=== PATIENT | male | born 1955 | race Caucasian/White ===

== ENCOUNTER → 2017-06-04 | Outpatient (CLI) | payer BC ==
[~2017-06-04] MED LIST: AMLO2.5T PO; ASPI1TAB83 PO; CLOP1TAB5 PO; CPR500 PO; GLC/500 PO; KLN5 PO; LOSA50TA54 PO; LPT/40 PO; NTRGSL/4 SL; PROP80CA7 PO; SERT1TAB92 PO
--- NOTE | 2017-06-04 14:44 | DIAGNOSTIC IMAGING REPORT ---
VIDEO SWALLOW HISTORY: DYSPHASIA TECHNIQUE: Video fluoroscopic evaluation of swallowing was performed in the AP and lateral projections by the speech pathology staff. The patient is fed nectar-thick and thin liquid barium, a barium coated wafer, and barium pudding. FLUOROSCOPY TIME: 1.4 minutes. NUMBER OF FLUOROSCOPY IMAGES: 0 COMPARISON STUDY: None. FINDINGS: There is normal hyoid excursion and epiglottic deflection. No significant penetration or aspiration identified. Swallowing function is within normal limits. IMPRESSION: 1. No aspiration identified. 2. Please see the speech pathologist report for detailed findings and recommendations. Electronically signed by: Kenneth Soto M.D. 06/04/2017 2:43 PM Dictated Date/Time: 06/04/2017 2:41 PM
--- NOTE | 2017-06-04 18:44 | SWALLOWING EVALUATION ---
REFERRING SPEECH PATHOLOGIST: n/a HISTORY: This 61 year-old male was referred for a VFSS at [facility] in order to address c/o difficulty swallowing while wearing CPAP and difficulty swallowing liquids in sequential swallows. Specifically, the patient states he has trouble drinking soda quickly. The patient has a PMH significant for mood disorder, UTI, DM II, and hypertension. He denies GERD, solid food dysphagia and odynophagia. Currently the patient's diet level is regular. PROCEDURE: The patient was seen in the Radiology Department of [facility] for the VFSS. Cursory examination of the oral cavity revealed adequate dentition. Movement of the articulators was WNL. The patient was seated on a stool and was viewed in both the Anterior-Posterior (A-P) and Lateral planes. Volitional phonation exercises completed in the A-P plane revealed bilateral vocal fold movement and vocal intensity within functional limits. In the lateral plane, the patient was given the following boluses: 1 tsp. thin liquid barium x 2, single swallow thin liquid barium self-presented from a cup, sequential swallows of thin liquid barium self-presented from a cup, 1 tsp. nectar-thick liquid barium, single swallow nectar-thick liquid barium self-presented from a cup, 1 tsp. barium pudding, and 1 club cracker with barium pudding. The patient was then repositioned into the A-P plane and given 1 tsp. barium pudding. RESULTS: Oral Stage: Labial seal, bolus control, mastication and bolus transport were all WNL. No oral bolus retention after the swallow. Initiation of the pharyngeal swallow occurred when the bolus head was in the valleculae. Oral stage of swallow considered WNL. Pharyngeal Stage: Soft palate elevation was complete. Laryngeal elevation was partial as noted by flash penetration during sequential swallows of thin liquids. Anterior hyoid excursion, epiglottic inversion and laryngeal vestibular closure appeared to be complete. Pharyngeal stripping wave was complete. There was (L) side unilateral pharyngeal bulging seen in the AP plane during the study. This cleared with a dry swallow. Distention and duration of PES opening was complete. There was a narrow column on contrast between the tongue base and pharyngeal wall with resultant mild vallecular and pyriform sinus bolus retention after the swallow. This correlates to the previously mentioned unilateral bulging and also cleared with a dry swallow. There was a single episode of flash penetration and no aspiration during this study. The pharyngeal stage of the swallow is considered mildly impaired with no real functional implications. Esophageal Stage: A pudding bolus transited the esophagus without retention. SUMMARY/RECOMMENDATIONS: This patient presents with mild pharyngeal dysphagia that does not impair swallow safety. The following is recommended: 1. Regular diet as tolerated 2. Consideration of f/u with otolaryngology and/or gastroenterology if c/o cough persist. May need to more formally r/o GERD or LPR. A summary of the results and recommendations was discussed with the patient immediately following the study. He verbalized understanding and is anticipating f/u with the referring physician. Thank you for referral of this patient. Please contact me at if any additional information is needed.
== END | disposition home or self-care (01) ==
LOC: C.RAD 13:20
PROVIDERS: ATTEND Psychiatry & Neurology Neurology
DX: R13.10 Dysphagia, unspecified (principal)

== ENCOUNTER 2024-04-12 17:52 | Inpatient (IN) ==
--- OUTSIDE RECORDS SUMMARY | 2024-04-12 17:59 | External Medical Summary | Summary of Care ---
Author Name Unknown Organization [facility] Address [address] [place] [address] Phone [phone] Care Team Providers Care Frontend Engineer Name Role Phone Lenard King MD Primary Care Provider [phone] Reason for Visit * Reason Onset Date Comments Advice 04/02/2024 Encounter Details Date Type Department Care Team (Late st Contact Info) Description 04/02/2024 Telephone [facility] [address] [place] [address] Lenard King MD [address] [place] [address] Advice Allergies Active Allergy Reactions Criticality Noted Date Comments Bee Venom Anaphylaxis High 04/26/2017 Lisinopril 08/06/2017 Cough documented as of this encounter (statuses as of 04/02/2024) Medications Medication Sig Dispensed Refills Start Date End Date Status FISH OIL 1000 MG PO CAPS one daily Active GARLIC 500 MG PO CAPS one daily Active CO Q 10 60 MG PO CAPS one daily Active ASPIRIN 81 MG PO TABS one daily Active Cod Liver Oil 1000 MG CAPS Take by mouth. Active Zoster Vac Recomb Adjuvanted 50 MCG/0.5ML Intramuscular Suspension Reconstituted (Shingrix)Indication s:Need for shingles vaccine Inject 0.5 mL into a large muscle now and repeat dose in 60 to 180 days 1 Each 1 12/10/2020 Active Additional Information Patient not taking.Reported on 03/18/2024 ARIPiprazole 2 MG Oral Tablet (Abilify) 1 Tablet in the morning. 08/02/2021 Active Lancets Use as directed. 100 Each 11 08/29/2021 Active OneTouch Ultra Blue In Vitro Strip (Glucose Blood) Use as directed 4 times a day as needed (glucose check). Use up to four times a day as directed 100 Strip 11 08/29/2021 Active hydrOXYzine HCl 50 MG Oral Tablet 03/06/2023 Active cloNIDine HCl 0.1 MG Oral Tablet (Catapres) Take 1 Tablet by mouth in the morning and 1 Tablet before bedtime. 180 Tablet 3 03/09/2024 Active Losartan Potassium-HCTZ 100-25 MG Oral Tablet (Hyzaar) Take 1 Tablet by mouth in the morning. 90 Tablet 3 03/09/2024 Active Venlafaxine HCl 37.5 MG Oral Tablet (Effexor) Take 1 Tablet by mouth in the morning and 1 Tablet before bedtime. 180 Tablet 3 03/09/2024 Active metFORMIN HCl 1000 MG Oral Tablet (Glucophage)Indicati ons:Type 2 diabetes mellitus with hemoglobin A1c goal of less than 7.0% (HCC) Take 1 Tablet by mouth 2 times a day with morning and evening meals. 180 Tablet 3 03/09/2024 Active Empagliflozin 10 MG Oral Tablet (Jardiance) Take 1 Tablet by mouth in the morning. 30 Tablet 11 04/02/2024 Active Hospital, Clinic, or Other Facility Administered Medication Ordered Dose Route Frequency Start Date End Date Status atropine sulfate inj 0.4 mgIndications:SOB (shortness of breath) 0.4 mg IV PUSH PRN 04/25/2018 Act ry documented as of this encounter (statuses as of 04/02/2024) Active Problems Problem Noted Date Diagnosed Date Class 2 obesity due to exces s calories without serious comorbidity with body mass index (BMI) of 37.0 to 37.9 in adult 02/13/2024 S/P angioplasty with stent 03/19/2022 Coronary artery disease invo lving [place] heart without angina pectoris 03/19/2022 Prostate cancer 08/17/2020 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 0 to 44.9 in adult 06/10/2017 10/19/2021 Overview: Per Obesity protocol #1 Obesity, morbid (more than 1 00 lbs over ideal weight or BMI > 40) 04/12/2017 02/13/2024 Overview: Per Obesity protocol #1 BMI 40.0-44.9, adult 04/10/2017 017 Overview: Per Obesity protocol #1 Depression 10/05/2014 08/11/2021 Obesity, Class I, BMI 30.0-3 4.9 (see actual BMI) 04/06/2013 04/10/2017 BMI 40.0-44.9, adult 08/29/2011 013 documented as of this encounter (statuses as of 04/02/2024) Immunizations Name Administration Dates Next Due Hepatitis B, 20+ yrs 04/06/2013,10/17/2012,09/15 PPD 10/16/2021,09/10/2012 TD - Tetanus/Diptheria (ADULT) 03/09/2007 TDAP (age 10 and older)(Boostrix) 09/15/2012 documented as of this encounter Social History Tobacco Use Types Packs/Day Years Used Date Smoking Tobacco: Never Passive Smoke Exposure: Never Smokeless Tobacco: Never Alcohol Use Standard Drinks/Week Comments No 0 (1 standard drink = 0.6 oz pur e alcohol) PHQ-2 Answer Date Recorded PHQ Adult Total Score 0 03/09/2024 Hunger Vital Sign Answer Date Recorded Within the past 12 months, y ou worried that your food would run out before you got the money to buy more. Patient declined Within the past 12 months, t he food you bought just didn't last and you didn't have money to get more. Patient declined 02/2024 Childcare Answer Date Recorded Do you feel overwhelmed with taking care of a child, family member or friend? No 02/13/2024 Does your family need help f inding childcare? (Household - for ages 0-17 years) Not on file 02/13/2024 Clothing Answer Date Recorded Have you been unable to get clothing when it was really needed? No 02/13/2024 Is your family able to get c lothes or diapers when needed? (Household - for ages 0-17 years) Not on file 02/13/2024 Personal Safety Answer Date Recorded Do you feel unsafe or have concerns for your saf ety? No 02/13/2024 Do you have concerns for you r family's safety? (Household - for ages 0-17 years) Not on file 02/13/2024 Utilities Answer Date Recorded Do you have trouble paying y our heating, water, or electric bill? No 02/13/2024 Is your family able to pay t he heat, water, or electric bill? (Household - for ages 0-17 years) Not on file 02/13/2024 Does your family have access to good internet? (Household - for ages 0-17 years) Not on file 02/13/2024 Employment Status Answer Date Recorded Are you unemployed or without regular income? No 02/13/2024 Does the household have a re gular source of income? (Household - for ages 0-17 years) Not on file 02/13/2024 Social Connections Answer Date Recorded How often do you feel lonely or isolated from th ose around you? Never 02/13/2024 Financial Resource Strain Answer Date R ecorded Do you have any trouble payi ng for your medications, or do you think you might in the future? No 02/13/2024 Does your family have troubl e paying for medicine? (Household - for ages 0-17 years) Not on file 02/13/2024 Transportation Needs Answer Date Record ed READ ONLY Do you have troubl e getting a ride to medical visits or work? Never True 02/13/2024 Does your family have a hard time getting a ride to doctors visits? (Household - for ages 0-17 years) Not on file 02/13/2024 Has lack of transportation k ept you from medical appointments, meetings, work, or from getting things needed for daily living? Check all that apply. (Adult - for ages 18 years and over) Not on file 02/13/2024 Do you (or your family) have trouble finding or paying for a ride (transportation)? (Household - for ages 0-17 years) Not on file 02/13/2024 Housing Stability Answer Date Recorded Do you currently live in a s helter or have no steady place to sleep at night? No 02/13/2024 READ ONLY Do you think you a re at risk of becoming homeless? No 02/13/2024 Does your family worry about paying for your home or becoming homeless? (Household - for ages 0-17 years) Not on file 0 02/13/2024 Are you homeless or worried that you might be in the future? (Adult - for ages 18 years and over) Not on file Are you (or your family) abisai eless or worried that you might be in the future? (Household - for ages 0-17 years) Not on file Food Insecurity Answer Date Recorded Do you need food for this week? No 02/13/2024 Are you able to get enough f ood for your family? (Household - for ages 0-17 years) Not on file 02/13/2024 Does your family need food t his week? (Household - for ages 0-17 years) Not on file 02/13/2024 Do you always have enough fo od for your family? (Household - for ages 0-17 years) Not on file 02/13/2024 Sex and Gender Information Value Date Recorded Sex Assigned at Male 02/13/2024 9:07 AM EDT Gender Identity Male 02/13/2024 9:07 AM EDT Sexual Orientation Straight 02/13/2024 9: 07 AM EDT Job Start Date Occupation Industry Not on file Not on file Not on file documented as of this encounter Miscellaneous Notes * Addendum Note - Lenard King MD - 04/02/2024 5:07 PM EDTAddended by: LENARD KING on: 04/02/2024 05:07 PM Modules accepted: Orders * Telephone Encounter - Lenard King MD - 04/02/2024 5:07 PM EDT Sent * Telephone Encounter - Opal Ashraf LPN - 04/02/2024 3:19 PM EDT Called and spoke with patients who states patient wanted her to speak with us and patient was agreeable to starting Jardiance as well. Please send prescription to [facility] in [place] * Telephone Encounter - Lenard King MD - 04/02/2024 3:10 PM EDT His glucose was much better though Hba1c was 7.6 from 10 this month But also agree that his DM should be better controlled too Would suggest jardiance 10 mg daily if pt agrees * Telephone Encounter - Opal Ashraf LPN - 04/02/2024 2:26 PM EDT Please advise, would you like patient to be seen for an appointment? Patient was last seen 03/09/2024 * Telephone Encounter - Prema Mena OSA - 04/02/2024 2:20 PM EDT Patient's calling in today as the pt went to neurology yesterday and the neurologist called the pt today and advised that they think the pt's confusion spells are due to his glucose levels are high and the neurologist suggested pt's diabetes medication be changed to correct the confusion Please call Margo to discuss and advise documented in this encounter Plan of Treatment Upcoming Encounters Date Type Department Care Team (Late st Contact Info) Description 05/13/2024 8:15 AM EDT Office Visit Urology [facility]azan [address] [address] Luis Senra Jr., MD [address] [address] 06/09/2024 7:40 AM EDT Office Visit [facility] [address] [place] [address] Lenard King MD [address] [place] [address] Scheduled Procedures Name Priority Associated Diagnoses Date/Ti me COLONOSCOPY FLEXIBLE PROXIMA L DIAGNOSTIC Recall Special screening for malignant neoplasms, colon Health Maintenance Due Date Last Done Comments Pneumococcal Vaccine: 65+ Years (1 of 2 - PCV) 1960 Cologuard 1999 Fecal Occult Blood Test 1999 Sigmoidoscopy 1999 Colonoscopy 11/03/2022 11/03/2012, 10/11, 09/05/2011 COVID-19 Vaccine ( season) 2023 Influenza Vaccine (FLU shot) (#1) 2024 HbA1c 08/14/2024 02/13/2024, 01/08, 10/19/2021, Additional history exists Albumin/Creatinine Ratio 02/12/2025 02/13/2024, 02/08 B-12 02/12/2025 02/13/2024, 02/08, 06/04/2017 GFR 02/12/2025 02/13/2024, 01/08, 10/19/2021, Additional history exists Depression Monitoring 03/09/2025 03/09/2024 DTaP,Tdap,and Td Vaccines Discontinued 09/15/2012, 09/2006 Hepatitis B Vaccine Completed 04/06/2013, 10/17/2012, 09/15/2012 *BASELINE EKG FOR HTN Completed 04/21/2018, 011 Diabetic Foot Exam Discontinued 08/11/2021, 0 03/04/2020, 01/13/2019, Additional history exists Diabetic Eye Exam Discontinued 02/13/2024, , 04/18/2017, Additional history exists Colorectal Cancer Screening Discontinued HPV (Gardasil) Vaccine Aged Out No lo nger eligible based on patient's age to complete this topic Hepatitis C Screening Discontinued MENINGOCOCCAL (MENACTRA/MENVEO) Aged Out No longer eligible based on patient's age to complete this topic Zoster Vaccines Discontinued documented as of this encounter Medical Devices Implanted Type Area Boiler House Operator Device Identifier Shelf Expiration Date Model / Serial / Lot Lens Intraoc 19.0 - [id number] - [id number] Implanted:Qty: 1 on 01/20/2019 by Sushil Waller MD at [facility] Left: Eye [employer] 08/08/2023 [id number] / [id number] / [id number] Lens Intraoc 19.5 - [id number] - [id number] Implanted:Qty: 1 on 02/05/2019 by Sushil Waller MD at OR [facility] Right: Eye [employer] 2023 [id number] / [id number] / [id number] documented as of this encounter Care Teams Frontend Engineer Relationship Specialty Start Date End Date Lenard King MD [address] [place] [address] PCP - General Internal Medicine 01/31/23 documented as of this encounter
--- OUTSIDE RECORDS SUMMARY | 2024-04-12 17:59 | External Medical Summary | Summary of Care ---
Author Name Unknown Organization [facility] Address [address] [place] [address] Phone [phone] Care Team Providers Care Central Aisle Cashier Name Role Phone Lenard King MD Primary Care Provider [phone] Encounter Details Date Type Department Care Team (Late st Contact Info) Description 04/09/2024 Telephone [facility] [address] [place] [address] Lenard King MD [address] [place] [address] Allergies Active Allergy Reactions Criticality Noted Date Comments Bee Venom Anaphylaxis High 04/26/2017 Lisinopril 08/06/2017 Cough documented as of this encounter (statuses as of 04/09/2024) Medications Medication Sig Dispensed Refills Start Date [...] Recomb Adjuvanted 50 MCG/0.5ML Intramuscular Suspension Reconstituted (Shingrix)Indicati ons:Need for shingles vaccine Inject 0.5 mL into a large muscle now and repeat dose in 60 to 180 days 1 Each 1 1 Active Additional Information Patient not taking.Reported on 03/18/2024 ARIPiprazole 2 MG Oral Tablet (Abilify) 1 Tablet in the morning. 11/24/202 1 Active Lancets Use as directed. 100 Each 11 1 Active OneTouch Ultra Blue In Vitro Strip (Glucose Blood) Use as directed 4 times a day as needed (glucose check). Use up to four times a day as directed 100 Strip 11 1 Active hydrOXYzine HCl 50 MG Oral Tablet 3 Active cloNIDine HCl 0.1 MG Oral Tablet (Catapres) Take 1 Tablet by mouth in the morning and 1 Tablet before bedtime. 180 Tablet 3 4 Active Losartan Potassium-HCTZ 100-25 MG Oral Tablet (Hyzaar) Take 1 Tablet by mouth in the morning. 90 Tablet 3 4 Active Venlafaxine HCl 37.5 MG Oral Tablet (Effexor) Take 1 Tablet by mouth in the morning and 1 Tablet before bedtime. 180 Tablet 3 4 Active metFORMIN HCl 1000 MG Oral Tablet (Glucophage)Indica tions:Type 2 diabetes mellitus with hemoglobin A1c goal of less than 7.0% ([facility]) Take 1 Tablet by mouth 2 times a day with morning and evening meals. 180 Tablet 3 4 Active glipiZIDE ER 5 MG Oral Tablet Extended Release 24 Hour (glipiZIDE XL) Take 1 Tablet by mouth in the morning. 30 minutes before a meal.. 30 Tablet 5 4 Active Empagliflozin 10 MG Oral Tablet (Jardiance) Take 1 Tablet by mouth in the morning. 30 Tablet 11 4 04/09/20 24 Discontinued Hospital, Clinic, or Other Facility Administered Medication Ordered Dose Route Frequency Start Date End Date Status atropine sulfate inj 0.4 mgIndications:SOB (shortness of breath) 0.4 mg IV PUSH PRN 04/25/2018 Act ry documented as of this encounter (statuses as of 04/09/2024) Active Problems Problem Noted Date Diagnosed Date Class 2 obesity due to exces s calories without serious comorbidity with body mass index (BMI) of 37.0 to 37.9 in adult 02/13/2024 S/P angioplasty with stent 03/19/2022 Coronary artery disease invo lving [place] heart without angina pectoris 03/19/2022 Prostate cancer [...] as of this encounter (statuses as of 04/09/2024) Resolved Problems Problem Noted Date Diagnosed Date [...] as of this encounter (statuses as of 04/09/2024) Immunizations Name Administration Dates Next Due Hepatitis [...] as of this encounter Miscellaneous Notes * Telephone Encounter - Lenard King MD - 04/09/2024 12:37 PM EDT Will send glipizide 5 mg daily which is cheap * Telephone Encounter - Jaime Mccann MED ASSIST - 04/09/2024 12:31 PM EDT Please advise * Telephone Encounter - Mariella Simental conference center coordinator - 04/09/2024 11:39 AM EDT RE Empagliflozin 10 MG Oral Tablet (Jardiance Pt can not afford above medication Please send an alternative I did sent a request to rx assist for help also Thank you for your assistance Mariella Simental Social Work Lecturer II [facility] 04/09/2024,11:40 AM documented in this encounter Plan of Treatment Upcoming Encounters Date Type Department Care Team (Late st Contact Info) Description 05/13/2024 8:15 AM EDT Office Visit Urology Dalila Bazan [address] [facility] [address] [address] Luis Serna Jr., MD [address] [address] 06/09/2024 7:40 AM EDT Office Visit [facility] [address] [place] [facility] [place] [address] Lenard King MD [address] [place] [address] Scheduled Procedures Name Priority Associated [...] Hepatitis B Vaccine Completed 04/06/2013, 10/17/2012, 09/15/2012 Diabetic Foot Exam Discontinued 08/11/2021, 0 03/04/2020, [...] this encounter Medical Devices Implanted Type Area House Manager Device Identifier Shelf Expiration Date Model / Serial / Lot Lens Intraoc 19.0 - [id number] - [id number] Implanted:Qty: 1 on 01/20/2019 by Sushil Waller MD at [facility] Left: Eye [employer] 08/08/2023 [id number] / [id number] / [id number] Lens Intraoc 19.5 - [id number] - [id number] Implanted:Qty: 1 on 02/05/2019 by Sushil Waller MD at OR [facility] Right: Eye [employer] 2023 [id number] / [id number] / [id number] documented as of this encounter Care Teams Central Aisle Cashier Relationship Specialty Start Date End Date Lenard King MD [address] [place] [id number] PCP - General Internal Medicine 01/31/23 documented as of this encounter
--- OUTSIDE RECORDS SUMMARY | 2024-04-12 17:59 | External Medical Summary | Summary of Care ---
Author Name Unknown Organization [facility] Address [address] [place] [address] Phone [phone] Care Team Providers Care Industrial Pipefitter Journeyman Name Role Phone Lenard King MD Primary Care Provider [phone] Reason for Visit * Reason Onset Date Comments Patient Assistance Program 04/09/2024 Empag liflozin 10 MG Oral Tablet (Jardiance Encounter Details Date Type Department Care Team (Late st Contact Info) Description 04/09/2024 Telephone [facility] [address] [place] [address] Lenard King MD [address] [place] [address] Patient Assistance Program (Empagliflozin ... Allergies Active Allergy Reactions Criticality Noted Date Comments Bee Venom Anaphylaxis High 04/26/2017 Lisinopril 08/06/2017 Cough documented as of this encounter (statuses as of 04/11/2024) Medications Medication Sig Dispensed Refills Start Date [...] evening meals. 180 Tablet 3 03/09/2024 Active Hospital, Clinic, or Other Facility Administered Medication Ordered Dose Route Frequency Start Date End Date Status atropine sulfate inj 0.4 mgIndications:SOB (shortness of breath) 0.4 mg IV PUSH PRN 04/25/2018 Act ry documented as of this encounter (statuses as of 04/11/2024) Active Problems Problem Noted Date Diagnosed Date Class 2 obesity due to exces s calories without serious comorbidity with body mass index (BMI) of 37.0 to 37.9 in adult 02/13/2024 S/P angioplasty with stent 03/19/2022 Coronary artery disease invo lving [place] heart without angina pectoris 03/19/2022 Prostate cancer [...] as of this encounter (statuses as of 04/11/2024) Resolved Problems Problem Noted Date Diagnosed Date [...] as of this encounter (statuses as of 04/11/2024) Immunizations Name Administration Dates Next Due Hepatitis [...] encounter Miscellaneous Notes * Telephone Encounter - Mariella Simental, metal organ pipe maker - 04/09/2024 11:37 AM EDT Patient is unable to afford their prescription and would like assistance in getting this medication. Please see the following for further information regarding this request: Medication: Empagliflozin 10 MG Oral Tablet (Jardiance Clinic location: [place] Reason pt cannot pick-up: cost Initial therapy?: yes Has pt been without med?: never had it before Patient's contact #: [phone] Pt would like to explore their options for obtaining this medication. Please advise pt at the phonenumber listed above. Thank you. Thank you for your assistance Mariella Simental Cattle Alley Worker II [facility] 04/09/2024,11:38 AM documented in this encounter Plan of Treatment Upcoming Encounters Date Type Department Care Team (Late st Contact Info) Description 05/13/2024 8:15 AM EDT Office Visit Urology Dalila Bazan [address] [facility] [address] [address] Luis Serna Jr., MD [address] [address] 06/09/2024 7:40 AM EDT Office Visit [facility] [address] [place] [phone] Lenard King MD [address] [place] [address] Scheduled Procedures Name Priority Associated [...] this encounter Medical Devices Implanted Type Area Division Engineer Device Identifier Shelf Expiration Date Model / Serial / Lot Lens Intraoc 19.0 - [id number] - [id number] Implanted:Qty: 1 on 01/20/2019 by Sushil Waller MD at OR [facility] Left: Eye [employer] 08/08/2023 [id number] / [id number] / [id number] Lens Intraoc 19.5 - [id number] - [id number] Implanted:Qty: 1 on 02/05/2019 by Sushil Waller MD at OR [facility] Right: Eye [employer]OM[employer] 2023 [id number] / [id number] / [id number] documented as of this encounter Care Teams Industrial Pipefitter Journeyman Relationship Specialty Start Date End Date Lenard King MD [address] [place] [address] PCP - General Internal Medicine 01/31/23 documented as of this encounter
--- OUTSIDE RECORDS SUMMARY | 2024-04-12 17:59 | External Medical Summary | Summary of Care ---
Author Name Unknown Organization [facility] Address [address] [place] [address] Phone [phone] Care Team Providers Care Biscuit Packer Name Role Phone Lenard King MD Primary Care Provider [phone] Reason for Visit * Reason Onset Date Comments Advice 04/02/2024 Encounter Details Date Type Department Care Team (Late st Contact Info) Description 04/02/2024 Telephone [facility] [address] [place] [address] Lenard King MD [address] [place] [address] Advice Allergies Active Allergy Reactions [...] stent 03/19/2022 Coronary artery disease invo lving [place] heart without angina pectoris 03/19/2022 Prostate cancer [...] encounter Miscellaneous Notes * Telephone Encounter - Opal Ashraf LPN - 04/02/2024 3:19 PM EDT Called and spoke with patients who states patient wanted her to speak with us and patient was agreeable to starting Jardiance as well. [facility] send prescription to [facility] [place] * Telephone Encounter - Lenard King MD [...] AM EDT Office Visit Urology Dalila Bazan [address] [facility] [address] [address] Kareem Thomas, Luis Razo MD [address] [address] 06/09/2024 7:40 AM EDT [address] [phone] Lenard King MD [address] [phone] Scheduled Procedures Name Priority Associated Diagnoses Date/Ti [...] this encounter Medical Devices Implanted Type Area Diesel Technician Mechanic Device Identifier Shelf Expiration Date Model / Serial / Lot Lens Intraoc 19.0 - [id number] - [id number] Implanted:Qty: 1 on 01/20/2019 by Sushil Waller MD at OR [facility] Left: Eye [employer] 08/08/2023 [id number] / [id number] / [id number] Lens Intraoc 19.5 - [id number] - [id number] Implanted:Qty: 1 on 02/05/2019 by Sushil Wlaler MD at OR [facility] Right: Eye [employer] 2023 [id number] / [id number] / [id number] documented as of this encounter Care Teams Biscuit Packer Relationship Specialty Start Date End Date Lenard King MD [address] [place] [address] PCP - General Internal Medicine 01/31/23 documented as of this encounter
--- OUTSIDE RECORDS SUMMARY | 2024-04-12 17:59 | External Medical Summary | Summary of Care ---
Author Name Unknown Organization [facility] Address [address] [place] [address] Phone [phone] Care Team Providers Care Consultant Teacher Name Role Phone Lenard King MD Primary Care Provider [phone] Reason for Visit * Reason Onset Date Comments Advice 04/02/2024 Encounter Details Date Type Department Care Team (Late st Contact Info) Description 04/02/2024 Telephone [facility] [address] [place] [address] Lenard King MD [address] [place] [address] Advice Allergies Active Allergy Reactions [...] stent 03/19/2022 Coronary artery disease invo lving [place] heart without angina pectoris 03/19/2022 Prostate cancer [...] was agreeable to starting Jardiance as well. * Telephone Encounter - Lenard King MD [...] Office Visit Urology Dalila Bazan [address] [facility] [address] [address] Luis Serna Jr., MD [address] [address] 06/09/2024 7:40 AM EDT Office Visit [address] [place] [address] Lenard King MD [address] [facility] [place] [address] Scheduled Procedures Name Priority Associated [...] this encounter Medical Devices Implanted Type Area Public Service Administrator Device Identifier Shelf Expiration Date Model / Serial / Lot Lens Intraoc 19.0 - [id number] - [id number] Implanted:Qty: 1 on 01/20/2019 by Sushil Waller MD at OR [facility] Left: Eye [employer] 08/08/2023 [id number] / [id number] / [id number] Lens Intraoc 19.5 - [id number] - [id number] Implanted:Qty: 1 on 02/05/2019 by Sushil Waller MD at OR [facility] Right: Eye [employer]OM[employer] 2023 [id number] / [id number] / [id number] documented as of this encounter Care Teams Consultant Teacher Relationship Specialty Start Date End Date Lenard King MD [address] [place] [address] PCP - General Internal Medicine 01/31/23 documented as of this encounter
--- OUTSIDE RECORDS SUMMARY | 2024-04-12 17:59 | External Medical Summary | Summary of Care ---
Author Name Unknown Organization [facility] Address [address] [place] [address] Phone [phone] Care Team Providers Care Front Of House Manager Name Role Phone Lenard King MD Primary Care Provider [phone] Reason for Visit * Reason Onset Date Comments Advice 04/02/2024 Encounter Details Date Type Department Care Team (Late st Contact Info) Description 04/02/2024 Telephone [facility] [address] [place] [address] Lenard King MD [address] [place] [address] Advice Allergies Active Allergy Reactions [...] stent 03/19/2022 Coronary artery disease invo lving [place] heart without angina pectoris 03/19/2022 Prostate cancer [...] well. [facility] [place] * Telephone Encounter - Lenard King MD [...] Office Visit Urology Dalila Bazan [address] [facility] [address] [address] Kareem Thomas, Luis Razo MD [address] [address] 06/09/2024 7:40 AM EDT [address] [phone] Lenard King MD [address] [phone] Scheduled Procedures Name Priority Associated Diagnoses Date/Ti [...] this encounter Medical Devices Implanted Type Area Wing Coverer Device Identifier Shelf Expiration Date Model / Serial / Lot Lens Intraoc 19.0 - [id number] - [id number] Implanted:Qty: 1 on 01/20/2019 by Sushil Waller MD at OR [facility] Left: Eye [employer]OM[employer] 08/08/2023 [id number] / [id number] / [id number] Lens Intraoc 19.5 - [id number] - [id number] Implanted:Qty: 1 on 02/05/2019 by Sushil Waller MD at OR [facility] Right: Eye [employer]OM[employer] 2023 [id number] / [id number] / [id number] documented as of this encounter Care Teams Front Of House Manager Relationship Specialty Start Date End Date Lenard King MD [address] [place] [address] PCP - General Internal Medicine 01/31/23 documented as of this encounter
--- OUTSIDE RECORDS SUMMARY | 2024-04-12 17:59 | External Medical Summary | Summary of Care ---
Author Name Unknown Organization [facility] Address [address] [place] [address] Phone [phone] Care Team Providers Care Clinical Services Specialist Name Role Phone Lenard King MD Primary Care Provider Encounter Details Date Type Department Care Team (Late st Contact Info) Description 04/09/2024 Telephone [facility] [address] [place] [address] Lenard King MD [address] [place] [address] Allergies Active Allergy Reactions Criticality [...] hemoglobin A1c goal of less than 7.0% ([facility]) Take 1 Tablet by mouth 2 times [...] stent 03/19/2022 Coronary artery disease invo lving [place] heart without angina pectoris 03/19/2022 Prostate cancer [...] encounter Miscellaneous Notes * Telephone Encounter - Facer, Jaime, MED ASSIST - 04/09/2024 1:21 PM EDT Attempted to contact patient, left voicemail stating sent in a cheaper rx glipizide * Telephone Encounter - Lenard King MD - 04/09/2024 12:37 PM EDT Will send glipizide 5 mg daily which is cheap * Telephone Encounter - Jaime Mccann MED ASSIST - 04/09/2024 12:31 PM EDT Please advise * Telephone Encounter - Mariella Simental coal sampler - 04/09/2024 11:39 AM EDT RE Empagliflozin 10 MG Oral Tablet (Jardiance Pt can not afford above medication Please send an alternative I did sent a request to rx assist for help also Thank you for your assistance Mariella Simental Equipment Validation Engineer II [facility] 04/09/2024,11:40 AM documented in this encounter Plan of Treatment Upcoming Encounters Date Type Department Care Team (Late st Contact Info) Description 05/13/2024 8:15 AM EDT Office Visit Urology Dalila Bazan [address] [facility] [address] [address] Luis Serna Jr., MD [address] [address] 06/09/2024 7:40 AM EDT [address] [address] Lenard King MD [address], [place] [phone] Scheduled Procedures Name Priority Associated Diagnoses Date/Ti [...] this encounter Medical Devices Implanted Type Area Representative Personal Service Device Identifier Shelf Expiration Date Model / Serial / Lot Lens Intraoc 19.0 - [id number] - [id number] Implanted:Qty: 1 on 01/20/2019 by Sushil Waller MD at OR [facility] Left: Eye [employer]OMB 08/08/2023 [id number] / [id number] / [id number] Lens Intraoc 19.5 - [id number] - [id number] Implanted:Qty: 1 on 02/05/2019 by Sushil Waller MD at OR [facility] Right: Eye [employer]OMB 2023 [id number] / [id number] / [id number] documented as of this encounter Care Teams Clinical Services Specialist Relationship Specialty Start Date End Date Lenard King MD [address] [place] [address] PCP - General Internal Medicine 01/31/23 documented as of this encounter
--- NOTE | 2024-04-12 18:36 | Emergency Department Note ---
History of Present Illness General Chief complaint: Neuro Symptoms/Deficit Stated complaint: CONFUSION, NOT ABLE TO FEED/DRESS HIMSELF Time Seen by Provider: 04/12/24 18:15 Source: patient, family ( was at the bedside), RN notes reviewed and old records reviewed (Neurology office visit from 04-01-24 for confusion) Mode of arrival: ambulatory Limitations: no limitations History of Present Illness This patient is 68-year-old male whose had about a month worth of episodic confusion he has gets confused intermittently. They were out of town and it got worse yesterday where he did know what issue was he put his shirt on his leg and he could not feed himself. They came back in town and he was fine comparatively today he has been much better. He has been seen by his primary doctor has had labs done which thus far unremarkable he was seen by Dr. Stevens in neurology and scheduled for an MRI. The is concerned that they need the MRI sooner. He has had no fall or trauma he has no physical complaints at present. Denies headache neck pain or stiffness no rash no tick bites no chest pain no shortness of breath. No nausea or vomiting is been eating and drinking is normally no back pain. He is a diabetic. No urinary symptoms. Home Medications Medication Instructions Recorded Confirmed Type aripiprazole 2 mg tablet (Abilify) 2 mg PO DAILY 04/12/24 04/12/24 History aspirin 81 mg tablet,delayed 81 mg PO DAILY 04/12/24 04/12/24 History release clonidine HCl 0.1 mg tablet 0.1 mg PO AMHS 04/12/24 04/12/24 History coQ10 (ubiquinol) 100 mg capsule 0 mg PO DAILY 04/12/24 04/12/24 History garlic 500 mg capsule 500 mg PO DAILY 04/12/24 04/12/24 History glipizide 5 mg tablet, extended 5 mg PO QAM 04/12/24 04/12/24 History release 24 hr hydroxyzine HCl 50 mg tablet 50 mg PO HS 04/12/24 04/12/24 History losartan 100 1 tab PO QAM 04/12/24 04/12/24 History mg-hydrochlorothiazide 25 mg tablet metformin 1,000 mg tablet 1,000 mg PO BIDWMEAL 04/12/24 04/12/24 History omega-3 240 is-qsn-hbn-cod liver 1 cap PO DAILY 04/12/24 04/12/24 History oil 1,000 mg-vit A-vit D3 capsule (cod liver oil) omega-3 fatty acids 1,000 mg 1,000 mg PO DAILY 04/12/24 04/12/24 History capsule venlafaxine 37.5 mg tablet 37.5 mg PO AMHS 04/12/24 04/12/24 History Allergies Allergy/AdvReac Type Severity Reaction Status Date / Time lisinopril AdvReac Intermediate dry cough Verified 04/12/24 21:29 Past Med/Surg History Problem List (Updated 04/13/24 @ 01:12 by Jamari Mackey MD) COVID (Acute) Elevated troponin (Acute) New onset a-fib (Acute) Confusion (Acute) Mild cognitive impairment Abnormal colonoscopy LISBETH on CPAP Diabetes (Chronic) Hypertension (Chronic) Anxiety (Acute) MDD (major depressive disorder) (Acute 10/10/14) Mood disorder (Acute) UTI (urinary tract infection) (Acute) Medical History Fusion of spine CERV, below c2 Acute pancreatitis Family History Other Cancer Glaucoma Hypertension Vascular disease Social History Smoking Status: Never smoker Hx Alcohol Use: No Hx Substance Use: No Preferred Language: Macedonian Communication Ability: Effective Surfacer Required: No Beliefs That Will Affect Care: None Current Living Situation: Spouse Other Information That Helps Us Care for You: No Feels Safe at Home: Yes Safety Concerns: Feels Safe At This Time Assistive Devices: CPAP Review of Systems A total of 10 systems reviewed and were otherwise negative Physical Exam Vital Signs Vital Signs - 24 hr 04/12/24 17:57 04/12/24 18:18 04/12/24 18:19 Temperature 36.3 C L Temperature Source Temporal Artery Scan Pulse Rate 84 107 H 126 H Pulse Rate [Apical] Pulse Rate from SpO2 Sensor 73 Pulse Rhythm [Apical] Pulse Strength [Apical] Respiratory Rate 14 23 Respiratory Effort / Characteristics Respiratory Depth Respiratory Pattern Blood Pressure 133/91 Blood Pressure [Left Arm] Blood Pressure Mean 105 Blood Pressure Mean [Left Arm] Blood Pressure Position [Left Arm] Pulse Oximetry 95 93 Oxygen Delivery Method Room Air Sepsis New/Unexplained Change in Mental Status No Sepsis Action Taken by Nursing No Action Required 04/12/24 18:23 04/12/24 18:28 04/12/24 18:30 Temperature Temperature Source Pulse Rate 110 H 114 H Pulse Rate [Apical] Pulse Rate from SpO2 Sensor 81 Pulse Rhythm [Apical] Pulse Strength [Apical] Respiratory Rate 24 Respiratory Effort / Characteristics Respiratory Depth Respiratory Pattern Blood Pressure Blood Pressure [Left Arm] Blood Pressure Mean Blood Pressure Mean [Left Arm] Blood Pressure Position [Left Arm] Pulse Oximetry 93 94 93 Oxygen Delivery Method Room Air Room Air Sepsis New/Unexplained Change in Mental Status Sepsis Action Taken by Nursing 04/12/24 18:31 04/12/24 20:00 Temperature Temperature Source Pulse Rate Pulse Rate [Apical] 93 H Pulse Rate from SpO2 Sensor Pulse Rhythm [Apical] Regular Pulse Strength [Apical] Normal Respiratory Rate 18 Respiratory Effort / Characteristics Non-Labored Spontaneous Respiratory Depth Normal Respiratory Pattern Regular Blood Pressure 133/90 Blood Pressure [Left Arm] 145/88 H Blood Pressure Mean 108 Blood Pressure Mean [Left Arm] 107 Blood Pressure Position [Left Arm] Lying Pulse Oximetry 94 Oxygen Delivery Method Room Air Sepsis New/Unexplained Change in Mental Status Sepsis Action Taken by Nursing General: Well developed well nourished older male who appears in no acute distress, breathing comfortably on room air. Normal speech, nonslurred. Answering questions appropriately his mentation seems normal at present HEENT: Normal cephalic atraumatic. Pupils are equal round and reactive to light. Extraocular movements are intact. Oropharynx is pink with moist mucous membranes. No swelling of the mouth lips or tongue. Neck: Supple with a midline trachea. No meningeal signs or stiffness, no JVD or bruits. No Stridor. Chest: Clear to auscultation bilaterally. No wheezes or rhonchi. No increased work of breathing. Heart: Regular rate and rhythm without murmurs or gallops. Abdomen: Soft nontender, nondistended without rebound guarding or rigidity. Extremities: No cyanosis clubbing or edema. No calf tenderness or assymetry Spine/Back. Non tender to palpation. No CVA tenderness Skin: Good turgor without rashes. Neurologic exam: Cranial nerves two through 12 are intact. Motor and sensation are intact and symmetrical throughout. No tremor. Course Administered Medications Gadobutrol (Gadobutrol 10ml Vial) 10 ml IV ONCE ONE Stop: 04/13/24 01:03 Last Admin: 04/13/24 01:03 Dose: 10 ml Documented By: ARIAN Sodium Chloride (Nss) 1,000 mls @ 80 mls/hr IV .[id number] [facility] Stop: 04/13/24 11:16 Last Admin: 04/12/24 23:07 Dose: 80 mls/hr Documented By: SHYANNE Insulin Aspart (Insulin Aspart Per Unit Charge) 0 units SC Q6 [facility] Stop: 05/13/24 00:00 Last Admin: 04/12/24 23:27 Dose: Not Given Documented By: SHYANNE Discontinued Medications Sodium Chloride (Nss) 500 mls @ 999 mls/hr IV .Q31M ONE Stop: 04/12/24 20:07 Last Infusion: 04/12/24 20:26 Dose: Infused Documented By: Admin: 04/12/24 19:47 Dose: 999 mls/hr Documented By: SHARON Medical Decision Making Differential Diagnosis Electrolyte or metabolic abnormality, neurologic disease, memory issues, dementia, medication side effects, diabetes complication, Medical Records Attestation: I reviewed the patient's medical records. Home Medications Current Medication List: was personally reviewed by me Laboratory Data Attestation: I reviewed the patient's lab results. 04/12/24 18:16 04/12/24 18:16 Lab Results 04/12/24 04/12/24 04/12/24 Range/Units 18:16 18:40 18:49 WBC 8.65 (4.8-10.8) K/ul RBC 4.88 (4.70-6.10) M/uL Hgb 15.6 (14.0-18.0) g/dl Hct 45.9 (42.0-52.0) % MCV 94.1 (80.0-100.0) fL MCH 32.0 (25.0-34.0) pg MCHC 34.0 (32.0-36.0) g/dL RDW Std Deviation 44.3 (36.4-46.3) fL RDW Coeff of Laura 12.9 (11.5-14.5) % Plt Count 233 (130-400) K/uL MPV 10.6 (9.4-12.4) fL Immature Gran % (Auto) 0.3 % Neut % (Auto) 44.4 % Lymph % (Auto) 38.4 % Loup % (Auto) 15.4 % Eos % (Auto) 0.8 % Baso % (Auto) 0.7 % Neut # (Auto) 3.84 (1.40-6.50) K/uL Lymph # (Auto) 3.32 (1.20-3.40) K/uL Loup # (Auto) 1.33 H (0.11-0.59) K/uL Eos # (Auto) 0.07 (0.00-0.50) K/uL Baso # (Auto) 0.06 (0.00-0.20) K/uL Immature Gran # (Auto) 0.03 (0.01-0.20) K/uL PT 10.9 (9.0-12.0) Seconds INR 1.0 (0.9-1.1) APTT 27 (21-31) Seconds PTT Ratio 1.0 Sodium 137 (136-145) mmol/L Potassium 3.4 L (3.5-5.1) mmol/L Chloride 97 L (98-107) mmol/L Carbon Dioxide 30 (21-32) mmol/L Anion Gap 10 (3-11) BUN 24 H (6-23) mg/dl Creatinine 1.10 (0.6-1.4) mg/dl Est Cr Clr Drug Dosing 84.2 ml/min Est GFR ( Amer) 79.0 ml/min Est GFR (Non-Af Amer) 68.1 ml/min BUN/Creatinine Ratio 21.8 H (10-20) Glucose 104 H (70-99(Fasting)) mg/dl Calcium 9.1 (8.6-10.3) mg/dl Magnesium 1.9 (1.7-2.4) mg/dl Total Bilirubin 0.7 (0.2-1.0) mg/dl AST 39 (13-39) U/L ALT 39 (7-52) U/L Alkaline Phosphatase 47 (34-104) U/L Troponin I High Sens 83.4 H* (0-20) pg/ml B-Natriuretic Peptide 133 H (0-100) pg/ml Total Protein 7.7 (6.0-8.3) gm/dl Albumin 4.3 (3.4-5.0) gm/dl Globulin 3.4 (2.5-4.0) gm/dl Albumin/Globulin Ratio 1.3 (0.9-2) SARS-CoV-2 (PCR) POSITIVE A (Negative) Imaging Data Attestation: I personally reviewed and interpreted this imaging study as follows: My Impression: Chest x-rayno acute infiltrate, failure, pneumothorax seen Head CTno hemorrhage or mass effect seen Radiologist's Impression: Chest X-Ray 04/12/24 18:28 XR chest 1V portable HISTORY: Chest pain, nonspecific COMPARISON: None. FINDINGS: The lungs are clear. Cardiac silhouette is normal in size. No pleural effusions. No pneumothorax. IMPRESSION: No acute process. ACT 112: Negative or not required by law. Electronically signed by: Yaniv Pate M.D. 04/12/2024 7:[address] 04/12/24 18:39 Exam(s): CT HEAD Without Contrast EXAM: CT Head Without Intravenous Contrast CLINICAL HISTORY: Reason for exam: confusion, a fib. TECHNIQUE: Axial computed tomography images of the head/brain without intravenous contrast. CTDI is 34.93 mGy and DLP is 624.41 mGy-cm. Automated exposure control was utilized for the study. A dose lowering technique was utilized adhering to the principles of ALARA. COMPARISON: No relevant prior studies available. FINDINGS: Brain: Remote ischemic injury of the left thalamus and capsule. No hemorrhage. Mild nonspecific white matter changes. No edema. Ventricles: Unremarkable. No ventriculomegaly. Bones/joints: Unremarkable. No acute fracture. Soft tissues: Unremarkable. Sinuses: Chronic ethmoid and left frontal sinusitis. No acute sinusitis. Mastoid air cells: Unremarkable as visualized. No mastoid effusion. IMPRESSION: No evidence of acute intracranial pathology. Electronically signed by: Nitza Garcia MD 04/12/24 23:23 PM ECG Data Attestation: I personally reviewed and interpreted this ECG as follows: Indication: + chest pain Rate (beats per minute): 112 Rhythm: + atrial fibrillation ECG Intervals/blocks: + Normal QRS, + Normal QT and + Normal FL ECG [place]: + Normal ECG ST segments: + Normal ST segments ECG Findings: no PACs or no PVCs Comparison ECG Date: from (10/04/2017) [facility] Narrative This patient comes in as described above. He was placed in room B2. He has been have intermittent confusion over the last month. IV access was established. blood work was obtained. He is asymptomatic at present however his EKG does look like A-fib. He does not have a history of this. Multiple blood testing was obtained. I did order a CT which was normal. Urinalysis was ordered as well. I reviewed the old records. The patient looks well and has a normal neurologic exam at present. The patient was noted to be in A-fib his troponin was also elevated has no chest pain or shortness of breath. His COVID test was positive as well which I do not think explains is all of his symptoms but is certainly not helping . he has no significant electrolyte or metabolic abnormalities. chest x-ray was unremarkable. he was hydrated normal saline. I do think he needs to be admitted for treatment and evaluation of his new onset A- fib as well as his memory issues he will need an MRI while he is in the hospital as well. I discussed case with Dr. Valladares, who saw the patient ER for admission/observation Continuous cardiac monitoring: Orders placed in EMR for continuous desk monitor: Upon my evaluation patient noted to be in A-fib with a rate of 100. Impression & Plan Confusion, New onset a-fib, Elevated troponin, COVID Discharge Plan Visit Data Chief Complaint: Neuro Symptoms/Deficit Stated Complaint: CONFUSION, NOT ABLE TO FEED/DRESS HIMSELF ED Provider: Jamari Mackey Discharge Problem: Confusion, New onset a-fib, Elevated troponin, COVID Patient Disposition: Admitted As Inpatient Discharge Instructions Interventions: ED Discharge Assessment Last Done: 04/12/24 22:33
[2024-04-12 18:48] LABS: Basophils # (auto) 0.06 K/uL (0.00-0.20); Basophils % (auto) 0.7 %; Eosinophils # (auto) 0.07 K/uL (0.00-0.50); Eosinophils % (auto) 0.8 %; Hematocrit (blood only) 45.9 % (42.0-52.0); Hemoglobin 15.6 g/dl (14.0-18.0); Immature Granulocytes # (auto) 0.03 K/uL (0.01-0.20); Immature Granulocytes % (auto) 0.3 %; Lymphocytes # (auto) 3.32 K/uL (1.20-3.40); Lymphocytes % (auto) 38.4 %; Mean Corpuscular Volume 94.1 fL (80.0-100.0); Mean Platelet Volume 10.6 fL (9.4-12.4); Monocytes # (auto) 1.33 K/uL (0.11-0.59); Monocytes % (auto) 15.4 %; Neutrophils # (auto) 3.84 K/uL (1.40-6.50); Neutrophils % (auto) 44.4 %; Platelet Count 233 K/uL (130-400); RDW Coefficient of Variation 12.9 % (11.5-14.5); RDW Standard Deviation 44.3 fL (36.4-46.3); Red Blood Count 4.88 M/uL (4.70-6.10); White Blood Count 8.65 K/ul (4.8-10.8)
[2024-04-12 18:56] LABS: Albumin Globulin Ratio 1.3 (0.9-2); Albumin Level 4.3 gm/dl (3.4-5.0); BUN Creatinine Ratio 21.8 (10-20); Bilirubin,Total 0.7 mg/dl (0.2-1.0); Calcium 9.1 mg/dl (8.6-10.3); Creatinine Clr Calc Pharmacy 84.2 ml/min; Est GFR (Non-African American) 68.1 ml/min; Globulin 3.4 gm/dl (2.5-4.0); Potassium 3.4 mmol/L (3.5-5.1); Total Protein 7.7 gm/dl (6.0-8.3)
[2024-04-12 19:12] LABS: Partial Thromboplastin Time 27 Seconds (21-31); Prothrombin Time 10.9 Seconds (9.0-12.0)
[2024-04-12 19:39] LABS: Magnesium 1.9 mg/dl (1.7-2.4); Troponin I High Sensitivity 83.4 pg/ml (0-20)
[2024-04-12] MEDS: SODIUM CHLORIDE 0.9% 500 ML IV ONE (19:47)
--- NOTE | 2024-04-12 19:58 | XRay Report ---
XR chest 1V portable HISTORY: Chest pain, nonspecific COMPARISON: None. FINDINGS: The lungs are clear. Cardiac silhouette is normal in size. No pleural effusions. No pneumot horax. IMPRESSION: No acute process. ACT 112: Negative or not required by law. Electronically signed by: Yainv Pate M.D. 04/12/2024 7:56 PM
[2024-04-12 22:45] LABS: Appearance Urine Clear (Clear); Bilirubin Urine Negative (Negative); Blood Urine Negative (Negative); Color Urine Yellow; Glucose Urine UA Negative (Negative); Ketones Urine Negative (Negative); Leukocyte Esterase Urine Negative (Negative); Nitrite Urine Negative (Negative); Protein Urine Negative (Negative); Specific Gravity Urine 1.015 (1.000-1.030); Urobilinogen Urine Negative (Negative); pH Urine 6.5 (4.5-7.5)
[2024-04-12] MEDS ORDERED: GLUCOSE 40% GEL 15 GM TUBE PO PRN (22:47)
[2024-04-12] MEDS ORDERED: ACETAMINOPHEN 325 MG TAB PO PRN (22:47)
[2024-04-12] MEDS ORDERED: GLUCAGON FOR INJ 1 MG VIAL SQ PRN (22:47)
[2024-04-12] MEDS ORDERED: NITROGLYCERIN SL 0.4 MG/TAB TAB SL PRN (22:47)
[2024-04-12] MEDS ORDERED: DEXTROSE 50% 50 ML SYRINGE IV PRN (22:47)
[2024-04-12] MEDS ORDERED: CARBOHYDRATES FOR HYPOGLYCEMIA PO PRN (22:47)
[2024-04-12] MEDS ORDERED: GLUCOSE 10 TAB/TUBE PO PRN (22:47)
[2024-04-12] MEDS ORDERED: POLYETHYLENE (MIRALAX) 17 GM PACK PO PRN (22:47)
[2024-04-12] MEDS: SODIUM CHLORIDE 0.9% 1,000 ML IV SCH (23:07)
--- NOTE | 2024-04-12 23:23 | CT Scan Report ---
Exam(s): CT HEAD Without Contrast EXAM: CT Head Without Intravenous Contrast CLINICAL HISTORY: Reason for exam: confusion, a fib. TECHNIQUE: Axial computed tomography images of the head/brain without intravenous contrast. CTDI is 34.93 mGy and DLP is 624.41 mGy-cm. Automated exposure control was utilized for the study. A dose lowering technique was utilized adhering to the principles of ALARA. COMPARISON: No relevant prior studies available. FINDINGS: Brain: Remote ischemic injury of the left thalamus and capsule. No hemorrhage. Mild nonspecific white matter changes. No edema. Ventricles: Unremarkable. No ventriculomegaly. Bones/joints: Unremarkable. No acute fracture. Soft tissues: Unremarkable. Sinuses: Chronic ethmoid and left frontal sinusitis. No acute sinusitis. Mastoid air cells: Unremarkable as visualized. No mastoid effusion. IMPRESSION: No evidence of acute intracranial pathology. Electronically signed by: Nitza Garcia MD 04/12/24 23:23 PM
[2024-04-12] MEDS: INSULIN ASPART PER UNIT CHARGE SC SCH (23:27)
[2024-04-13] MEDS: GADOBUTROL 10ML VIAL IV ONE (01:03)
--- NOTE | 2024-04-13 02:39 | Magnetic Resonance Report ---
Exam(s): MRI HEAD W/WO Contrast IV Amt: 10cc gadavist EXAM: MR Head Without and With Intravenous Contrast CLINICAL HISTORY: Reason for exam: confusion. TECHNIQUE: Magnetic resonance images of the head/brain without and with intravenous contrast in multiple planes. CONTRAST: Patient received 10cc gadavist of IV contrast COMPARISON: Prior head CT from April 12, 2024. FINDINGS: Brain: There is a tiny acute ischemic injury in the left temporal lobe without evidence of hemorrhagic transformation. Moderate nonspecific white matter changes. The flow voids at the base of the brain are intact. No mass. There are several tiny punctate foci of susceptibility artifact within the cerebellum, donna and temporal lobes which may represent remote hypertensive microhemorrhages. Ventricles: Unremarkable. No ventriculomegaly. Bones/joints: Unremarkable. No acute fracture. Sinuses: Chronic pansinusitis. No acute sinusitis. Mastoid air cells: Unremarkable as visualized. No mastoid effusion. Orbits: Bilateral lens replacements. IMPRESSION: There is a tiny acute ischemic a noted within the left temporal lobe without evidence of hemorrhagic transformation. Communications: Verify Receipt Electronically signed by: Nitza Garcia MD 04/13/24 02:38 AM
[2024-04-13] MEDS ORDERED: PHARMACIST DISCHARGE MED REC CONSULT PRN (03:04)
[2024-04-13] MEDS ORDERED: METOPROLOL TARTRATE 1 MG/ML VIAL IV PRN (03:31)
[2024-04-13] MEDS: OPTIRAY 320 125ml IV ONE (03:46)
[2024-04-13] MEDS: ATORVASTATIN 40 MG TAB PO STA (04:30)
--- NOTE | 2024-04-13 04:32 | CT Scan Report ---
Exam(s): CTA HEAD With Contrast IV Amt: 118 ML OPTIRAY 320 EXAM: CT Angiography Head With Intravenous Contrast CLINICAL HISTORY: Reason for exam: cva. TECHNIQUE: Axial computed tomographic angiography images of the head with intravenous contrast. CTDI is 33.21 mGy and DLP is 16.61 mGy-cm. Automated exposure control was utilized for the study. A dose lowering technique was utilized adhering to the principles of ALARA. MIP reconstructed images were created and reviewed. CONTRAST: Patient received 118 ML OPTIRAY 320 of IV contrast COMPARISON: No relevant prior studies available. FINDINGS: The dural venous sinuses are patent. Right internal carotid artery: No acute findings. Intracranial segment is patent with no significant stenosis. No aneurysm. Right anterior cerebral artery: Unremarkable. No occlusion or significant stenosis. No aneurysm. Right middle cerebral artery: Unremarkable. No occlusion or significant stenosis. No aneurysm. Right posterior cerebral artery: Unremarkable. No occlusion or significant stenosis. No aneurysm. Right vertebral artery: Unremarkable as visualized. Left internal carotid artery: No acute findings. Intracranial segment is patent with no significant stenosis. No aneurysm. Left anterior cerebral artery: Unremarkable. No occlusion or significant stenosis. No aneurysm. Left middle cerebral artery: Unremarkable. No occlusion or significant stenosis. No aneurysm. Left posterior cerebral artery: Unremarkable. No occlusion or significant stenosis. No aneurysm. Left vertebral artery: Unremarkable as visualized. Basilar artery: Unremarkable. No occlusion or significant stenosis. No aneurysm. IMPRESSION: Negative CT angiogram of the head. Electronically signed by: Nitza Garcia MD 04/13/24 04:31 AM
--- NOTE | 2024-04-13 04:35 | CT Scan Report ---
Exam(s): CTA NECK With Contrast EXAM: CT Angiography Neck With Intravenous Contrast CLINICAL HISTORY: Reason for exam: cva. TECHNIQUE: Routine carotid CT angiography protocol was performed with intravenous contrast. NASCET criteria using the distal ICAs for comparison were used for evaluation of stenoses. CTDI is 15.22 mGy and DLP is 624.62 mGy-cm. Automated exposure control was utilized for the study. A dose lowering technique was utilized adhering to the principles of ALARA. MIP reconstructed images were created and reviewed. CONTRAST: Contrast must be dictated COMPARISON: None. FINDINGS: VASCULATURE: Right common carotid artery: Unremarkable. No occlusion or significant stenosis. No dissection. Right internal carotid artery: Unremarkable. Extracranial segment is patent with no occlusion or significant stenosis. No dissection. Right external carotid artery: Unremarkable. No occlusion. Right vertebral artery: Unremarkable. No occlusion or significant stenosis. No dissection. Left common carotid artery: Unremarkable. No occlusion or significant stenosis. No dissection. Left internal carotid artery: There is a focal 80% stenosis of the proximal left ICA. No dissection. Left external carotid artery: Unremarkable. No occlusion. Left vertebral artery: Unremarkable. No occlusion or significant stenosis. No dissection. NECK: Bones/joints: Periapical lucency about tooth #30 concerning for periapical abscess. Recommend dental consult. No acute fracture. Soft tissues: Right thyroid nodule. Lung apices: Bronchitis, which may be of infectious or inflammatory etiologies. CAROTID STENOSIS REFERENCE USING NASCET CRITERIA: % ICA stenosis = (1 - narrowest ICA diameter/diameter of distal cervical ICA) x 100. Mild - <50% stenosis. Moderate - 50-69% stenosis. Severe - 70-94% stenosis. Near occlusion - 95-99% stenosis. Occluded - 100% stenosis. 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 Electronically signed by: Nitza Garcia MD 04/13/24 04:34 AM
--- NOTE | 2024-04-13 05:12 | History & Physical Report ---
Date of Service April 12, 2024 Assessment & Plan (1) Confusion: Plan: 68-year-old male with past medical history significant for type 2 diabetes, hyperlipidemia, obstructive sleep apnea on CPAP, hypertension, CAD s/p stent, obesity, prostate cancer, BPH, depression, comes with confusion. As per patient having on and off confusion for the last 3 weeks. He does not know where he is and does not know what he is doing during those times. It was on and off. Yesterday they were in [place] visiting family when patient was more confused. Could not put on his clothes. He could not eat. drove to [email or web address] today. As per today patient's confusion today improved. Was able to eat by himself. Currently alert and oriented x 3. Denies any headache. No dizziness. Vision is okay. No runny nose or sore throat. No cough. No body aches. No chest pain or shortness of breath. No nausea. No abdominal pain. Normal bowel and bladder movements. Resting comfortably and hemodynamically stable.Patient found to have new onset A-fib and also COVID positive.There is a plan for MRI of the brain for his on and off confusion. Confusion Going on for 3 weeks on and off Yesterday was worse Today improved CT head is okay Brain MRIs done which showing acute tiny infarct in the left temporal lobe without evidence of hemorrhagic transformation. Patient was found to have new onset A-fib Patient is on aspirin. Started on statin Discussed with [facility] and was recommend to start on Eliquis for his A-fib as stroke is small in size and no hemorrhagic conversion and his blood pressure is okay currently. Also recommended EEG as patient is having on and off confusion Stroke workup with CTA head and neck showed 80% stenosis of the proximal left ICA Neurochecks Telemetry Will follow echo Follow lipid profile, HbA1c levels Speech evaluation PT OT evaluation Vascular surgery consult Neuroconsult in a.m. New A-fib Rates under control Lopressor as needed Started on Eliquis as mentioned above Serial cardiac enzymes Echo Telemetry Cardiac consult in a.m. for further recommendations COVID-positive Asymptomatic COVID precautions Close monitor Elevated troponin Will follow serial cardiac enzymes and echo Cardiology consulted Type 2 diabetes Hold home p.o. medications Sliding scale Will follow A1c levels and blood sugars Obstructive sleep apnea CPAP nightly Hypertension Continue clonidine Hold lisinopril hydrochlorothiazide for permissive hypertension Close monitor Depression On venlafaxine and Abilify CAD s/p stent On aspirin Starting on statin Prostate cancer Low-grade on active surveillance since 2019 Following with urology DVT prophylaxis Eliquis Disposition Telemetry Full code. History of Present Illness Chief Complaint: Confusion Primary Care Provider: Lenard King MD 68-year-old male with past medical history significant for type 2 diabetes, hyperlipidemia, obstructive sleep apnea on CPAP, hypertension, CAD s/p stent, obesity, prostate cancer, BPH, depression, comes with confusion. As per patient having on and off confusion for the last 3 weeks. He does not know where he is and does not know what he is doing during those times. It was on and off. Yesterday they were in [place] visiting family when patient was more confused. Could not put on his clothes. He could not eat. drove to [place] today. As per today patient's confusion today improved. Was able to eat by himself. Currently alert and oriented x 3. Denies any headache. No dizziness. Vision is okay. No runny nose or sore throat. No cough. No body aches. No chest pain or shortness of breath. No nausea. No abdominal pain. Normal bowel and bladder movements. Resting comfortably and hemodynamically stable.Patient found to have new onset A-fib and also COVID positive.There is a plan for MRI of the brain for his on and off confusion. Past medical history. As mentioned above Past surgical history. Colonoscopy with biopsy. Neck spine fusion surgery. Bilateral cataracts. Cholecystectomy. Social history. . No smoking. No alcohol use. No drug use. Family history. Mother had hypertension vascular disease. Father had glaucoma. Sister had breast cancer and skin cancer. Allergies Allergy/AdvReac Type Severity Reaction Status Date / Time lisinopril AdvReac Intermediate dry cough Verified 04/12/24 21:29 Home Medications Medication Instructions Recorded Confirmed Type aripiprazole 2 mg tablet (Abilify) 2 mg PO DAILY 04/12/24 04/12/24 History aspirin 81 mg tablet,delayed 81 mg PO DAILY 04/12/24 04/12/24 History release clonidine HCl 0.1 mg tablet 0.1 mg PO [facility] 04/12/24 04/12/24 History coQ10 (ubiquinol) 100 mg capsule 0 mg PO DAILY 04/12/24 04/12/24 History garlic 500 mg capsule 500 mg PO DAILY 04/12/24 04/12/24 History glipizide 5 mg tablet, extended 5 mg PO QAM 04/12/24 04/12/24 History release 24 hr hydroxyzine HCl 50 mg tablet 50 mg PO HS 04/12/24 04/12/24 History losartan 100 1 tab PO QAM 04/12/24 04/12/24 History mg-hydrochlorothiazide 25 mg tablet metformin 1,000 mg tablet 1,000 mg PO BIDWMEAL 04/12/24 04/12/24 History omega-3 240 cz-gsq-mdt-cod liver 1 cap PO DAILY 04/12/24 04/12/24 History oil 1,000 mg-vit A-vit D3 capsule (cod liver oil) omega-3 fatty acids 1,000 mg 1,000 mg PO DAILY 04/12/24 04/12/24 History capsule venlafaxine 37.5 mg tablet 37.5 mg PO [facility] 04/12/24 04/12/24 History Past Med/Surg History Problem List (Updated 04/13/24 @ 01:12 by Jamari Mackey MD) COVID (Acute) Elevated troponin (Acute) New onset a-fib (Acute) Confusion (Acute) Mild cognitive impairment Abnormal colonoscopy LISBETH on CPAP Diabetes (Chronic) Hypertension (Chronic) Anxiety (Acute) MDD (major depressive disorder) (Acute 10/10/14) Mood disorder (Acute) UTI (urinary tract infection) (Acute) Medical History Fusion of spine CERV, below c2 Acute pancreatitis Family History Other Cancer Glaucoma Hypertension Vascular disease Social History Smoking Status: Never smoker Hx Alcohol Use: No Hx Substance Use: No Preferred Language: Turkish Communication Ability: Effective Streetcar St[employer] Required: No Beliefs That Will Affect Care: None Current Living Situation: Spouse Other Information That Helps Us Care for You: No Feels Safe at Home: Yes Safety Concerns: Feels Safe At This Time Assistive Devices: CPAP Review of Systems Review of Systems: All systems reviewed & are unremarkable except as noted in HPI & below Physical Exam Physical Exam: General-Not in distress Head- atraumatic Eyes- PERRL,. ENT- oropharynx clear Neck- supple, no JVD. Lungs- clear to auscultation no wheezing or crackles Heart- regular rate and rhythm; no murmur, no gallop. Abdomen- normal bowel sounds, soft, nontender, no distension Extremities- no pretibial edema, no erythema seen Neuro- alert, oriented x 3; PERRL, no facial palsy; no dysarthria; motor 5/5 bilaterally; no pronator drift, normal co ordination of movements , sensations intact. Skin- warm & dry Results & Data Results & Data Vital Signs (Past 12 Hours) Vital Signs Temp Pulse Pulse Resp BP BP Pulse Ox 04/12/24 20:00 93 H 18 145/88 H 94 04/12/24 18:31 133/90 04/12/24 18:30 114 H 24 93 04/12/24 18:28 110 H 94 04/12/24 18:23 93 04/12/24 18:19 126 H 04/12/24 18:18 107 H 23 93 04/12/24 17:57 36.3 C L 84 14 133/91 95 O2 Del Method 04/12/24 20:00 Room Air 04/12/24 18:31 04/12/24 18:30 04/12/24 18:28 Room Air 04/12/24 18:23 Room Air 04/12/24 18:19 04/12/24 18:18 04/12/24 17:57 Room Air Diagnostic Findings Laboratory Results WBC 8.65 K/ul (4.8-10.8) 04/12/24 18:16 RBC 4.88 M/uL (4.70-6.10) 04/12/24 18:16 Hgb 15.6 g/dl (14.0-18.0) 04/12/24 18:16 Hct 45.9 % (42.0-52.0) 04/12/24 18:16 MCV 94.1 fL (80.0-100.0) 04/12/24 18:16 MCH 32.0 pg (25.0-34.0) 04/12/24 18:16 MCHC 34.0 g/dL (32.0-36.0) 04/12/24 18:16 RDW Std Deviation 44.3 fL (36.4-46.3) 04/12/24 18:16 RDW Coeff of Laura 12.9 % (11.5-14.5) 04/12/24 18:16 Plt Count 233 K/uL (130-400) 04/12/24 18:16 MPV 10.6 fL (9.4-12.4) 04/12/24 18:16 Immature Gran % (Auto) 0.3 % 04/12/24 18:16 Neut % (Auto) 44.4 % 04/12/24 18:16 Lymph % (Auto) 38.4 % 04/12/24 18:16 [place] % (Auto) 15.4 % 04/12/24 18:16 Eos % (Auto) 0.8 % 04/12/24 18:16 Baso % (Auto) 0.7 % 04/12/24 18:16 Neut # (Auto) 3.84 K/uL (1.40-6.50) 04/12/24 18:16 Lymph # (Auto) 3.32 K/uL (1.20-3.40) 04/12/24 18:16 [place] # (Auto) 1.33 K/uL (0.11-0.59) H 04/12/24 18:16 Eos # (Auto) 0.07 K/uL (0.00-0.50) 04/12/24 18:16 Baso # (Auto) 0.06 K/uL (0.00-0.20) 04/12/24 18:16 Immature Gran # (Auto) 0.03 K/uL (0.01-0.20) 04/12/24 18:16 PT 10.9 Seconds (9.0-12.0) 04/12/24 18:16 INR 1.0 (0.9-1.1) 04/12/24 18:16 APTT 27 Seconds (21-31) 04/12/24 18:16 PTT Ratio 1.0 04/12/24 18:16 Sodium 137 mmol/L (136-145) 04/12/24 18:16 Potassium 3.4 mmol/L (3.5-5.1) L 04/12/24 18:16 Chloride 97 mmol/L (98-107) L 04/12/24 18:16 Carbon Dioxide 30 mmol/L (21-32) 04/12/24 18:16 Anion Gap 10 (3-11) 04/12/24 18:16 BUN 24 mg/dl (6-23) H 04/12/24 18:16 Creatinine 1.10 mg/dl (0.6-1.4) 04/12/24 18:16 Est Cr Clr Drug Dosing 84.2 ml/min 04/12/24 18:16 Est GFR ( Amer) 79.0 ml/min 04/12/24 18:16 Est GFR (Non-Af Amer) 68.1 ml/min 04/12/24 18:16 BUN/Creatinine Ratio 21.8 (10-20) H 04/12/24 18:16 Glucose 104 mg/dl (70-99(Fasting)) H 04/12/24 18:16 POC Glucose 96 mg/dl (70-99) 04/12/24 23:06 Calcium 9.1 mg/dl (8.6-10.3) 04/12/24 18:16 Magnesium 1.9 mg/dl (1.7-2.4) 04/12/24 18:16 Total Bilirubin 0.7 mg/dl (0.2-1.0) 04/12/24 18:16 AST 39 U/L (13-39) 04/12/24 18:16 ALT 39 U/L (7-52) 04/12/24 18:16 Alkaline Phosphatase 47 U/L (34-104) 04/12/24 18:16 Troponin I High Sens 83.4 pg/ml (0-20) H* 04/12/24 18:16 B-Natriuretic Peptide 133 pg/ml (0-100) H 04/12/24 18:49 Total Protein 7.7 gm/dl (6.0-8.3) 04/12/24 18:16 Albumin 4.3 gm/dl (3.4-5.0) 04/12/24 18:16 Globulin 3.4 gm/dl (2.5-4.0) 04/12/24 18:16 Albumin/Globulin Ratio 1.3 (0.9-2) 04/12/24 18:16 Urine Color Yellow 04/12/24 22:22 Urine Appearance Clear (Clear) 04/12/24 22:22 Urine pH 6.5 (4.5-7.5) 04/12/24 22:22 Ur Specific [place] 1.015 (1.000-1.030) 04/12/24 22:22 Urine Protein Negative (Negative) 04/12/24 22:22 Urine Glucose (UA) Negative (Negative) 04/12/24 22:22 Urine Ketones Negative (Negative) 04/12/24 22:22 Urine Blood Negative (Negative) 04/12/24 22:22 Urine Nitrite Negative (Negative) 04/12/24 22:22 Urine Bilirubin Negative (Negative) 04/12/24 22:22 Urine Urobilinogen Negative (Negative) 04/12/24 22:22 Ur Leukocyte Esterase Negative (Negative) 04/12/24 22:22 SARS-CoV-2 (PCR) POSITIVE (Negative) A 04/12/24 18:40 Impressions Chest X-Ray 04/12/24 18:28 XR chest 1V portable HISTORY: Chest pain, nonspecific COMPARISON: None. FINDINGS: The lungs are clear. Cardiac silhouette is normal in size. No pleural effusions. No pneumothorax. IMPRESSION: No acute process. ACT 112: Negative or not required by law. Electronically signed by: Yaniv Pate M.D. 04/12/2024 7:[address] 04/12/24 18:39 Exam(s): CT HEAD Without Contrast EXAM: CT Head Without Intravenous Contrast CLINICAL HISTORY: Reason for exam: confusion, a fib. TECHNIQUE: Axial computed tomography images of the head/brain without intravenous contrast. CTDI is 34.93 mGy and DLP is 624.41 mGy-cm. Automated exposure control was utilized for the study. A dose lowering technique was utilized adhering to the principles of ALARA. COMPARISON: No relevant prior studies available. FINDINGS: Brain: Remote ischemic injury of the left thalamus and capsule. No hemorrhage. Mild nonspecific white matter changes. No edema. Ventricles: Unremarkable. No ventriculomegaly. Bones/joints: Unremarkable. No acute fracture. Soft tissues: Unremarkable. Sinuses: Chronic ethmoid and left frontal sinusitis. No acute sinusitis. Mastoid air cells: Unremarkable as visualized. No mastoid effusion. IMPRESSION: No evidence of acute intracranial pathology. Electronically signed by: Nitza Garcia MD 04/12/24 23:23 PM Brain MRI 04/13/24 00:17 CR Exam(s): MRI HEAD W/WO Contrast IV Amt: 10cc gadavist EXAM: MR Head Without and With Intravenous Contrast CLINICAL HISTORY: Reason for exam: confusion. TECHNIQUE: Magnetic resonance images of the head/brain without and with intravenous contrast in multiple planes. CONTRAST: Patient received 10cc gadavist of IV contrast COMPARISON: Prior head CT from April 12, 2024. FINDINGS: Brain: There is a tiny acute ischemic injury in the left temporal lobe without evidence of hemorrhagic transformation. Moderate nonspecific white matter changes. The flow voids at the base of the brain are intact. No mass. There are several tiny punctate foci of susceptibility artifact within the cerebellum, donna and temporal lobes which may represent remote hypertensive microhemorrhages. Ventricles: Unremarkable. No ventriculomegaly. Bones/joints: Unremarkable. No acute fracture. Sinuses: Chronic pansinusitis. No acute sinusitis. Mastoid air cells: Unremarkable as visualized. No mastoid effusion. Orbits: Bilateral lens replacements. IMPRESSION: There is a tiny acute ischemic a noted within the left temporal lobe without evidence of hemorrhagic transformation. Communications: Verify Receipt Electronically signed by: Nitza Garcia MD 04/13/24 02:38 AM Head CTA 04/13/24 03:05 Exam(s): CTA HEAD With Contrast IV Amt: 118 ML OPTIRAY 320 EXAM: CT Angiography Head With Intravenous Contrast CLINICAL HISTORY: Reason for exam: cva. TECHNIQUE: Axial computed tomographic angiography images of the head with intravenous contrast. CTDI is 33.21 mGy and DLP is 16.61 mGy-cm. Automated exposure control was utilized for the study. A dose lowering technique was utilized adhering to the principles of ALARA. MIP reconstructed images were created and reviewed. CONTRAST: Patient received 118 ML OPTIRAY 320 of IV contrast COMPARISON: No relevant prior studies available. FINDINGS: The dural venous sinuses are patent. Right internal carotid artery: No acute findings. Intracranial segment is patent with no significant stenosis. No aneurysm. Right anterior cerebral artery: Unremarkable. No occlusion or significant stenosis. No aneurysm. Right middle cerebral artery: Unremarkable. No occlusion or significant stenosis. No aneurysm. Right posterior cerebral artery: Unremarkable. No occlusion or significant stenosis. No aneurysm. Right vertebral artery: Unremarkable as visualized. Left internal carotid artery: No acute findings. Intracranial segment is patent with no significant stenosis. No aneurysm. Left anterior cerebral artery: Unremarkable. No occlusion or significant stenosis. No aneurysm. Left middle cerebral artery: Unremarkable. No occlusion or significant stenosis. No aneurysm. Left posterior cerebral artery: Unremarkable. No occlusion or significant stenosis. No aneurysm. Left vertebral artery: Unremarkable as visualized. Basilar artery: Unremarkable. No occlusion or significant stenosis. No aneurysm. IMPRESSION: Negative CT angiogram of the head. Electronically signed by: Nitza Garcia MD 04/13/24 04:31 AM Neck CTA 04/13/24 03:05 Exam(s): CTA NECK With Contrast EXAM: CT Angiography Neck With Intravenous Contrast CLINICAL HISTORY: Reason for exam: cva. TECHNIQUE: Routine carotid CT angiography protocol was performed with intravenous contrast. NASCET criteria using the distal ICAs for comparison were used for evaluation of stenoses. CTDI is 15.22 mGy and DLP is 624.62 mGy-cm. Automated exposure control was utilized for the study. A dose lowering technique was utilized adhering to the principles of ALARA. MIP reconstructed images were created and reviewed. CONTRAST: Contrast must be dictated COMPARISON: None. FINDINGS: VASCULATURE: Right common carotid artery: Unremarkable. No occlusion or significant stenosis. No dissection. Right internal carotid artery: Unremarkable. Extracranial segment is patent with no occlusion or significant stenosis. No dissection. Right external carotid artery: Unremarkable. No occlusion. Right vertebral artery: Unremarkable. No occlusion or significant stenosis. No dissection. Left common carotid artery: Unremarkable. No occlusion or significant stenosis. No dissection. Left internal carotid artery: There is a focal 80% stenosis of the proximal left ICA. No dissection. Left external carotid artery: Unremarkable. No occlusion. Left vertebral artery: Unremarkable. No occlusion or significant stenosis. No dissection. NECK: Bones/joints: Periapical lucency about tooth #30 concerning for periapical abscess. Recommend dental consult. No acute fracture. Soft tissues: Right thyroid nodule. Lung apices: Bronchitis, which may be of infectious or inflammatory etiologies. CAROTID STENOSIS REFERENCE USING NASCET CRITERIA: % ICA stenosis = (1 - narrowest ICA diameter/diameter of distal cervical ICA) x 100. Mild - <50% stenosis. Moderate - 50-69% stenosis. Severe - 70-94% stenosis. Near occlusion - 95-99% stenosis. Occluded - 100% stenosis. 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 Electronically signed by: Nitza Garcia MD 04/13/24 04:34 AM ECG Additional Comments: ECG A-fib with rapid ventricular response rate of 112. T wave inversions lateral leads. Code Status & VTE Plan VTE Prophylaxis Plan VTE Prophylaxis will be ordered: Yes
[2024-04-13 06:10] LABS: Basophils # (auto) 0.07 K/uL (0.00-0.20); Eosinophils # (auto) 0.05 K/uL (0.00-0.50); Eosinophils % (auto) 0.7 %; Hematocrit (blood only) 42.5 % (42.0-52.0); Hemoglobin 14.7 g/dl (14.0-18.0); Immature Granulocytes # (auto) 0.02 K/uL (0.01-0.20); Immature Granulocytes % (auto) 0.3 %; Lymphocytes # (auto) 2.71 K/uL (1.20-3.40); Lymphocytes % (auto) 38.1 %; Mean Corpuscular Hemoglobin 32.2 pg (25.0-34.0); Mean Corpuscular Hgb Conc 34.6 g/dL (32.0-36.0); Mean Corpuscular Volume 93.2 fL (80.0-100.0); Mean Platelet Volume 10.5 fL (9.4-12.4); Monocytes # (auto) 0.98 K/uL (0.11-0.59); Monocytes % (auto) 13.8 %; Neutrophils # (auto) 3.28 K/uL (1.40-6.50); Neutrophils % (auto) 46.1 %; Platelet Count 197 K/uL (130-400); RDW Coefficient of Variation 12.9 % (11.5-14.5); RDW Standard Deviation 44.1 fL (36.4-46.3); Red Blood Count 4.56 M/uL (4.70-6.10); White Blood Count 7.11 K/ul (4.8-10.8)
[2024-04-13 06:25] LABS: BUN Creatinine Ratio 23.3 (10-20); Calcium 8.4 mg/dl (8.6-10.3); Chol HDL Ratio 5.3 (0-5); Creatinine Clr Calc Pharmacy 89.5 ml/min; Est GFR (African American) 85.5 ml/min; Est GFR (Non-African American) 73.8 ml/min; Potassium 3.4 mmol/L (3.5-5.1)
[2024-04-13 06:38] LABS: Troponin I High Sensitivity 66.6 pg/ml (0-20)
[2024-04-13 07:13] LABS: Estimated Average Glucose 137 mg/dl; Hemoglobin A1C 6.4 % (4.5-5.6)
--- NOTE | 2024-04-13 07:20 | Electrocardiogram Report ---
Test Reason : Blood Pressure : / mmHG Vent. Rate : 112 BPM Atrial Rate : 000 BPM P-R Int : 000 ms QRS Dur : 088 ms QT Int : 288 ms P-R-T Axes : 000 006 -56 degrees QTc Int : 393 ms Atrial fibrillation with rapid ventricular response Nonspecific ST abnormality Abnormal ECG When compared with ECG of 04-OCT-2014 08:55, Atrial fibrillation has replaced Sinus rhythm T wave inversion now evident in Lateral leads Confirmed by Chase Dyer ([id number]) on 04/13/2024 7:19:54 AM Referred By: REFERRED SELF Confirmed By:Prasanna Dyer
--- NOTE | 2024-04-13 07:24 | Electrocardiogram Report ---
Test Reason : Blood Pressure : / mmHG Vent. Rate : 078 BPM Atrial Rate : 040 BPM P-R Int : 000 ms QRS Dur : 096 ms QT Int : 382 ms P-R-T Axes : 000 013 -61 degrees QTc Int : 435 ms Atrial fibrillation Cannot rule out Inferior infarct (cited on or before 04-OCT-2014) Nonspecific ST abnormality Abnormal ECG When compared with ECG of 12-APR-2024 18:08, (unconfirmed) Nonspecific T wave abnormality, worse in Lateral leads Confirmed by Chase Dyer ([id number]) on 04/13/2024 7:23:25 AM Referred By: REFERRED SELF Confirmed By:Prasanna Dyer
[2024-04-13] MEDS ORDERED: LOSARTAN/HCTZ 50/12.5MG TAB PO SCH (09:00)
[2024-04-13] MEDS: POTASSIUM CHLORIDE / WTR 10 MEQ/100 ML PLCT IV SCH (09:17)
[2024-04-13] MEDS: APIXABAN 5 MG TABLET PO SCH (09:18)
[2024-04-13] MEDS: ASPIRIN 81 MG ECTAB PO SCH (09:19)
[2024-04-13] MEDS: ARIPIprazole 1 MG/ML ORAL SOLN 150 ML BTL PO SCH (09:19)
[2024-04-13] MEDS: cloNIDine HCL 0.1 MG TAB PO SCH (09:19)
[2024-04-13] MEDS: VENLAFAXINE HCL 37.5 MG TAB PO SCH (09:19)
[2024-04-13] MEDS: ATORVASTATIN 40 MG TAB PO SCH (09:19)
--- NOTE | 2024-04-13 09:32 | Electroencephalogram ---
EEG Procedure Note Date of Service April 13, 2024 Start / End Times Start Time: 848 End Time: [address] Valladares History 68-year-old with intermittent confusion/encephalopathy Home Medication List Medication Instructions Recorded Confirmed Type aripiprazole 2 mg tablet (Abilify) 2 mg PO DAILY 04/12/24 04/12/24 History aspirin 81 mg tablet,delayed 81 mg PO DAILY 04/12/24 04/12/24 History release clonidine HCl 0.1 mg tablet 0.1 mg PO [facility] 04/12/24 04/12/24 History coQ10 (ubiquinol) 100 mg capsule 0 mg PO DAILY 04/12/24 04/12/24 History garlic 500 mg capsule 500 mg PO DAILY 04/12/24 04/12/24 History glipizide 5 mg tablet, extended 5 mg PO QAM 04/12/24 04/12/24 History release 24 hr hydroxyzine HCl 50 mg tablet 50 mg PO 04/12/24 04/12/24 History losartan 100 1 tab PO QA 04/12/24 04/12/24 History mg-hydrochlorothiazide 25 mg tablet metformin 1,000 mg tablet 1,000 mg PO BIDWMEAL 04/12/24 04/12/24 History omega-3 240 ah-cbo-wtt-cod liver 1 cap PO DAILY 04/12/24 04/12/24 History oil 1,000 mg-vit A-vit D3 capsule (cod liver oil) omega-3 fatty acids 1,000 mg 1,000 mg PO DAILY 04/12/24 04/12/24 History capsule venlafaxine 37.5 mg tablet 37.5 mg PO [facility] 04/12/24 04/12/24 History Inpatient Medication List Apixaban (Apixaban 5 Mg Tablet) 5 mg PO BID [facility] Stop: 05/13/24 03:44 Last Admin: 04/13/24 09:18 Dose: 5 mg Documented By: MS Aripiprazole (Aripiprazole 1 Mg/Ml Oral Soln 150 Ml Btl) 2 mg PO DAILY [facility] Stop: 05/13/24 08:59 Last Admin: 04/13/24 09:19 Dose: 2 mg Documented By: MS Aspirin (Aspirin 81 Mg Ectab) 81 mg PO DAILY [facility] Stop: 05/13/24 08:59 Last Admin: 04/13/24 09:19 Dose: 81 mg Documented By: MS Atorvastatin Calcium (Atorvastatin 40 Mg Tab) 40 mg PO QAM [facility] Stop: 05/13/24 08:59 Last Admin: 04/13/24 09:19 Dose: 40 mg Documented By: MS Clonidine HCl (Clonidine Hcl 0.1 Mg Tab) 0.1 mg PO AMHS [facility] Stop: 05/13/24 08:59 Last Admin: 04/13/24 09:19 Dose: 0.1 mg Documented By: Sodium Chloride (Nss) 1,000 mls @ 80 mls/hr IV .[id number] [facility] Stop: 04/13/24 11:16 Last Admin: 04/12/24 23:07 Dose: 80 mls/hr Documented By: SHYANNE Potassium Chloride (K Navdeep / Wtr) 10 meq in 100 mls @ 100 mls/hr IV Q1H [facility] Stop: 04/13/24 12:14 Last Admin: 04/13/24 09:17 Dose: 100 mls/hr Documented By: Insulin Aspart (Insulin Aspart Per Unit Charge) 0 units SC Q6 [facility] Stop: 05/13/24 00:00 Last Admin: 04/13/24 06:12 Dose: Not Given Documented By: Admin: 04/12/24 23:27 Dose: Not Given Documented By: SHYANNE Venlafaxine HCl (Venlafaxine Hcl 37.5 Mg Tab) 37.5 mg PO AMHS [facility] Stop: 05/13/24 08:59 Last Admin: 04/13/24 09:19 Dose: 37.5 mg Documented By: MS Discontinued Medications Atorvastatin Calcium (Atorvastatin 40 Mg Tab) 40 mg PO NOW STA Stop: 04/13/24 03:01 Last Admin: 04/13/24 04:30 Dose: 40 mg Documented By: SHYANNE Gadobutrol (Gadobutrol 10ml Vial) 10 ml IV ONCE ONE Stop: 04/13/24 01:03 Last Admin: 04/13/24 01:03 Dose: 10 ml Documented By: ARIAN Sodium Chloride (Nss) 500 mls @ 999 mls/hr IV .Q31M ONE Stop: 04/12/24 20:07 Last Infusion: 04/12/24 20:26 Dose: Infused Documented By: Admin: 04/12/24 19:47 Dose: 999 mls/hr Documented By: IDD Ioversol (Optiray 320 125ml) 125 ml IV ONCE ONE Stop: 04/13/24 03:47 Last Admin: 04/13/24 03:46 Dose: 118 ml Documented By: VALDEZ Description This is a 21 electrode EEG with a single channel dedicated to limited EKG. The electrodes were placed in accordance with the International 10-20 system. Interpretation The predominant background activity consists of a fairly well modulated 7 Hz activity, of up to 40 mV in amplitude,seen symmetrically distributed over the posterior head regions bilaterally. This activity attenuates with eye-opening and other alerting procedures. Photic stimulation was performed and elicited no change in the background activity and no abnormal responses were seen. Hyperventilation was not performed. A minimal amount of muscle and movement artifact activity contaminated the recording and did not hinder interpretation to any significant degree. Throughout the waking portion of the recording, no focal abnormalities or potentially epileptogenic discharges were seen. The patient entered the drowsy state with no further activation. Deeper stages of sleep were not recorded. In summary, this EEG was very minimally abnormal during wakefulness as noted by very minimal generalized slowing of background activities. Drowsiness produced no further abnormalities. No focal abnormalities or potentially epileptogenic discharges were seen. Clinical Correlation The very minimal slowing of the background activity might indicate a very minimal encephalopathy, but this type of abnormality may be seen in someone with no obvious neurologic or mental status deficit. Clinical correlation is required. The absence of potentially epileptogenic activity does not exclude a seizure disorder, since interictally, EEGs can be normal. Again, clinical correlation is required. [facility] EEG Procedure Codes Indication for Procedure (1) Acute encephalopathy: Neurology Neurology: 80215 EEG include record awake & drowsy
--- NOTE | 2024-04-13 10:19 | Neurology Consultation ---
Date of Consultation April 13, 2024 Assessment & Plan (1) Acute CVA (cerebrovascular accident): (2) Acute encephalopathy: (3) New onset a-fib: (4) Carotid stenosis, left: (5) Chronic cerebral ischemia: Plan This patient has 2 very small acute strokes in the left middle cerebral artery territory the largest being in the left temporal lobe. He has a relatively acute versus subacute course of confusion, intermittent memory issues and there seems to be some fluctuation in his abilities. It is progressive being much worse over the last few days to a week, but has been going on perhaps 6 weeks or so. He has no focal findings on neurologic examination and he has no meningeal signs. There is no signs of infection. In the emergency room he was diagnosed with atrial fibrillation (apparently new onset) which put him at risk for embolic stroke. He also has a history of hypertension and diabetes which puts him at risk for ischemic stroke. I note that he has small vessel ischemic disease of the mild to moderate nature on MRI. The patient has an 80% stenosis of the left internal carotid artery. This could be a source of emboli as well. The etiology of his acute encephalopathy/confusion may be secondary to his embolic strokes new cardiac dysrhythmia. EEG showed some very mild slowing in general only. Recommendations: 1. Agree with Eliquis 5 mg twice daily 2. Agree with 81 mg aspirin tablet daily 3. Control blood pressure as you are doing, aiming for a mean arterial pressure of approximately 95 4. Control glucose as you are doing aiming to lower the hemoglobin A1c to closer to 6.0 5. Lipid profile is largely unremarkable he is not a high dose statin candidate. Low to medium dose statin dose, is reasonable 6. Physical, occupational, speech therapy consult increasing activity as able. 7. Consider lumbar puncture (under fluoroscopy) given his relatively new onset course. 8. Consider Lyme antibody titers, B12, ESR, and TSH Overall, I spent a total of 90 minutes with this case including review of records, review of CT and MRI films, direct evaluation of the patient, report generation, and discussion of the case with the patient and RN at bedside, patient's via telephone, Dr. Rio rosenberg, and Dr. Harrell, including differential diagnosis and treatment options. History of Present Illness Reason for Consultation: Patient is a 68-year-old, who I was asked to see at the request of Dr. Valladares, for neurologic consultation regarding stroke and acute confusion Requesting Physician: Attending Physician: Zakiya Harrell MD History of Present Illness This patient has a longstanding history of hypertension and diabetes. He also has depression and anxiety and has been diagnosed with obstructive sleep apnea, requiring CPAP. The patient has been getting episodes of confusion and memory dysfunction for about [address] Whelan on April 01 and there was a diagnosis of mild cognitive impairment. He ordered an MRI of the brain but this had not been obtained yet. According to history his episodic confusion has been worse over the last month, especially the last weekend. Apparently 2 days ago they were visiting in [place] and he forgot how to get dressed or feed himself. Patient arrived to the emergency room April 12 at 1757, with a blood pressure of 133/91, temperature 36.3, pulse 84 and was discovered to be in atrial fibrillation. O2 saturation was 95% and respiratory rate was 14. He has been in A-fib since admission. Neurologic examination showed no focal findings and his mentation was deemed to be unremarkable in the emergency room. Otherwise, since admission, he has been found to be intermittently "confused". CBC and CHEM profile were largely unremarkable. He was a little bit dehydrated. His troponin and BNP have been elevated. He had a positive COVID blood test. Chest x-ray was unremarkable. CT scan of the head was unremarkable. CT angiography of the head was unremarkable. CT angiography of the neck showed an 80% stenosis in the proximal left internal carotid artery. MRI of the brain showed to tiny left hemispheric strokes in the middle cerebral artery territory distribution largest was in the left temporal lobe. There was mild to moderate old small vessel ischemic disease and minimal atrophy. Gadolinium showed no enhancement. These mini strokes were consistent with emboli. I reviewed the MRI films and discussed the case with Dr. iRo rosenberg. This morning, CBC and CHEM profile were largely unremarkable. Hemoglobin A1c was 6.4, total cholesterol 154, triglycerides 99. An EEG was performed and it showed slight generalized slowing of a very nonspecific nature. There were no focal abnormalities or potentially epileptogenic discharges seen. He has no complaint of pain or headache, weakness, numbness, dizziness, vision issues, swallowing problems, incontinence, or balance problems. The patient's (whom I talked to regarding information) feels that his balance has been poor the last week or so. The patient was given 81 mg aspirin and Eliquis. Allergies Allergy/AdvReac Type Severity Reaction Status Date / Time lisinopril AdvReac Intermediate dry cough Verified 04/12/24 21:29 Home Medications Medication Instructions Recorded Confirmed Type aripiprazole 2 mg tablet (Abilify) 2 mg PO DAILY 04/12/24 04/12/24 History aspirin 81 mg tablet,delayed 81 mg PO DAILY 04/12/24 04/12/24 History release clonidine HCl 0.1 mg tablet 0.1 mg PO AMHS 04/12/24 04/12/24 History coQ10 (ubiquinol) 100 mg capsule 0 mg PO DAILY 04/12/24 04/12/24 History garlic 500 mg capsule 500 mg PO DAILY 04/12/24 04/12/24 History glipizide 5 mg tablet, extended 5 mg PO QAM 04/12/24 04/12/24 History release 24 hr hydroxyzine HCl 50 mg tablet 50 mg PO HS 04/12/24 04/12/24 History losartan 100 1 tab PO QAM 04/12/24 04/12/24 History mg-hydrochlorothiazide 25 mg tablet metformin 1,000 mg tablet 1,000 mg PO BIDWMEAL 04/12/24 04/12/24 History omega-3 240 cd-rwt-qpy-cod liver 1 cap PO DAILY 04/12/24 04/12/24 History oil 1,000 mg-vit A-vit D3 capsule (cod liver oil) omega-3 fatty acids 1,000 mg 1,000 mg PO DAILY 04/12/24 04/12/24 History capsule venlafaxine 37.5 mg tablet 37.5 mg PO AMHS 04/12/24 04/12/24 History Patient History Medical History Fusion of spine CERV, below c2 Acute pancreatitis Family History Mother , in her 80s with "circulatory problems" No problems noted. 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 Feels Safe at Home: Yes Assistive Devices: CPAP Review of Systems Constitutional: no fever, no fatigue and no weakness Eyes: no diplopia, no eye pain and no worsening vision Ear, Nose, Mouth, Throat: no ear pain, no tinnitus, no hearing loss, no dizziness, no snoring, no hoarseness and no dysphagia Respiratory: no cough and no dyspnea Cardiovascular: no chest pain, no palpitations and no lightheadedness Gastrointestinal: no abdominal pain, no nausea and no vomiting Musculoskeletal: no back pain, no neck pain, no radicular pain, no joint pain and no myalgia Integumentary: no rash and no lesions Neurologic: + gait abnormality, + confusion and + me ulysses loss; no localized weakness, no generalized weakness, no tingling, no numbness, no tremor(s), no abnormal movements, no headache(s) and no abnormal speech Psychiatric: + depression and + anxiety; no irritabil ity, no difficulty concentrating, no confusion and no hallucinations Endocrine: no fatigue and no flushing Hematologic / Lymphatic: no easy bleeding and no easy bruising Allergy / Immunological: no urticaria and no problem reported Exam (Neuro) Physical Exam: The patient is right-handed. The patient is awake, alert, and attentive. Speech is normal without any aphasia or dysarthria. Mood is reasonable and affect is appropriate. The patient has significant memory problem and gets confused. He did not have any insight on what is been going on recently with him that brought him into the hospital. He did know his age and of what he did for living before he retired Pupils are 4 mm bilaterally and reactive to light. Extraocular eye muscles are intact without nystagmus. Visual acuity and visual armstrong seem normal grossly to confrontation. There are no deficits to sensation in the face in all 3 distributions of the fifth cranial nerve bilaterally. Corneal reflexes are positive bilaterally. Facial strength and symmetry was normal bilaterally. Hearing seems intact grossly to voice and finger rub bilaterally. Palate moves well without asymm etry. There is normal sternocleidomastoid and trapezius strength bilaterally. Tongue is midline with good strength bilaterally. Neck has a full range of motion without discomfort. There are no cervical bruits bilaterally. There are no cranial or ocular bruits. Heart is without murmur. There is a regular rhythm and rate. Cervical, thoracic, and lumbar spine are nontender to palpation. Gait is narrow based, with good arm swing, turns, and stance. Balance is normal eyes open or closed. With outstretched arms there is no drift. There are no resting, postural, or action tremors. There is no ataxia with finger to nose testing. There is good facility in the hands. No other abnormal involuntary movements are noted. Motor strength is 5/5 diffusely in the arms bilaterally including deltoids, biceps, triceps, brachioradialis, wrist flexors and extensors, precision farming specialist, and intrinsic hand muscles. Motor strength is 5/5 diffusely in the legs bilaterally including hip flexors, quadriceps, hamstrings, gastrocnemius, tibialis anterior, tibialis posterior, and Peroneii muscles bilaterally. Toe extensors are normal and there is good bulk in the extensor digitorum brevis muscles bilaterally. The limbs have good tone without rigidity or spasticity. There is no atrophy noted in the muscles. Muscle bulk is normal, there is no tenderness to palpation, no myotonia to percussion, and no fasciculations seen. Sensory examination is intact to touch and pin throughout all 4 limbs diffusely. Vibratory and position sense testing is normal bilaterally as well. There is normal sensation to temperature. Reflexes are 1/4 in the biceps, triceps, brachioradialis, quadriceps, and Achilles tendons bilaterally. Toes are downgoing with plantar stimulation bilaterally. Peripheral pulses are present and of normal quality distally in all 4 limbs. There is no peripheral edema noted in the limbs. Results & Data Vital Signs (Past 12 Hours) Vital Signs Temp Pulse Pulse Resp BP Pulse Ox O2 Del Method 04/13/24 08:11 36.4 C L 83 18 153/89 H 92 Room Air 04/13/24 07:25 84 04/13/24 02:50 36.8 C 74 18 147/87 H 93 Room Air 04/13/24 00:30 89 04/12/24 22:48 36.6 C 69 18 131/77 95 Room Air PG Care Time/CCT Total # of Minutes Spent Total Time Spent with Patient: Total time spent is greater than 50% in coordination of care (as documented) at patient's floor/unit and/or counseling patient: Coding Level of Care Code 82914 INT INP/OBS CARE 3MIN Diagnoses Acute CVA (cerebrovascular accident) I63.9 Acute encephalopathy G93.40 New onset a-fib I48.91 Carotid stenosis, left I65.22 Chronic cerebral ischemia I67.82 Time Spent (min) 90
[2024-04-13] MEDS ORDERED: ONDANSETRON INJ 2 MG/ML 2 ML VIAL IV PRN (11:54)
--- NOTE | 2024-04-13 13:21 | Hospitalist Progress Note ---
Date of Service April 13, 2024 Assessment & Plan (1) Confusion: Plan: 68-year-old male with past medical history significant for type 2 diabetes, hyperlipidemia, obstructive sleep apnea on CPAP, hypertension, CAD s/p stent, obesity, prostate cancer, BPH, depression, comes with confusion that started 3 weeks ago. Patient found to have new onset A-fib and also COVID positive. Acute CVA, likely embolic Acute encephalopathy New Afib Intermittent confusion over the past 3 weeks, worsened on day of presentation CT head did not show acute abnormalities CTA head and neck showed 80% stenosis of proximal left ICA Brain MRI showed acute tiny infarct in the left temporal lobe without evidence of hemorrhagic transformation. Patient was found to have new onset A-fib Was evaluated by [facility] on admission and was recommend to start on Eliquis for his A-fib as stroke is small in size and no hemorrhagic conversion and his blood pressure is okay currently. Also recommended EEG as patient is having on and off confusion Patient was started on ASA, eliquis, statin Neurology Dr Draper evaluated this morning. He agreed with recommendation. However, he is concerned of possible infectious cause and recommend possible LP I discussed with IR Dr Walker. Patient had gotten eliquis this AM. IR recommends holding eliquis and keeping patient on hep gtt and they will plan LP in about 72hr. Plan to hold hep gtt 4h before LP on Per Neuro, get CSF lyme, AFB, cryptococcus in addition to typical CSF studies. Hold eliquis for now. Start hep gtt this evening. Vascular eval noted. Since patient is on anticoagulant as well, will continue only ASA. Patient is to follow up with Vascular later for mgt of stenosis New A-fib Rate controlled Elevated trop likely demand due to Afib/CVA Anticoagulation as above F/u Echo Card eval and recs noted COVID-positive Asymptomatic COVID precautions Close monitor Type 2 diabetes Hold home p.o. medications Sliding scale A1c levels 6.4 Obstructive sleep apnea CPAP nightly Hypertension Continue clonidine Holding lisinopril hydrochlorothiazide for permissive hypertension Close monitor Depression On venlafaxine and Abilify CAD s/p stent On aspirin Started on atorvastatin Prostate cancer Low-grade on active surveillance since 2019 Following with urology DVT prophylaxis Hep gtt Disposition Telemetry Full code. I spent a total of 55 minutes coordinating, documenting and providing care for this patient excluding time spent in performance of separately billed services Admission and Anticipated Discharge Date Admission Date: April 12, 2024 Subjective Patient seen and examined at bedside Reports dry cough Denied chest pain, SOB AOx3. Reports occasional confusion reports sporadic confusion started Denied any other complaints Physical Exam Constitutional: + well hydrated; no acute distress Eyes: PERRL, conjunctivae normal, anicteric sclerae ENMT: external ear and nose normal, oropharynx normal Respiratory: normal respiratory effort, lungs clear to auscultation Cardiovascular: Rate/Rhythm: + irregularly irregular S1 S2 Gastrointestinal (Abdomen): normal bowel sounds, soft, nontender, no hepatosplenomegaly Musculoskeletal: No pedal edema Neurologic: PERRL, EOMI, accommodation nl, no face palsy, no dysarthria Power is normal/equal in all extremities [facility]iatric: [facility] Results & Data Results & Data Vital Signs (Past 12 Hours) Vital Signs Temp Pulse Pulse Resp BP Pulse Ox O2 Del Method 04/13/24 10:36 36.4 C L 81 18 148/108 H 95 Room Air 04/13/24 08:11 36.4 C L 83 18 153/89 H 92 Room Air 04/13/24 07:25 84 04/13/24 02:50 36.8 C 74 18 147/87 H 93 Room Air Laboratory Results Abnormal lab results 04/12/24 04/12/24 04/12/24 Range/Units 18:16 18:40 18:49 RBC (4.70-6.10) M/uL [place] # (Auto) 1.33 H (0.11-0.59) K/uL Potassium 3.4 L (3.5-5.1) mmol/L Chloride 97 L (98-107) mmol/L BUN 24 H (6-23) mg/dl BUN/Creatinine Ratio 21.8 H (10-20) Glucose 104 H (70-99(Fasting)) mg/dl POC Glucose (70-99) mg/dl Hemoglobin A1c (4.5-5.6) % Calcium (8.6-10.3) mg/dl Troponin I High Sens 83.4 H* (0-20) pg/ml B-Natriuretic Peptide 133 H (0-100) pg/ml Cholesterol/HDL Ratio (0-5) SARS-CoV-2 (PCR) POSITIVE A (Negative) 04/13/24 04/13/24 04/13/24 Range/Units 05:32 06:10 11:40 RBC 4.56 L (4.70-6.10) M/uL [place] # (Auto) 0.98 H (0.11-0.59) K/uL Potassium 3.4 L (3.5-5.1) mmol/L Chloride (98-107) mmol/L BUN 24 H (6-23) mg/dl BUN/Creatinine Ratio 23.3 H (10-20) Glucose 101 H (70-99(Fasting)) mg/dl POC Glucose 107 H 135 H (70-99) mg/dl Hemoglobin A1c 6.4 H (4.5-5.6) % Calcium 8.4 L (8.6-10.3) mg/dl Troponin I High Sens 66.6 H* D (0-20) pg/ml B-Natriuretic Peptide (0-100) pg/ml Cholesterol/HDL Ratio 5.3 H (0-5) SARS-CoV-2 (PCR) (Negative) 04/13/24 Range/Units 16:14 RBC (4.70-6.10) M/uL [place] # (Auto) (0.11-0.59) K/uL Potassium (3.5-5.1) mmol/L Chloride (98-107) mmol/L BUN (6-23) mg/dl BUN/Creatinine Ratio (10-20) Glucose (70-99(Fasting)) mg/dl POC Glucose 125 H (70-99) mg/dl Hemoglobin A1c (4.5-5.6) % Calcium (8.6-10.3) mg/dl Troponin I High Sens (0-20) pg/ml B-Natriuretic Peptide (0-100) pg/ml Cholesterol/HDL Ratio (0-5) SARS-CoV-2 (PCR) (Negative)
--- NOTE | 2024-04-13 14:30 | Cardiology Consultation ---
Date of Consultation April 13, 2024 Assessment & Plan (1) Carotid stenosis, left: (2) Acute CVA (cerebrovascular accident): (3) Acute encephalopathy: (4) COVID: (5) Elevated troponin: (6) New onset a-fib: (7) ASCVD (arteriosclerotic cardiovascular disease): Plan Intermittent confusion. Workup with two small acute strokes in the left middle cerebral artery territory, high-grade left internal carotid artery stenosis, new onset atrial fibrillation with a rapid ventricular response, and uncontrolled hypertension Confusion. CVA. As per Hospitalist and Neurology. New onset atrial fibrillation with a rapid ventricular response. Duration unknown. Recommend rate control strategy for now. Add metoprolol tartrate 25 mg BID for heart rate control. Agree with anticoagulation, transitinoing to apixaban (Eliquis) 5 mg twice a day. Discontinue fish oils. ASCVD status post PCI of unknown vessel in the remote past, in [place]. Asymptomatic. Continue appropriate medical management. Hypertension. See Neurology recommendations. Add metoprolol as above. Continue losartan, hydrochlorothiazide, and clonidine Dyslipidemia. Optimal LDL cholesterol goal is less than 55 mg/dL. Agree with addition of moderate intensity statin therapy, atorvastatin 40 mg/day High grade left internal carotid artery stenosis. Recommend Vascular Surgery evaluation, consideration for future intervention. Type 2 diabetes mellitus. As per Hospitalist/PCP Obstructive sleep apnea. Recommend CPAP therapy Supervising Physician Co-Signing Physician Notes Attending attestation: Case reviewed with the advanced practitioner. I have personally performed a history and physical examination on the patient. I have reviewed the advanced practitioner's documentation on the date of service referenced in note, and I agree with, and take responsibility for the plan of care. Federico Guerrero DO History of Present Illness Reason for Consultation: New onset atrial fibrillation Requesting Physician: Dr. Valladares Attending Physician: Dr. Harrell History of Present Illness Mr. Marcos Gomez is a 68-year-old male who presented to the [facility] ER on April 12, 2024, evaluation of intermittent confusion over the past few weeks. Workup has demonstrated two small acute strokes in the left middle cerebral artery territory, high-grade left internal carotid artery stenosis, new onset atrial fibrillation with a rapid ventricular response, and uncontrolled hypertension Neurology has recommended aspirin 81 mg/day along with apixaban (Eliquis) 5 mg twice per day. Patient denies palpitations, chest pain, shortness of breath, cough, chest congestion, orthopnea, PND, edema, dizziness, near syncope, syncope, fevers, chills, melena, hematochezia, or hematuria. Past Medical and Surgical History ASCVD status post PCI of unknown vessel in the remote past, in [place] Hypertension Dyslipidemia Type 2 diabetes mellitus Obstructive sleep apnea, on CPAP therapy Prostate cancer BPH Depression Anxiety Cervical spine fusion Cataract extraction Status post cholecystectomy Social History: Never smoker. No smokeless tobacco. No significant alcohol. No illegal drug use. Retired middle school teacher. Originally from [place] Allergies Allergy/AdvReac Type Severity Reaction Status Date / Time lisinopril AdvReac Intermediate dry cough Verified 04/12/24 21:29 Home Medications Medication Instructions Recorded Confirmed Type aripiprazole 2 mg tablet (Abilify) 2 mg PO DAILY 04/12/24 04/12/24 History aspirin 81 mg tablet,delayed 81 mg PO DAILY 04/12/24 04/12/24 History release clonidine HCl 0.1 mg tablet 0.1 mg PO [facility] 04/12/24 04/12/24 History coQ10 (ubiquinol) 100 mg capsule 0 mg PO DAILY 04/12/24 04/12/24 History garlic 500 mg capsule 500 mg PO DAILY 04/12/24 04/12/24 History glipizide 5 mg tablet, extended 5 mg PO QAM 04/12/24 04/12/24 History release 24 hr hydroxyzine HCl 50 mg tablet 50 mg PO HS 04/12/24 04/12/24 History losartan 100 1 tab PO QAM 04/12/24 04/12/24 History mg-hydrochlorothiazide 25 mg tablet metformin 1,000 mg tablet 1,000 mg PO BIDWMEAL 04/12/24 04/12/24 History omega-3 240 yi-hur-xxp-cod liver 1 cap PO DAILY 04/12/24 04/12/24 History oil 1,000 mg-vit A-vit D3 capsule (cod liver oil) omega-3 fatty acids 1,000 mg 1,000 mg PO DAILY 04/12/24 04/12/24 History capsule venlafaxine 37.5 mg tablet 37.5 mg PO [facility] 04/12/24 04/12/24 History Patient History Medical History Fusion of spine CERV, below c2 Acute pancreatitis Family History Mother , in her 80s with "circulatory problems" No problems noted. 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 Other Information That Helps Us Care for You: No Feels Safe at Home: Yes Safety Concerns: Feels Safe At This Time Assistive Devices: None Review of Systems Review of Systems: Complete Review of Systems is as stated above, negative, or noncontributory. Physical Exam Physical Exam: General: A&Ox3. NAD. Laying supine. HENT: Normocephalic. Atraumatic. Eyes: PER. Conjunctiva pink, sclera clear. Neck: Bilateral carotid bruits. No JVD. No HJR. Heart: Irregularly irregular around 100 bpm. No murmur though examination limited by PPE, provided stethascopy. Lungs: Clear to auscultation. Abdomen: +BS. Soft. Nontender. No masses or organomegaly. Extremities: No clubbing, cyanosis, or edema. Limited neurological examination is without focal deficits. Pulses: Posterior tibial=2/4. Results & Data Vital Signs (Past 12 Hours) Vital Signs Temp Pulse Pulse Resp BP Pulse Ox O2 Del Method 04/13/24 14:10 93 H 04/13/24 10:36 36.4 C L 81 18 148/108 H 95 Room Air 04/13/24 08:11 36.4 C L 83 18 153/89 H 92 Room Air 04/13/24 07:25 84 04/13/24 02:50 36.8 C 74 18 147/87 H 93 Room Air Laboratory Results Cardiac Enzymes 04/12/24 04/12/24 04/13/24 Range/Units 18:16 18:49 05:32 AST 39 (13-39) U/L Troponin I High Sens 83.4 H* 66.6 H* D (0-20) pg/ml B-Natriuretic Peptide 133 H (0-100) pg/ml Coagulation 04/12/24 04/12/24 Range/Units 18:16 18:49 PT 10.9 (9.0-12.0) Seconds APTT 27 (21-31) Seconds B-Natriuretic Peptide 133 H (0-100) pg/ml Lipids 04/13/24 Range/Units 05:32 Triglycerides 99 (0-150) mg/dl Cholesterol 154 (0-200) mg/dl HDL Cholesterol 29 mg/dl Cholesterol/HDL Ratio 5.3 H (0-5) CBC 04/12/24 04/13/24 Range/Units 18:16 05:32 WBC 8.65 7.11 (4.8-10.8) K/ul RBC 4.88 4.56 L (4.70-6.10) M/uL Hgb 15.6 14.7 (14.0-18.0) g/dl Hct 45.9 42.5 (42.0-52.0) % Plt Count 233 197 (130-400) K/uL Neut # (Auto) 3.84 3.28 (1.40-6.50) K/uL Lymph # (Auto) 3.32 2.71 (1.20-3.40) K/uL [place] # (Auto) 1.33 H 0.98 H (0.11-0.59) K/uL Eos # (Auto) 0.07 0.05 (0.00-0.50) K/uL Baso # (Auto) 0.06 0.07 (0.00-0.20) K/uL Comprehensive Metabolic Panel 04/12/24 04/13/24 Range/Units 18:16 05:32 Sodium 137 139 (136-145) mmol/L Potassium 3.4 L 3.4 L (3.5-5.1) mmol/L Chloride 97 L 100 (98-107) mmol/L Carbon Dioxide 30 31 (21-32) mmol/L BUN 24 H 24 H (6-23) mg/dl Creatinine 1.10 1.03 (0.6-1.4) mg/dl Glucose 104 H 101 H (70-99(Fasting)) mg/dl Calcium 9.1 8.4 L (8.6-10.3) mg/dl AST 39 (13-39) U/L ALT 39 (7-52) U/L Alkaline Phosphatase 47 (34-104) U/L Total Protein 7.7 (6.0-8.3) gm/dl Albumin 4.3 (3.4-5.0) gm/dl Intake and Output 04/12/24 04/13/24 04/13/24 22:59 06:59 14:59 Intake Total 500 / 500 1359.000 / 1359.000 Balance 500 / 500 1359.000 / 1359.000 Intake: IV 500 / 500 1359.000 / 1359.000 Potassium Chloride / Wtr 10 meq 388.333 / 388.333 In 100 ml @ 100 mls/hr IV Q1H [facility] Rx#:[id number] Sodium Chloride 0.9% 1,000 ml @ 500 / 500 970.667 / 970.667 80 mls/hr IV .[id number] [facility] Rx#: [id number] Other: Other Intake Source Patient is NPO Weight 113.8 kg 113.8 kg Weight Measurement Method Built in [facility] Diagnostic Findings Noncontrast head CT showed no evidence of acute intracranial pathology, revealing remote ischemic injury of the left thalamus and capsule, mild no nspecific white matter changes, and chronic sinusitis. MRI of the brain revealed a tiny acute ischemic injury in the left temporal lobe without evidence of hemorrhagic transformation, moderate nonspecific white matter changes, possible remote hypertensive microhemorrhages, and chronic pansinusitis CT angiogram of the head was negative however CTA of the neck revealed 80% proximal left internal carotid artery stenosis EKG revealed atrial fibrillation with a rapid ventricular response with diffuse STT wave abnormality. Resting echocardiography notable for a mildly dilated left atrium, moderate concentric LVH without regional wall motion abnormalities, mild aortic valve sclerosis without stenosis, preserved LV systolic function with an ejection fraction of 60 to 65%. Doppler findings were not suggestive of pulmonary hypertension. Telemetry: Atrial fibrillation with rates primarily in the 80's and 90, up to 150 bpm with activity.
--- NOTE | 2024-04-13 14:37 | History & Physical Report ---
Date of Service April 13, 2024 Assessment & Plan (1) Carotid stenosis, left: Plan: This is a 68-year-old gentleman with a severe stenosis of the left internal carotid artery as well as small strokes on his MRI involving the left hemisphere. Clinically he is asymptomatic as far as sensation and motor function. The CTA showed a greater than 80% narrowing of the left internal carotid artery. There is also suggestion of a small amount of contrast in the plaque itself suggesting intraplaque hemorrhage. Due to these findings we recommend either endarterectomy or TCAR. This was discussed with the patient's . I believe at this time being that he is not symptomatic from this lesion I would continue the aspirin 81 mg daily and the statin. I would also add Plavix to his regimen. If the patient and family elect to go ahead with a TCAR then he will need to be on the aspirin, Plavix, and statin for the procedure. Unless he becomes symptomatic I would like to see him in the office right after discharge and then get him scheduled at that time for either endarterectomy or TCAR. At that point he should be far enough out from his COVID positive test that he will not need COVID precautions. Thank you very much for letting us participate in the care of this patient. Admission and Anticipated Discharge Date Admission Date: April 12, 2024 History of Present Illness Chief Complaint: Severe left internal carotid artery stenosis with CVA Primary Care Provider: Lenard King MD This is a 68-year-old gentleman who has had depression, anxiety and recently diagnosed with sleep apnea requiring CPAP. He has a longstanding history of diabetes and hypertension. Over the last week and a half his claims that he has been disoriented at times with times of confusion and memory dysfunction. This has been getting worse over the last few weeks until recently a few days prior to his admission while they were out of state he had an episode of forgetting how to get dressed and feed himself. He presented to the emergency room yesterday with new onset atrial fibrillation. He complained of no focal deficits according to the . In addition his claimed that his balance has been poor over the last week. Workup showed tiny left hemispheric strokes in the middle cerebral artery territory distribution. It also showed a greater than 80% narrowing of the left internal carotid artery at its origin. He also tested positive at this time for COVID. Allergies Allergy/AdvReac Type Severity Reaction Status Date / Time lisinopril AdvReac Intermediate dry cough Verified 04/12/24 21:29 Home Medications Medication Instructions Recorded Confirmed Type aripiprazole 2 mg tablet (Abilify) 2 mg PO DAILY 04/12/24 04/12/24 History aspirin 81 mg tablet,delayed 81 mg PO DAILY 04/12/24 04/12/24 History release clonidine HCl 0.1 mg tablet 0.1 mg PO [facility] 04/12/24 04/12/24 History coQ10 (ubiquinol) 100 mg capsule 0 mg PO DAILY 04/12/24 04/12/24 History garlic 500 mg capsule 500 mg PO DAILY 04/12/24 04/12/24 History glipizide 5 mg tablet, extended 5 mg PO QAM 04/12/24 04/12/24 History release 24 hr hydroxyzine HCl 50 mg tablet 50 mg PO HS 04/12/24 04/12/24 History losartan 100 1 tab PO QAM 04/12/24 04/12/24 History mg-hydrochlorothiazide 25 mg tablet metformin 1,000 mg tablet 1,000 mg PO BIDWMEAL 04/12/24 04/12/24 History omega-3 240 ch-zsb-yay-cod liver 1 cap PO DAILY 04/12/24 04/12/24 History oil 1,000 mg-vit A-vit D3 capsule (cod liver oil) omega-3 fatty acids 1,000 mg 1,000 mg PO DAILY 04/12/24 04/12/24 History capsule venlafaxine 37.5 mg tablet 37.5 mg PO [facility] 04/12/24 04/12/24 History Past Med/Surg History Problem List Chronic cerebral ischemia Carotid stenosis, left Acute CVA (cerebrovascular accident) Acute encephalopathy COVID (Acute) Elevated troponin (Acute) New onset a-fib (Acute) Confusion (Acute) Mild cognitive impairment Abnormal colonoscopy LISBETH on CPAP Diabetes (Chronic) Hypertension (Chronic) Anxiety (Acute) MDD (major depressive disorder) (Acute 10/10/14) Mood disorder (Acute) UTI (urinary tract infection) (Acute) Medical History Fusion of spine CERV, below c2 Acute pancreatitis Family History Mother , in her 80s with "circulatory problems" No problems noted. 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 Other Information That Helps Us Care for You: No Feels Safe at Home: Yes Safety Concerns: Feels Safe At This Time Assistive Devices: CPAP Review of Systems All systems reviewed & are unremarkable except as noted in Subjective Physical Exam Constitutional: WD/WN, vitals as above Respiratory: normal respiratory effort; no respiratory distress Cardiovascular: Rate/Rhythm: regular rate and regular rhythm Extremities: normal capillary refill Gastrointestinal (Abdomen): Inspection/Auscultation: abdomen normal to inspection; abdomen not distended Percussion/Palpation: abdomen soft Neurologic: CN's II-XI intact bilaterally and moves all extremities Psychiatric: Orientation: alert Results & Data Vital Signs (Past 12 Hours) Vital Signs Temp Pulse Pulse Resp BP Pulse Ox O2 Del Method 04/13/24 14:10 93 H 04/13/24 10:36 36.4 C L 81 18 148/108 H 95 Room Air 04/13/24 08:11 36.4 C L 83 18 153/89 H 92 Room Air 04/13/24 07:25 84 04/13/24 02:50 36.8 C 74 18 147/87 H 93 Room Air Code Status & VTE Plan VTE Prophylaxis Plan VTE Prophylaxis will be ordered: Yes
[2024-04-13] MEDS ORDERED: Nursing to Pharmacy Communication SCH (15:00)
[2024-04-13 15:35] LABS: INR 1.1 (0.9-1.1); Partial Thromboplastin Ratio 1.2; Partial Thromboplastin Time 31 Seconds (21-31); Prothrombin Time 11.5 Seconds (9.0-12.0)
[2024-04-13] MEDS: Heparin IV Adult Wt-Based Low-Dose *NO* INITIAL Bolus Protocol IV SCH (15:45)
[2024-04-13] MEDS: INSULIN ASPART PER UNIT CHARGE SC SCH (16:59)
[2024-04-13] MEDS: hydrOXYzine HCl 25 MG TAB PO SCH (19:48)
[2024-04-13 21:25] LABS: Basophils # (auto) 0.04 K/uL (0.00-0.20); Basophils % (auto) 0.6 %; Eosinophils # (auto) 0.05 K/uL (0.00-0.50); Eosinophils % (auto) 0.7 %; Hematocrit (blood only) 41.1 % (42.0-52.0); Hemoglobin 14.5 g/dl (14.0-18.0); Immature Granulocytes # (auto) 0.02 K/uL (0.01-0.20); Immature Granulocytes % (auto) 0.3 %; Lymphocytes # (auto) 3.03 K/uL (1.20-3.40); Lymphocytes % (auto) 43.6 %; Mean Corpuscular Hemoglobin 31.9 pg (25.0-34.0); Mean Corpuscular Hgb Conc 35.3 g/dL (32.0-36.0); Mean Corpuscular Volume 90.3 fL (80.0-100.0); Mean Platelet Volume 10.3 fL (9.4-12.4); Monocytes # (auto) 0.62 K/uL (0.11-0.59); Monocytes % (auto) 8.9 %; Neutrophils # (auto) 3.19 K/uL (1.40-6.50); Neutrophils % (auto) 45.9 %; Platelet Count 213 K/uL (130-400); RDW Coefficient of Variation 12.6 % (11.5-14.5); RDW Standard Deviation 41.8 fL (36.4-46.3); Red Blood Count 4.55 M/uL (4.70-6.10); White Blood Count 6.95 K/ul (4.8-10.8)
[2024-04-13] MEDS: HEPARIN SODIUM/DEXTROSE 25,000 UNITS/500 ML BAG IV SCH (21:27)
[2024-04-13] MEDS: METOPROLOL TARTRATE 25 MG TAB PO SCH (21:27)
[2024-04-13 21:57] LABS: INR 1.1 (0.9-1.1); Prothrombin Time 11.4 Seconds (9.0-12.0)
[2024-04-14 03:51] LABS: Basophils # (auto) 0.05 K/uL (0.00-0.20); Basophils % (auto) 0.7 %; Eosinophils # (auto) 0.15 K/uL (0.00-0.50); Hematocrit (blood only) 39.9 % (42.0-52.0); Immature Granulocytes # (auto) 0.02 K/uL (0.01-0.20); Immature Granulocytes % (auto) 0.3 %; Lymphocytes # (auto) 3.32 K/uL (1.20-3.40); Lymphocytes % (auto) 44.6 %; Mean Corpuscular Hemoglobin 32.1 pg (25.0-34.0); Mean Corpuscular Hgb Conc 35.1 g/dL (32.0-36.0); Mean Corpuscular Volume 91.5 fL (80.0-100.0); Mean Platelet Volume 10.3 fL (9.4-12.4); Monocytes # (auto) 0.64 K/uL (0.11-0.59); Monocytes % (auto) 8.6 %; Neutrophils # (auto) 3.27 K/uL (1.40-6.50); Neutrophils % (auto) 43.8 %; Platelet Count 210 K/uL (130-400); RDW Coefficient of Variation 12.6 % (11.5-14.5); RDW Standard Deviation 42.4 fL (36.4-46.3); Red Blood Count 4.36 M/uL (4.70-6.10); White Blood Count 7.45 K/ul (4.8-10.8)
[2024-04-14 04:08] LABS: BUN Creatinine Ratio 21.9 (10-20); Calcium 8.4 mg/dl (8.6-10.3); Est GFR (African American) 93.1 ml/min; Est GFR (Non-African American) 80.3 ml/min; Potassium 3.1 mmol/L (3.5-5.1)
[2024-04-14 04:33] LABS: Partial Thromboplastin Ratio 1.5; Partial Thromboplastin Time 40 Seconds (21-31)
[2024-04-14] MEDS: HEPARIN SOD (PORCINE) 1000 UNIT/ML IV ONE (05:37)
[2024-04-14] MEDS: POTASSIUM CHLORIDE CRTAB 20 MEQ TABCR PO STA (08:26)
--- NOTE | 2024-04-14 08:33 | Neurology Progress Note ---
Date of Service April 14, 2024 Assessment & Plan (1) Acute CVA (cerebrovascular accident): (2) COVID: Admission and Anticipated Discharge Date Admission Date: April 12, 2024 Subjective pt this morning doing well. NAD. fully oriented and aware of location, year , president name , hospital name. pt also remembered me from recent outpt neurology visit. prior medical history inpt: Acute CVA, likely embolic Acute encephalopathy New Afib Intermittent confusion over the past 3 weeks, worsened on day of presentation CT head did not show acute abnormalities CTA head and neck showed 80% stenosis of proximal left ICA Brain MRI showed acute tiny infarct in the left temporal lobe without evidence of hemorrhagic transformation. Patient was found to have new onset A-fib Was evaluated by [facility] stroke neurology on admission and was recommend to start on Eliquis for his A-fib as stroke is small in size and no hemorrhagic conversion and his blood pressure is okay currently. Also recom mended EEG as patient is having on and off confusion Patient was started on ASA, eliquis, statin Neurology Dr Draper evaluated this morning. He agreed with recommendation. However, he is concerned of possible infectious cause and recommend possible LP I discussed with IR Dr Walker. Patient had gotten eliquis this AM. IR recommends holding eliquis and keeping patient on hep gtt and they will plan LP in about 72hr. Plan to hold hep gtt 4h before LP on Per Neuro, get CSF lyme, AFB, cryptococcus in addition to typical CSF studies. Hold eliquis for now. Start hep gtt this evening. Vascular eval noted. Since patient is on anticoagulant as well, will continue only ASA. Patient is to follow up with Vascular later for mgt of stenosis Results & Data Vital Signs (Past 12 Hours) Vital Signs Temp Pulse Resp BP Pulse Ox O2 Del Method 04/14/24 07:43 36.7 C 78 20 131/84 96 CPAP 04/14/24 02:35 36.6 C 65 20 145/92 H 98 CPAP 04/13/24 22:53 36.5 C 68 18 145/81 H 96 CPAP Exam (Neuro) Physical Exam: Neuro: Mental: AOx4, fluent speech, normal comprehension, no apraxia, no neglect CN: PERRL, Full EOM, symmetric face, Motor: No abnormal movements Coord: intact grossly Impression: 68 yo male with subacute course of fluctuating confusion in setting of covid infection, small left temporal/MCA territory ischemic stroke and newly dx atrial fib. pt currently doing very well with no longer confused. Pt was seen by me last month for MCI. Covid infection with stroke likely contributed to his fluctuating symptoms and now doing much better. Recommendations: pt planned for LP on (currently on Heparin drip for the LP, will go back on eliquis once LP done). continue supportive care as now. vascular will see him as outpt for possible CEA. no new recommendations. Chart reviewed I have spent more than 50% educating patient about potential diagnosis and neurological evaluation and coordinating care with patient's treatment team. Total time spent (including chart review and coordination of care): 40 min (this includes chart review). PG Care Time/CCT Total # of Minutes Spent Total Time Spent with Patient: Total time spent is greater than 50% in coordination of care (as documented) at patient's floor/unit and/or counseling patient: Coding Level of Care Code 61397 SUB INP/OBS CARE 2/35MIN Diagnoses Acute CVA (cerebrovascular accident) I63.9 COVID U07.1
[2024-04-14 08:43] LABS: Magnesium 1.9 mg/dl (1.7-2.4)
--- NOTE | 2024-04-14 12:14 | Cardiology Progress Note ---
Date of Service April 14, 2024 Assessment & Plan (1) Acute CVA (cerebrovascular accident): (2) New onset a-fib: (3) ASCVD (arteriosclerotic cardiovascular disease): (4) Carotid stenosis, left: Plan On further discussion with the patient/spouse, he recalled having had coronary stents at this institution. Per review of the link to the previous medical record, patient underwent invasive coronary angiography with placement of drug- eluting stents to the mid LAD and diagonal branch of the LAD in [address] Ugarte. Patient remains in a rate controlled atrial fibrillation. 80% focal left proximal internal carotid artery stenosis noted on CT angiogram. Vascular surgery and neurology input noted and appreciated. Patient has been transitioned from Eliquis to a heparin infusion with plans for lumbar puncture 72 hours after previous Eliquis dose. Will need to come to a consensus between cardiology, neurology, and vascular surgery with regards to antiplatelet therapy/anticoagulation. Anticoagulation felt to be indicated given his finding of atrial fibrillation with either direct oral anticoagulant long-term (such as Eliquis) or vitamin K antagonist. Antiplatelet therapy indicated given history of coronary heart disease, and carotid disease. Per vascular surgery note, dual antiplatelet therapy with aspirin clopidogrel a consideration if TCAR approach utilized for carotid stenosis. It would likely be ideal to avoid triple therapy, and to consider using dual a ntiplatelet therapy if felt to be absolutely necessary and for the shortest course possible in the setting of anticoagulation for the atrial fibrillation. For now, he is on aspirin 81 mg daily, and heparin. Continue metoprolol tartrate 25 mg twice daily. HCTZ and losartan are on hold, he remains on clonidine. Presenting LDL cholesterol was 105 mg/dL. Per review of his presenting medication list, it appears he was not on a statin despite his history of coronary heart disease, coronary stents, and diabetes. He is now on atorvastatin 40 mg daily. Patient remains on isolation given positive test for SARS-CoV-2. He has no symptoms of respiratory tract infection subjectively. DVT prophylaxis: Patient is on a heparin infusion. Admission and Anticipated Discharge Date Admission Date: April 12, 2024 Subjective Patient seen in cardiology follow up. Mentating well. Spouse , Margo, at bedside . Telemetry reveals rate controleld AF. Physical Exam Constitutional: WD/WN, vitals as above Respiratory: normal respiratory effort, lungs clear to auscultation Cardiovascular: Rate/Rhythm: + irregularly irregular Heart Sounds: normal S1 and normal S2; no murmur Extremities: no edema Gastrointestinal (Abdomen): normal bowel sounds, soft, nontender, no hepatosplenomegaly Neurologic: PERRL, EOMI, accommodation nl, no face palsy, no dysarthria Results & Data Vital Signs (Past 12 Hours) Vital Signs Temp Pulse Resp BP Pulse Ox O2 Del Method 04/14/24 11:38 36.4 C L 66 20 129/73 97 Room Air 04/14/24 07:43 36.7 C 78 20 131/84 96 CPAP 04/14/24 02:35 36.6 C 65 20 145/92 H 98 CPAP Laboratory Results Coagulation 04/13/24 04/13/24 04/14/24 Range/Units 14:52 21:02 03:35 PT 11.5 11.4 (9.0-12.0) Seconds APTT 31 40 H (21-31) Seconds CBC 04/13/24 04/14/24 Range/Units 21:02 03:35 WBC 6.95 7.45 (4.8-10.8) K/ul RBC 4.55 L 4.36 L (4.70-6.10) M/uL Hgb 14.5 14.0 (14.0-18.0) g/dl Hct 41.1 L 39.9 L (42.0-52.0) % Plt Count 213 210 (130-400) K/uL Neut # (Auto) 3.19 3.27 (1.40-6.50) K/uL Lymph # (Auto) 3.03 3.32 (1.20-3.40) K/uL [place] # (Auto) 0.62 H 0.64 H (0.11-0.59) K/uL Eos # (Auto) 0.05 0.15 (0.00-0.50) K/uL Baso # (Auto) 0.04 0.05 (0.00-0.20) K/uL Comprehensive Metabolic Panel 04/14/24 Range/Units 03:35 Sodium 134 L (136-145) mmol/L Potassium 3.1 L (3.5-5.1) mmol/L Chloride 99 (98-107) mmol/L Carbon Dioxide 28 (21-32) mmol/L BUN 21 (6-23) mg/dl Creatinine 0.96 (0.6-1.4) mg/dl Glucose 115 H (70-99(Fasting)) mg/dl Calcium 8.4 L (8.6-10.3) mg/dl Intake and Output 04/13/24 04/14/24 04/14/24 22:59 06:59 14:59 Intake Total 725 / 2347.667 263.667 / 2347.667 34.708 / 34.708 Output Total Balance 724 / 2346.667 263.667 / 2346.667 34.708 / 34.708 Intake: IV 163.667 / 1522.667 34.708 / 34.708 Heparin Sodium/Dextrose 25,000 163.667 / 163.667 34.708 / 34.708 units In 500 ml @ 1,225 UNITS/ HR 24.5 mls/hr IV .[id number] [facility] Rx#:[id number] Oral 725 / 825 100 / 825 Output: # Bowel Movements Other: # Unmeasured Voids 3 1 Weight 113.9 kg
[2024-04-14 12:20] LABS: Partial Thromboplastin Ratio 1.6; Partial Thromboplastin Time 44 Seconds (21-31)
--- NOTE | 2024-04-14 13:34 | Hospitalist Progress Note ---
Date of Service April 14, 2024 Assessment & Plan (1) Confusion: Plan: 68-year-old male with past medical history significant for type 2 diabetes, hyperlipidemia, obstructive sleep apnea on CPAP, hypertension, CAD s/p stent, obesity, prostate cancer, BPH, depression, comes with confusion that started 3 weeks ago. Patient found to have new onset A-fib and also COVID positive. Acute CVA, likely embolic Acute encephalopathy New Afib Intermittent confusion over the past 3 weeks, worsened on day of presentation CT head did not show acute abnormalities CTA head and neck showed 80% stenosis of proximal left ICA Brain MRI showed acute tiny infarct in the left temporal lobe without evidence of hemorrhagic transformation. Patient was found to have new onset A-fib Was evaluated by [facility] neurology on admission and was recommend to start on Eliquis for his A-fib as stroke is small in size and no hemorrhagic conversion and his blood pressure is okay currently. Also recommended EEG as patient is having on and off confusion Patient was started on ASA, eliquis, statin Neurology evaluated and recommended further evaluation with LP On 04/13/24, I discussed with IR Dr Walker. IR recommended holding eliquis and keeping patient on hep gtt and they will plan LP in about 72hr. Plan to hold hep gtt 4h before LP on Per Neuro, get CSF lyme, AFB, cryptococcus in addition to typical CSF studies. Currently on hep gtt, ASA, statin Vascular eval noted. Since patient is on anticoagulant as well, will continue only ASA. Patient is to follow up with Vascular later for mgt of stenosis Need to confirm with Card/Neuro/Vascular if patient will be on just ASA and eliquis on dc or DAPT (as vascular noted) in addition to eliquis prior to dc New A-fib Rate controlled Elevated trop likely demand due to Afib/CVA Anticoagulation as above TTE showed mod conc LVH, EF 60-65%, LA mildly dilated, AV sclerosis mild without significant stenosis Card eval and recs noted Continue lopressor started this admission COVID-positive Asymptomatic COVID precautions Close monitor Type 2 diabetes Hold home p.o. medications Sliding scale A1c levels 6.4 Obstructive sleep apnea CPAP nightly Hypertension Continue clonidine Holding lisinopril hydrochlorothiazide for permissive hypertension Close monitor Depression On venlafaxine and Abilify CAD s/p stent On aspirin Started on atorvastatin Prostate cancer Low-grade on active surveillance since 2019 Following with urology DVT prophylaxis Hep gtt Full code. I called and updated her She has some concerns about LP. I answered all her questions. She stated that we continue current management and she will discuss with a family member who is a Dr and let us know tomorrow if she changes her mind about LP. I spent a total of 50 minutes coordinating, documenting and providing care for this patient excluding time spent in performance of separately billed services Admission and Anticipated Discharge Date Admission Date: April 12, 2024 Subjective Patient seen and examined Denied cough today Denied chest pain, SOB Denied any other complaints on ROS Physical Exam Constitutional: + well hydrated; no acute distress Eyes: PERRL, conjunctivae normal, anicteric sclerae ENMT: external ear and nose normal, oropharynx normal Respiratory: normal respiratory effort, lungs clear to auscultation Cardiovascular: Rate/Rhythm: + irregularly irregular Gastrointestinal (Abdomen): normal bowel sounds, soft, nontender, no hepatosplenomegaly Musculoskeletal: No pedal edema Neurologic: PERRL, EOMI, accommodation nl, no face palsy, no dysarthria No focal deficits in power noted Psychiatric: A+Ox3, euthymic affect Results & Data Results & Data Vital Signs (Past 12 Hours) Vital Signs Temp Pulse Resp BP Pulse Ox O2 Del Method 04/14/24 11:38 36.4 C L 66 20 129/73 97 Room Air 04/14/24 07:43 36.7 C 78 20 131/84 96 CPAP 04/14/24 02:35 36.6 C 65 20 145/92 H 98 CPAP Laboratory Results Abnormal lab results 04/13/24 04/13/24 04/13/24 Range/Units 16:14 19:54 21:02 RBC 4.55 L (4.70-6.10) M/uL Hct 41.1 L (42.0-52.0) % [place] # (Auto) 0.62 H (0.11-0.59) K/uL APTT (21-31) Seconds Heparin Anti-Xa, Unfract 1.30 H* (0.3-0.7) IU/ml Sodium (136-145) mmol/L Potassium (3.5-5.1) mmol/L BUN/Creatinine Ratio (10-20) Glucose (70-99(Fasting)) mg/dl POC Glucose 125 H 165 H (70-99) mg/dl Calcium (8.6-10.3) mg/dl 04/14/24 04/14/24 04/14/24 Range/Units 03:35 07:39 11:25 RBC 4.36 L (4.70-6.10) M/uL Hct 39.9 L (42.0-52.0) % [place] # (Auto) 0.64 H (0.11-0.59) K/uL APTT 40 H 44 H (21-31) Seconds Heparin Anti-Xa, Unfract (0.3-0.7) IU/ml Sodium 134 L (136-145) mmol/L Potassium 3.1 L (3.5-5.1) mmol/L BUN/Creatinine Ratio 21.9 H (10-20) Glucose 115 H (70-99(Fasting)) mg/dl POC Glucose 130 H (70-99) mg/dl Calcium 8.4 L (8.6-10.3) mg/dl 04/14/24 Range/Units 11:35 RBC (4.70-6.10) M/uL Hct (42.0-52.0) % [place] # (Auto) (0.11-0.59) K/uL APTT (21-31) Seconds Heparin Anti-Xa, Unfract (0.3-0.7) IU/ml Sodium (136-145) mmol/L Potassium (3.5-5.1) mmol/L BUN/Creatinine Ratio (10-20) Glucose (70-99(Fasting)) mg/dl POC Glucose 129 H (70-99) mg/dl Calcium (8.6-10.3) mg/dl
--- NOTE | 2024-04-14 17:25 | Electrocardiogram Report ---
Test Reason : Blood Pressure : */* mmHG Vent. Rate : 84 BPM Atrial Rate : 100 BPM P-R Int : * ms QRS Dur : 98 ms QT Int : 410 ms P-R-T Axes : * 41 33 degrees QTcB Int : 484 ms Atrial fibrillation with premature ventricular or aberrantly conducted complexes Nonspecific T wave abnormality Abnormal ECG When compared with ECG of 13-Apr-2024 04:36, Minimal criteria for Inferior infarct are no longer Present Confirmed by Chase Dyer ([id number]) on 04/14/2024 5:24:47 PM Referred By: REFERRED SELF Confirmed By: Chase Dyer
[2024-04-14] MEDS: APIXABAN 5 MG TABLET PO SCH (19:48)
[2024-04-14 20:03] LABS: Partial Thromboplastin Ratio 1.3; Partial Thromboplastin Time 36 Seconds (21-31)
[2024-04-14] MEDS: METOPROLOL SUCC 25MG EXT REL TAB PO SCH (20:24)
[2024-04-15 07:17] VITALS: BP 126/50; PULSE 98; RESP 20; TEMP 98.1; O2SAT 97
[2024-04-15 08:00] LABS: Basophils # (auto) 0.04 K/uL (0.00-0.20); Basophils % (auto) 0.4 %; Eosinophils # (auto) 0.06 K/uL (0.00-0.50); Eosinophils % (auto) 0.7 %; Hematocrit (blood only) 41.1 % (42.0-52.0); Hemoglobin 14.5 g/dl (14.0-18.0); Immature Granulocytes # (auto) 0.03 K/uL (0.01-0.20); Immature Granulocytes % (auto) 0.3 %; Lymphocytes # (auto) 2.92 K/uL (1.20-3.40); Lymphocytes % (auto) 32.4 %; Mean Corpuscular Hgb Conc 35.3 g/dL (32.0-36.0); Mean Corpuscular Volume 90.7 fL (80.0-100.0); Mean Platelet Volume 10.5 fL (9.4-12.4); Monocytes # (auto) 0.79 K/uL (0.11-0.59); Monocytes % (auto) 8.8 %; Neutrophils # (auto) 5.17 K/uL (1.40-6.50); Neutrophils % (auto) 57.4 %; Platelet Count 218 K/uL (130-400); RDW Coefficient of Variation 12.3 % (11.5-14.5); RDW Standard Deviation 40.7 fL (36.4-46.3); Red Blood Count 4.53 M/uL (4.70-6.10); White Blood Count 9.01 K/ul (4.8-10.8)
[2024-04-15 08:13] LABS: BUN Creatinine Ratio 19.8 (10-20); Calcium 8.3 mg/dl (8.6-10.3); Creatinine Clr Calc Pharmacy 101.2 ml/min; Est GFR (African American) 99.3 ml/min; Est GFR (Non-African American) 85.7 ml/min; Magnesium 1.7 mg/dl (1.7-2.4); Phosphorus 2.9 mg/dl (2.5-4.9); Potassium 3.5 mmol/L (3.5-5.1)
[2024-04-15] MEDS: LOSARTAN POTASSIUM 25 MG TAB PO SCH (08:38)
[2024-04-15] MEDS ORDERED: STROKE PATIENT DISCHARGE STA (09:54)
--- NOTE | 2024-04-15 09:56 | Discharge Summary ---
Discharge Summary Date of Service April 15, 2024 Principal Dx & Hospital Course #1 = Principal Diagnosis (1) Confusion: Plan Pt is a 68-year-old male with past medical history significant for type 2 diabetes, hyperlipidemia, obstructive sleep apnea on CPAP, hypertension, CAD s/p stent, obesity, prostate cancer, BPH, depression, comes with confusion that started 3 weeks ago. Patient found to have new onset A-fib and was also COVID positive. Acute CVA, likely embolic Acute encephalopathy New Afib Intermittent confusion over the past 3 weeks, worsened on day of presentation CT head did not show acute abnormalities CTA head and neck showed 80% stenosis of proximal left ICA Brain MRI showed acute tiny infarct in the left temporal lobe without evidence of hemorrhagic transformation. Patient was found to have new onset A-fib Was evaluated by [facility] neurology on admission and recommended starting on Eliquis for his A-fib as stroke is small in size and no hemorrhagic conversion and his blood pressure was stable. Also recommended EEG as patient is having on and off confusion Patient was started on ASA, eliquis, statin Neurology evaluated and recommended further evaluation with LP. Pt and declined LP. Per Neuro, get CSF lyme, AFB, cryptococcus in addition to typical CSF studies. Vascular eval noted. -Case was discussed with Vascular Surgery Dr Jiang on 04/15/24- recommended starting pt on Plavix with aspirin, as well as Eliquis in anticipation of TCAR procedure to be done as an outpatient. Per Dr Jiang, pt will need Plavix testing and then will need the DAPT for 30 days post procedure. Patient is to follow up with Vascular later for management of stenosis Please ensure Vascular Surgery followup. please ensure follow up with Neurology after discharge. New A-fib Rate controlled Elevated trop likely demand due to Afib/CVA Anticoagulation as above with Eliquis TTE showed mod conc LVH, EF 60-65%, LA mildly dilated, AV sclerosis mild without significant stenosis Card eval and recs noted Continue lopressor started this admission Please ensure follow up with Cardiology after discharge. COVID-positive Asymptomatic COVID precautions Close monitor Type 2 diabetes Held home p.o. medications, resume on discharge Sliding scale A1c level 6.4 Obstructive sleep apnea CPAP nightly Hypertension Continue clonidine Discontinued lisinopril-hydrochlorothiazide Pt discharged with lower dose losartan 25mg daily PCP followup Depression On venlafaxine and Abilify CAD s/p stent On aspirin Started on atorvastatin Cardiology f/u Prostate cancer Low-grade on active surveillance since 2019 Following with urology Started on pantoprazole 40mg daily for GI prophylaxis while on Eliquis, Plavix and baby aspirin. Notes For Next Care Provider Vascular Surgery recommending triple therapy with Plavix and aspirin for upcoming TCAR procedure, and Eliquis for atrial fibrillation per Cardiology Please ensure follow up with Vascular Surgery Please ensure followup with Cardiology Please ensure follow up with Neurology Medication Changes From Visit Per Vascular Surgery: Plavix 75mg daily with aspirin 81mg daily Per Cardiology: losartan 25mg daily Eliquis 5mg BID metoprolol succinate 25mg BID pantoprazole 40mg daily for GI prophylaxis while on Eliquis, aspirin and plavix Admission HPI Per Admitting Provider This is a 68-year-old gentleman who has had depression, anxiety and recently diagnosed with sleep apnea requiring CPAP. He has a longstanding history of diabetes and hypertension. Over the last week and a half his claims that he has been disoriented at times with times of confusion and memory dysfunction. This has been getting worse over the last few weeks until recently a few days prior to his admission while [place] were [place] of [place] he had an episode of forgetting how to get dressed and feed himself. He presented to the emergency room yesterday with new onset atrial fibrillation. He complained of no focal deficits according to the . In addition his claimed that his balance has been poor over the last week. Workup showed tiny left hemispheric strokes in the middle cerebral artery territory distribution. It also showed a greater than 80% narrowing of the left internal carotid artery at its origin. He also tested positive at this time for COVID. Admission Exam Per Admitting Provider General-Not in distress Head- atraumatic Eyes- PERRL,. ENT- oropharynx clear Neck- supple, no JVD. Lungs- clear to auscultation no wheezing or crackles Heart- regular rate and rhythm; no murmur, no gallop. Abdomen- normal bowel sounds, soft, nontender, no distension Extremities- no pretibial edema, no erythema seen Neuro- alert, oriented x 3; PERRL, no facial palsy; no dysarthria; motor 5/5 bilaterally; no pronator drift, normal co ordination of movements , sensations intact. Skin- warm & dry Discharge Exam General: Alert, oriented. No acute distress, cpap mask on face Skin: No noted rashes or bruises Psych: Appropriate mood and affect Neuro: No gross deficits while laying in bed HEENT: NC/AT CV: Irregular Resp: Breath sounds clear bilaterally, no increased effort of breathing Abdomen: Soft, nontender, nondistended Updated Medication List Medication Instructions Recorded Confirmed Type aripiprazole 2 mg tablet (Abilify) 2 mg PO DAILY 04/12/24 04/12/24 History aspirin 81 mg tablet,delayed 81 mg PO DAILY 04/12/24 04/12/24 History release clonidine HCl 0.1 mg tablet 0.1 mg PO AMHS 04/12/24 04/12/24 History coQ10 (ubiquinol) 100 mg capsule 0 mg PO DAILY 04/12/24 04/12/24 History garlic 500 mg capsule 500 mg PO DAILY 04/12/24 04/12/24 History glipizide 5 mg tablet, extended 5 mg PO QAM 04/12/24 04/12/24 History release 24 hr hydroxyzine HCl 50 mg tablet 50 mg PO HS 04/12/24 04/12/24 History metformin 1,000 mg tablet 1,000 mg PO BIDWMEAL 04/12/24 04/12/24 History venlafaxine 37.5 mg tablet 37.5 mg PO AMHS 04/12/24 04/12/24 History apixaban 5 mg tablet (Eliquis) 5 mg PO BID #60 tabs 04/14/24 Rx atorvastatin 40 mg tablet 40 mg PO QAM 30 days #30 tabs 04/14/24 Rx losartan 25 mg tablet 25 mg PO QAM 30 days #30 tabs 04/14/24 Rx metoprolol succinate 25 mg 25 mg PO BID 30 days #60 tabs 04/14/24 Rx tablet,extended release 24 hr clopidogrel 75 mg tablet (Plavix) 75 mg PO DAILY #30 tabs 04/15/24 Rx pantoprazole 40 mg tablet,delayed 40 mg PO DAILY #30 tabs 04/15/24 Rx release Hospital Stay Data Consultations 04/12/24 19:52 ED Decision to Admit Stat 04/13/24 08:00 Consult Cardiology Routine Consult Neurology Routine 04/13/24 09:15 Consult Vascular Surgery Routine Diagnostic Imagining Performed 04/12/24 18:39 CT head/brain wo con Stat 04/13/24 00:17 MR brain wo/w con Urgent 04/13/24 03:05 CT angio head w con Urgent CT angio neck with con Urgent Chest X-Ray 04/12/24 18:28 XR chest 1V portable HISTORY: Chest pain, nonspecific COMPARISON: None. FINDINGS: The lungs are clear. Cardiac silhouette is normal in size. No pleural effusions. No pneumothorax. IMPRESSION: No acute process. ACT 112: Negative or not required by law. Electronically signed by: Yaniv Pate M.D. 04/12/2024 7:[address] 04/12/24 18:39 Exam(s): CT HEAD Without Contrast EXAM: CT Head Without Intravenous Contrast CLINICAL HISTORY: Reason for exam: confusion, a fib. TECHNIQUE: Axial computed tomography images of the head/brain without intravenous contrast. CTDI is 34.93 mGy and DLP is 624.41 mGy-cm. Automated exposure control was utilized for the study. A dose lowering technique was utilized adhering to the principles of ALARA. COMPARISON: No relevant prior studies available. FINDINGS: Brain: Remote ischemic injury of the left thalamus and capsule. No hemorrhage. Mild nonspecific white matter changes. No edema. Ventricles: Unremarkable. No ventriculomegaly. Bones/joints: Unremarkable. No acute fracture. Soft tissues: Unremarkable. Sinuses: Chronic ethmoid and left frontal sinusitis. No acute sinusitis. Mastoid air cells: Unremarkable as visualized. No mastoid effusion. IMPRESSION: No evidence of acute intracranial pathology. Electronically signed by: Nitza Garcia MD 04/12/24 23:23 PM Brain MRI 04/13/24 00:17 CR Exam(s): MRI HEAD W/WO Contrast IV Amt: 10cc gadavist EXAM: MR Head Without and With Intravenous Contrast CLINICAL HISTORY: Reason for exam: confusion. TECHNIQUE: Magnetic resonance images of the head/brain without and with intravenous contrast in multiple planes. CONTRAST: Patient received 10cc gadavist of IV contrast COMPARISON: Prior head CT from April 12, 2024. FINDINGS: Brain: There is a tiny acute ischemic injury in the left temporal lobe without evidence of hemorrhagic transformation. Moderate nonspecific white matter changes. The flow voids at the base of the brain are intact. No mass. There are several tiny punctate foci of susceptibility artifact within the cerebellum, donna and temporal lobes which may represent remote hypertensive microhemorrhages. Ventricles: Unremarkable. No ventriculomegaly. Bones/joints: Unremarkable. No acute fracture. Sinuses: Chronic pansinusitis. No acute sinusitis. Mastoid air cells: Unremarkable as visualized. No mastoid effusion. Orbits: Bilateral lens replacements. IMPRESSION: There is a tiny acute ischemic a noted within the left temporal lobe without evidence of hemorrhagic transformation. Communications: Verify Receipt Electronically signed by: Nitza Garcia MD 04/13/24 02:38 AM Head CTA 04/13/24 03:05 Exam(s): CTA HEAD With Contrast IV Amt: 118 ML OPTIRAY 320 EXAM: CT Angiography Head With Intravenous Contrast CLINICAL HISTORY: Reason for exam: cva. TECHNIQUE: Axial computed tomographic angiography images of the head with intravenous contrast. CTDI is 33.21 mGy and DLP is 16.61 mGy-cm. Automated exposure control was utilized for the study. A dose lowering technique was utilized adhering to the principles of ALARA. MIP reconstructed images were created and reviewed. CONTRAST: Patient received 118 ML OPTIRAY 320 of IV contrast COMPARISON: No relevant prior studies available. FINDINGS: The dural venous sinuses are patent. Right internal carotid artery: No acute findings. Intracranial segment is patent with no significant stenosis. No aneurysm. Right anterior cerebral artery: Unremarkable. No occlusion or significant stenosis. No aneurysm. Right middle cerebral artery: Unremarkable. No occlusion or significant stenosis. No aneurysm. Right posterior cerebral artery: Unremarkable. No occlusion or significant stenosis. No aneurysm. Right vertebral artery: Unremarkable as visualized. Left internal carotid artery: No acute findings. Intracranial segment is patent with no significant stenosis. No aneurysm. Left anterior cerebral artery: Unremarkable. No occlusion or significant stenosis. No aneurysm. Left middle cerebral artery: Unremarkable. No occlusion or significant stenosis. No aneurysm. Left posterior cerebral artery: Unremarkable. No occlusion or significant stenosis. No aneurysm. Left vertebral artery: Unremarkable as visualized. Basilar artery: Unremarkable. No occlusion or significant stenosis. No aneurysm. IMPRESSION: Negative CT angiogram of the head. Electronically signed by: Nitza Garcia MD 04/13/24 04:31 AM Neck CTA 04/13/24 03:05 Exam(s): CTA NECK With Contrast EXAM: CT Angiography Neck With Intravenous Contrast CLINICAL HISTORY: Reason for exam: cva. TECHNIQUE: Routine carotid CT angiography protocol was performed with intravenous contrast. NASCET criteria using the distal ICAs for comparison were used for evaluation of stenoses. CTDI is 15.22 mGy and DLP is 624.62 mGy-cm. Automated exposure control was utilized for the study. A dose lowering technique was utilized adhering to the principles of ALARA. MIP reconstructed images were created and reviewed. CONTRAST: Contrast must be dictated COMPARISON: None. FINDINGS: VASCULATURE: Right common carotid artery: Unremarkable. No occlusion or significant stenosis. No dissection. Right internal carotid artery: Unremarkable. Extracranial segment is patent with no occlusion or significant stenosis. No dissection. Right external carotid artery: Unremarkable. No occlusion. Right vertebral artery: Unremarkable. No occlusion or significant stenosis. No dissection. Left common carotid artery: Unremarkable. No occlusion or significant stenosis. No dissection. Left internal carotid artery: There is a focal 80% stenosis of the proximal left ICA. No dissection. Left external carotid artery: Unremarkable. No occlusion. Left vertebral artery: Unremarkable. No occlusion or significant stenosis. No dissection. NECK: Bones/joints: Periapical lucency about tooth #30 concerning for periapical abscess. Recommend dental consult. No acute fracture. Soft tissues: Right thyroid nodule. Lung apices: Bronchitis, which may be of infectious or inflammatory etiologies. CAROTID STENOSIS REFERENCE USING NASCET CRITERIA: % ICA stenosis = (1 - narrowest ICA diameter/diameter of distal cervical ICA) x 100. Mild - <50% stenosis. Moderate - 50-69% stenosis. Severe - 70-94% stenosis. Near occlusion - 95-99% stenosis. Occluded - 100% stenosis. 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 Electronically signed by: Nitza Garcia MD 04/13/24 04:34 AM Pending Results Patient Have Any Pending Studies at Discharge: No Discharge Instructions Given to Patient (Per Discharging Provider) Mr Gomez You were brought to the hospital for increasing confusion. You were evaluated and managed for the above listed diagnoses. Some changes were made to your medications. You were started on a blood thinner called Eliquis to reduce risk of stroke from Atrial fibrillation. You were seen by the Vascular Surgeon who recommends that you take the medication Plavix along with your home aspirin 81mg daily to help with your carotid stenosis. You were also started on the medication pantoprazole to help with any bleeding You were also started on atorvastatin 40mg daily You were also started on metoprolol for heart rate control Your losartan-Hydrochlorothiazide was changed to lower dose of losartan only Stop taking fish oil and cod liver oil for now Please ensure follow up with Vascular surgeon for treatment of the carotid stenosis as discussed Please ensure follow up with Neurology, Cardiology and your Primary Doctor It was a pleasure taking care of you Total Time Total Time Spent Total Time Spent (In Minutes): 75
--- NOTE | 2024-04-15 10:10 | Pharmacy Report ---
- Date of Service April 15, 2024 - Pharmacy CVA/TIA Medication Review Medications to Prevent Stroke handout has been added to the patients discharge packet. Antiplatelet(s) * Aspirin + clopidogrel * Triple therapy with Eliquis for now. Duration to be determined by outpatient provider follow-up. Cholesterol * High intensity statin: atorvastatin 40 mg daily DVT Prophylaxis * On Eliquis Therapeutic Anticoagulation * Hx Afib/Aflutter noted, and patient is currently receiving Eliquis Type 2 Diabetes * Patient has T2DM, but per Dr. Casas, a diabetes medication with proven CVD benefit will be deferred to their outpatient provider due to familiarity with risks/benefits of such therapies. "Medications to prevent stroke" handout has already been added to the patient's discharge packet, which instructs the patient to follow up with their outpatient provider to evaluate which diabetes medication with proven CVD benefit is best for them
--- NOTE | 2024-04-16 10:39 | Pharmacy Report ---
Pharmacist Stroke Counseling - Date of Service April 16, 2024 - Scope: Pharmacy has been consulted to provide medication discharge counseling for this patient admitted with [ischemic stroke] [hemorrhagic stroke] [transient ischemic attack] as per the Pharmacist Discharge Counseling for Stroke Patients Protoc . - Medications on Discharge: Home Medications Medication Instructions Recorded Confirmed aripiprazole 2 mg tablet (Abilify) 2 mg PO DAILY 04/12/24 04/12/24 aspirin 81 mg tablet,delayed 81 mg PO DAILY 04/12/24 04/12/24 release clonidine HCl 0.1 mg tablet 0.1 mg PO AMHS 04/12/24 04/12/24 coQ10 (ubiquinol) 100 mg capsule 0 mg PO DAILY 04/12/24 04/12/24 garlic 500 mg capsule 500 mg PO DAILY 04/12/24 04/12/24 glipizide 5 mg tablet, extended 5 mg PO QAM 04/12/24 04/12/24 release 24 hr hydroxyzine HCl 50 mg tablet 50 mg PO HS 04/12/24 04/12/24 metformin 1,000 mg tablet 1,000 mg PO BIDWMEAL 04/12/24 04/12/24 venlafaxine 37.5 mg tablet 37.5 mg PO AMHS 04/12/24 04/12/24 New Rx's Medication Instructions Recorded apixaban 5 mg tablet (Eliquis) 5 mg PO BID #60 tabs 04/14/24 atorvastatin 40 mg tablet 40 mg PO QAM 30 days #30 tabs 04/14/24 losartan 25 mg tablet 25 mg PO QAM 30 days #30 tabs 04/14/24 metoprolol succinate 25 mg 25 mg PO BID 30 days #60 tabs 04/14/24 tablet,extended release 24 hr clopidogrel 75 mg tablet (Plavix) 75 mg PO DAILY #30 tabs 04/15/24 pantoprazole 40 mg tablet,delayed 40 mg PO DAILY #30 tabs 04/15/24 release - Action: The above medications, specifically ones for stroke treatment/prophylaxis, have been reviewed in detail with the patient and/or patient business services sales representative(s) prior to discharge. This includes indication, common adverse reactions, drug interactions, and medication administration. Medication counseling has been employed using the teach-back method to ensure understanding. - Outcome: The patient and/or patient business services sales representative(s) have demonstrated understanding of the medications. Additional comments: Spoke with Marcos and business services sales representative regarding his medication changes. He has picked them up from the pharmacy and begun taking. Reviewed indications of new medications (Eliquis, Plavix, aspirin, atorvastatin, metoprolol and Protonix), side effects, and CVD benefit. He expresses concern for cost of Eliquis, he did flower buncher or picker a 30 day supply, suggested he discuss this at his primary care appointment as there may be less expensive options, but it is important to not have a break in therapy. Also discussed T2DM medications with proven CVD benefit, discussed that it may be beneficial to discuss with primary care provider, but A1c was good at this time so a change may or may not be necessary. Thank you for allowing pharmacy to be involved in the care of this patient. Please call [phone] with any additional questions
[2024-04-17 10:38] LABS: Babesia microti DNA Not Detected (Not Detected)
== END 2024-04-15 10:45 | disposition home or self-care (01) | DRG 64 ==
LOC: ED 17:52 → 2S 20:48 → SUATTDRO 20:48 → 2S 22:33

== ENCOUNTER 2024-05-04 07:16 | Inpatient (IN) ==
--- NOTE | 2024-04-28 11:59 | Anesthesiology Consultation ---
Date of Service April 28, 2024 Assessment & Plan (1) Encounter for pre-operative examination: Plan - check BSG am DOS. - discharge summary 04/15/24 [facility]: "...Acute CVA, likely embolic. Acute encephalopathy. New Afib...CTA head and neck showed 80% stenosis of proximal left ICA. Brain MRI showed acute tiny infarct in the left temporal lobe without evidence of hemorrhagic transformation...evaluated by [facility] neurology on admission and recommended starting on Eliquis for his A-fib as stroke is small in size and no hemorrhagic conversion and his blood pressure was stable. Also recommended EEG as patient is having on and off confusion. ..Neurology evaluated and recommended further evaluation with LP. Pt and declined LP...Elevated trop likely demand due to Afib/CVA...COVID-positive Asymptomatic..." - Per business objects architect on 04/28/24: Positive for COVID 04/12/2024 per [facility] records. Patient denied current infectious symptoms-acceptable to proceed. Chart Review Chart Review: Acceptable Risk for Surgery and Patient NOT seen in Pre Admission Testing History Surgery Operation Date: 05/04/24 08:35 Proposed Procedures p Left Transcarotid Artery Revascularization - Osmani Jiang MD Height/Weight Height: 6 ft 1 in Weight: 70.307 kg Allergies Allergy/AdvReac Type Severity Reaction Status Date / Time bee venom protein (honey bee) Allergy Severe Difficulty Verified 04/28/24 09:47 Breathing lisinopril AdvReac Intermediate dry cough Verified 04/28/24 09:46 Medications Home Medications Medication Instructions Recorded Confirmed Last Taken aripiprazole 2 mg tablet (Abilify) 2 mg PO QAM 04/12/24 04/28/24 Unknown aspirin 81 mg tablet,delayed 81 mg PO QAM 04/12/24 04/28/24 Unknown release clonidine HCl 0.1 mg tablet 0.1 mg PO AMHS 04/12/24 04/28/24 Unknown coQ10 (ubiquinol) 100 mg capsule 100 mg PO QAM 04/12/24 04/28/24 Unknown garlic 500 mg capsule 500 mg PO QAM 04/12/24 04/28/24 Unknown hydroxyzine HCl 50 mg tablet 50 mg PO HS PRN prn 04/12/24 04/28/24 Unknown metformin 1,000 mg tablet 1,000 mg PO BIDWMEAL 04/12/24 04/28/24 Unknown venlafaxine 37.5 mg tablet 37.5 mg PO AMHS 04/12/24 04/28/24 Unknown apixaban 5 mg tablet (Eliquis) 5 mg PO BID #60 tabs 04/14/24 04/28/24 Unknown atorvastatin 40 mg tablet 40 mg PO QAM 30 days #30 tabs 04/14/24 04/28/24 Unknown losartan 25 mg tablet 25 mg PO QAM 30 days #30 tabs 04/14/24 04/28/24 Unknown metoprolol succinate 25 mg 25 mg PO BID 30 days #60 tabs 04/14/24 04/28/24 Unknown tablet,extended release 24 hr clopidogrel 75 mg tablet (Plavix) 75 mg PO QAM 04/28/24 04/28/24 Unknown pantoprazole 40 mg tablet,delayed 40 mg PO QAM 04/28/24 04/28/24 Unknown release Past Medical History Medical History (Updated 04/28/24 @ 12:31 by Halle Elizondo PA-C) Anxiety ASCVD (arteriosclerotic cardiovascular disease) Atrial fibrillation taking Eliquis CAD (coronary artery disease) s/p JAKE to mid LAD and diagonal branch of LAD in 2012 per hospitalization records 04/14/24 Carotid stenosis, left Chronic cerebral ischemia CVA (cerebral vascular accident) no deficits Depression Diabetes mellitus, type II NIDDM History of COVID-19 (~04/12/24) years ago, resolved per patient, admitted 04/2024 positive COVID History of encephalopathy per records History of pancreatitis Hypertension terminal gauger (current) use of anticoagulants MCFP (current) use of antithrombotics/antiplatelets Mild cognitive impairment Obstructive sleep apnea CPAP Prostate cancer currently having imaging, unsure of urology group, no treatment as of 04/28/2024 Past Family History Family History Mother , in her 80s with "circulatory problems" No problems noted. Father , close to 100 with congestive heart failure CHF (congestive heart failure) Other Cancer Glaucoma Hypertension Vascular disease Past Surgical History Surgical History History of cardiac cath 2 stents, [facility] ?7 years ago History of cholecystectomy Hx of fusion of cervical spine ROM WNL Social History Smoking Status: Never smoker Do You Dip or Chew Tobacco: No Hx Alcohol Use: No Hx Substance Use: No substance use type: does not use Lab Results Anesthesia Preop Results Results Anesthesia Widget: WBC 9.01 K/ul (4.8-10.8) 04/15/24 Hgb 14.5 g/dl (14.0-18.0) 04/15/24 Hct 41.1 % (42.0-52.0) L 04/15/24 Plt 218 K/uL (130-400) 04/15/24 Na 137 mmol/L (136-145) 04/15/24 K 3.5 mmol/L (3.5-5.1) 04/15/24 Cl 101 mmol/L (98-107) 04/15/24 CO2 29 mmol/L (21-32) 04/15/24 BUN 18 mg/dl (6-23) 04/15/24 Creat 0.91 mg/dl (0.6-1.4) 04/15/24 Glucose Level 110 mg/dl (70-99(Fasting)) H 04/15/24 POC Glucose 114 mg/dl (70-99) H 04/15/24 PT 11.4 Seconds (9.0-12.0) 04/13/24 PTT 36 Seconds (21-31) H 04/14/24 INR 1.1 (0.9-1.1) 04/13/24 HA1c 6.4 % (4.5-5.6) H 04/13/24 Urine Color Yellow 04/12/24 Urine Appearance Clear (Clear) 04/12/24 Urine pH 6.5 (4.5-7.5) 04/12/24 Urine Specific Barton 1.015 (1.000-1.030) 04/12/24 Urine Protein Negative (Negative) 04/12/24 Urine Glucose (UA) Negative (Negative) 04/12/24 Urine Ketones Negative (Negative) 04/12/24 Urine Blood Negative (Negative) 04/12/24 Urine Nitrite Negative (Negative) 04/12/24 Urine Bilirubin Negative (Negative) 04/12/24 Urine Urobilinogen Negative (Negative) 04/12/24 Urine Leukocyte Esterase Negative (Negative) 04/12/24 COVID-19 PCR POSITIVE (Negative) A 04/12/24 Testing Electrocardiogram Date: 04/14/24 Afib with premature ventricular or aberrantly conducted complexes, rate 84 bpm Nonspecific T wave abnormality Chest X-Ray Date: 04/12/24 *1view* No acute process. Echocardiogram Date: 04/13/24 EF 60-65% Normal LV wall motion Moderate cLVH Mildly dilated LA Mild aortic valve sclerosis, without significant aortic valvular stenosis Doppler findings do not suggest pulmonary hypertension Other Testing Brain MRI 04/13/24 There is a tiny acute ischemic a noted within the left temporal lobe without evidence of hemorrhagic transformation. Head and neck CTA 04/13/[address] angiogram of the head. There is a 80% stenosis of the proximal left ICA.
[~2024-05-04 07:16] MED LIST changes: -AMLO2.5T PO; -ASPI1TAB83 PO; -CLOP1TAB5 PO; -CPR500 PO; -GLC/500 PO; -KLN5 PO; +LARYING-O-JET KIT (LTA) ONE; +LIDOCAINE 2% 2 ML VIAL/AMP(20MG/ML) INFIL ONE; -LOSA50TA54 PO; -LPT/40 PO; -NTRGSL/4 SL; -PROP80CA7 PO; +PROPOFOL IV EMULSION 10 MG/ML 20 ML VIAL IV ONE; +ROCURONIUM BROMIDE 10 MG/ML 5 ML VIAL IV ONE; -SERT1TAB92 PO; +fentaNYL citrate PF 100 MCG/2 ML VIAL ONE
--- NOTE | 2024-05-04 07:44 | History & Physical Bridge Note ---
Date of Service May 04, 2024 History & Physical Bridge Note I have examined the patient, reviewed the History & Physical and in the interval since the performance of the History & Physical I have noted the following changes of clinical significance: no changes noted
--- NOTE | 2024-05-04 07:44 | History & Physical Report ---
Date of Service May 04, 2024 History of Present Illness Primary Care Provider: Alejandra Velazquez MD Chief Complaint rm#2 here for hosp f/u to discuss TCAR. Stopped statin though Subjective I the pleasure of seeing Marcos today for follow-up. As you know he is a 68-year-old gentleman who was admitted for increased confusion. He was found to have acute findings on his MRI of his brain and a left internal carotid artery stenoses. He also had COVID at that time. Since then he has recovered nicely from his symptoms. He is back to baseline. He was never symptomatic from his COVID. Review of Systems 10 systems reviewed.-year-old negative except per the HPI. Objective Vitals & Measurements HR: 76 (Monitored) BP: 140/88 SpO2: 98% Physical Exam On exam he is awake alert and oriented x 3. He is in no apparent distress. Blood pressure is 140/88 in the right and 142/90 on the left. And neck within normal limits he does have a left carotid bruit. His radials are +2 bilaterally. Heart irregular rhythm. Lungs were clear to auscultation. Abdominal exam was benign. There is no widened aortic pulse. Femorals and pedal's are all +2 bilaterally. Neurologic exam is intact motor and sensory function. Assessment/Plan 1. Stenosis of carotid artery At this point with the symptoms and greater than 80% narrowing of his left internal carotid artery recommended intervention. We went over the risks o ptions and benefits of endarterectomy versus TCAR. He is elected to go ahead with a TCAR. The patient is understood the risks options and benefits which were documented in the consent form and agreed to go ahead with the procedure. Will keep you informed as to his results. Thank you very much for letting us participate in the care of this patient. Sincerely, Watson Jiang MD Attestation I have personally spent ___25__ minutes performing [id number] and [id number] activities on this date of service. Activities Include: _x_ review of the medical record __x obtaining a history __x physical exam/evaluation __ review labs __ review radiology reports __x counseling/educating patient/family/caregiver __ discussion/referral to other healthcare __x documenting care in the medical record __ independent interpretation of results __ communication of results to patient/family/caregiver __ coordination of care Signature Line Electronic Signature on File Osmani Jiang MD Author Signature Dt/Tm: 04/22/2024 10:27 AM Senior Assistant Manager Severiano Ken [facility] [address], [address] [place] [address] EJS Result Type: .Outpt Ltr Date of Service: April 22, 2024 10:15 EDT Authorization Status: Final Subject: Follow Up Visit Author or Import Date: MD Deidre, Osmani Ho on April 22, 2024 10:27 EDT Verified By: MD Jiang Eugene J on April 22, 2024 10:27 EDT Encounter info: [id number], [place] [id number], Clinic, 04/22/2024 - 04/22/2024 Allergies Allergy/AdvReac Type Severity Reaction Status Date / Time bee venom protein (honey bee) Allergy Severe Difficulty Verified 05/04/24 07:38 Breathing lisinopril AdvReac Intermediate dry cough Verified 05/04/24 07:38 Home Medications Medication Instructions Recorded Confirmed Type aripiprazole 2 mg tablet (Abilify) 2 mg PO QAM 04/12/24 04/28/24 History aspirin 81 mg tablet,delayed 81 mg PO QAM 04/12/24 04/28/24 History release clonidine HCl 0.1 mg tablet 0.1 mg PO AMHS 04/12/24 04/28/24 History coQ10 (ubiquinol) 100 mg capsule 100 mg PO QAM 04/12/24 04/28/24 History garlic 500 mg capsule 500 mg PO QAM 04/12/24 04/28/24 History hydroxyzine HCl 50 mg tablet 50 mg PO HS PRN prn 04/12/24 04/28/24 History metformin 1,000 mg tablet 1,000 mg PO BIDWMEAL 04/12/24 04/28/24 History venlafaxine 37.5 mg tablet 37.5 mg PO AMHS 04/12/24 04/28/24 History apixaban 5 mg tablet (Eliquis) 5 mg PO BID #60 tabs 04/14/24 04/28/24 Rx atorvastatin 40 mg tablet 40 mg PO QAM 30 days #30 tabs 04/14/24 04/28/24 Rx losartan 25 mg tablet 25 mg PO QAM 30 days #30 tabs 04/14/24 04/28/24 Rx metoprolol succinate 25 mg 25 mg PO BID 30 days #60 tabs 04/14/24 04/28/24 Rx tablet,extended release 24 hr clopidogrel 75 mg tablet (Plavix) 75 mg PO QAM 04/28/24 04/28/24 History pantoprazole 40 mg tablet,delayed 40 mg PO QAM 04/28/24 04/28/24 History release Past Med/Surg History Problem List Encounter for pre-operative examination ASCVD (arteriosclerotic cardiovascular disease) Chronic cerebral ischemia Carotid stenosis, left Acute CVA (cerebrovascular accident) 04/13/24 Acute encephalopathy 04/13/24 COVID (Acute) 04/13/24 Elevated troponin (Acute) 04/13/24 New onset a-fib (Acute) 04/13/24 Confusion (Acute) 04/12/24 Mild cognitive impairment Abnormal colonoscopy LISBETH on CPAP UTI (urinary tract infection) (Acute) 10/10/14 Mood disorder (Acute) MDD (major depressive disorder) (Acute 10/10/14) Anxiety (Acute) Hypertension (Chronic) Diabetes (Chronic) Medical History CAD (coronary artery disease) s/p JAKE to mid LAD and diagonal branch of LAD in 2012 per hospitalization records 04/14/24 History of encephalopathy per records 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 Prostate cancer currently having imaging, unsure of urology group, no treatment as of 04/28/2024 Anxiety Depression Mild cognitive impairment History of pancreatitis History of COVID-19 (~04/12/24) years ago, resolved per patient, admitted 04/2024 positive COVID Obstructive sleep apnea CPAP Atrial fibrillation taking Eliquis Hypertension Diabetes mellitus, type II NIDDM Chronic cerebral ischemia Carotid stenosis, left ASCVD (arteriosclerotic cardiovascular disease) CVA (cerebral vascular accident) no deficits Surgical History Hx of fusion of cervical spine ROM WNL History of cholecystectomy History of cardiac cath 2 stents, [facility] ?7 years ago Family History Mother , in her 80s with "circulatory problems" No problems noted. 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 Other Information That Helps Us Care for You: No Feels Safe at Home: Yes Safety Concerns: Feels Safe At This Time Assistive Devices: CPAP and Glasses Results & Data Vital Signs (Past 12 Hours) Vital Signs Temp Pulse Resp BP BP Pulse Ox O2 Del Method 05/04/24 07:39 36.5 C 98 H 20 168/121 H 173/114 H 95 Room Air
[2024-05-04] MEDS: LACTATED RINGER'S 1,000 ML IV SCH ×2 (08:03→12:30)
[2024-05-04] MEDS ORDERED: HYDROmorphone INJ 1 MG/ML SYRINGE IV PRN (08:34)
[2024-05-04] MEDS ORDERED: ONDANSETRON INJ 2 MG/ML 2 ML VIAL IV PRN (08:34)
[2024-05-04] MEDS ORDERED: ePHEDrine sulfate 50 MG/ML AMP IV PRN (08:34)
[2024-05-04] MEDS ORDERED: ATROPINE SULFATE 0.1 MG/ML 10ML SYR IV PRN (08:34)
[2024-05-04] MEDS ORDERED: fentaNYL citrate PF 100 MCG/2 ML VIAL IV PRN (08:34)
--- NOTE | 2024-05-04 08:34 | Anesthesia Procedure Note ---
Anesthesia Procedure Note Arterial Line Note Patient medical history, medications, allergies and vitals reviewed. Consent: Risk / Benefits Reviewed With: PT / POA / Parent / Guardian, Accepts Plan, Informed Consent Obtained and All Questions Answered Monitors attached: Blood Pressure, CO2, EKG and Pulse Oximetry Time out completed: Yes Premedication: None Laterality: Left Location: Radial Hand hygeine: Soap and water and Alcohol based hand rub Equipment/Supplies: Cap, Mask and Sterile gloves Skin prep: 70% alcohol Local medication: 1% Lidocaine (ml) Ultrasound used: Yes US equipment and supplies: Sterile Gel and Sterile Probe Cover Attempts: 2 Procedure Summary: 20 gauge angiocath advanced until return of bright red blood. Catheter threaded using seldinger technique with return of pulsatile, bright red blood. Catheter secured with tape and covered with occlusive dressing. Waveform consistent with correct arterial placement. After placement, normal perfusion was observed distal to the site of catheter placement. Post-Procedure: Pt hemodynamically stable, Pt tolerates well and No complication Anesthesia Charges Arterial Line A Line Charges: 63530 Insert Art line [facility]/[place]
[2024-05-04] MEDS: ceFAZolin 2000MG 2,000 MG/15 ML SYR IV SCH ×2 (08:36→16:33)
[2024-05-04] MEDS ORDERED: HEPARIN SOD (PORCINE) 1000 UNIT/ML ONE ×2 (09:26→09:34)
[2024-05-04] MEDS ORDERED: ePHEDrine sulfate 50 MG/5 ML SYR ONE (09:34)
[2024-05-04] MEDS ORDERED: fentaNYL citrate PF 100 MCG/2 ML VIAL ONE (09:37)
[2024-05-04] MEDS ORDERED: GLYCOPYRROLATE 0.2 MG/ML VIAL ONE (09:59)
[2024-05-04] MEDS ORDERED: PROTAMINE SULFATE 10 MG/ML 5 ML VIAL IV ONE (09:59)
[2024-05-04] MEDS ORDERED: SUGAMMADEX SODIUM 200 MG/2 ML VIAL IV ONE (10:00)
[2024-05-04] MEDS: THROMBIN FOR SOLN 20000 UNIT KIT ONE (10:01)
[2024-05-04] MEDS: GELATIN SPONGE SZ 100 ONE (10:01)
[2024-05-04] MEDS: VISIPAQUE IV PRN (10:02)
[2024-05-04] MEDS: SURGICEL ABSORB HEMOSTAT 2IN X 14IN TOP ONE (10:02)
[2024-05-04] MEDS: ceFAZolin 330 MG/ML 1 GM VIAL ONE (10:03)
[2024-05-04] MEDS: BUPIVACAINE/EPINEPHRINE 0.5% MPF 1:200,000 30 ML VIAL ONE (10:03)
--- NOTE | 2024-05-04 10:18 | Procedure Note ---
Angiogram Post Procedure Fluoroscopy Time (minutes): 2.4 Radiation (mGy): 35 Contrast: 6 Post Operative Report Pre & Post Diagnosis Operation Date: 05/04/24 08:30 Pre-Op Diagnosis: Left Carotid Artery Stenosis Post-Op Diagnosis: Left Carotid Artery Stenosis I identified the patient and participated in the time-out.: Yes Procedure Operation Date: 05/04/24 08:30 Actual Procedures p Left Transcarotid Artery Revascularization(Left), Ultrasound localization of right common femoral vein - Osmani Jiang MD Surgeon Osmani Jiang MD Bias Machine Operator [place],PAC Estimated Blood Loss 20 Findings Consistent with Post-Op Diagnosis Specimens none Anesthesia Type General Complications none Disposition Accompanied Patient To Recovery: No Disposition: Recovery Room Indications This is a 68-year-old male who had an episode of confusion and disorientation. He was found to have subacute infarcts in the left hemisphere and a severe stenosis of his left internal carotid artery. Intervention is recommended. We discussed TCAR versus endarterectomy and he is elected to go ahead with a TCAR approach. I have discussed the risks options and benefits of the procedure with the patient. The patient understands the risks options and benefits and agrees to the procedure. Description of Procedure The patient was taken to the operating room and placed in supine position. After general anesthesia was accomplished the groins and left side of the neck and chest were prepped and draped in a sterile manner. Timeout was performed and the patient was identified. A transverse incision was made just above the clavicle between the heads of the sternocleidomastoid. This is carried down to where the common carotid artery was identified. It was isolated. It was slung with umbilical tape. Next the U stitch was placed in the common carotid artery with a 5-0 Prolene suture. Patient was given 9000 heparin at that time. Ultrasound was then used to localize the right common femoral vein. The vein was patent and compressed easily. Under ultrasound guidance the right common femoral vein was punctured and the venous sheath was inserted. This was aspirated and flushed with heparinized saline. ACT at that time was 232. Another 2000 heparin was given with a repeat ACT of 250. Using micropuncture technique the common carotid artery was punctured. The micro sheath was inserted to 3 cm. Injection was then done showing the bifurcation. There was a significant lesion seen at the origin of the internal carotid artery on the left side. We then inserted the J-wire and left and short of the lesion. The micro sheath was removed and the TCAR sheath was inserted. Once it was in place and held against the artery it was sutured to the chest wall and the incision edge. We then flushed the tubing appropriately. The venous return to was clamped onto the TCAR sheath. It was flushed through and then attached to the venous inflow sheath in the left groin. Sheath was checked for flow. The saline cleared nicely. The common carotid artery was then clamped. Flow reversal was instituted. We inserted a 5.5 x 35 balloon backloaded on the wire. The wire was passed through the lesion into the petrous portion of the internal carotid. The 5.5 balloon was then advanced to the lesion. Lesion was then predilated with a 5.5 mm balloon. Balloon was removed. We then inserted the 9/7 x 40 stent. This was deployed across the lesion without difficulty. The catheter was removed. The carotid was allowed to go 2 minutes with flow reversal. Completion angiogram was done at that time which showed a widely patent carotid stent. At that point the common carotid artery was unclamped. The venous return tubing was clamped and removed from the TCAR sheath. The blood was allowed to flow back into the venous system. The TCAR sheath was then removed and the 5-0 Prolene suture securely tied. Hemostasis was noted of the puncture site. The patient was given 25 mg of protamine. Wound was irrigated with Ancef solution. Adequate hemostasis was obtained of the wound.Once this was completed the sheath was pulled from the groin and pressure was applied. Once this was noted the wound was closed in usual fashion using a 3-0 Vicryl suture for the subcutaneous layer and a 4-0 subcuticular Vicryl suture for the skin edges. Dermabond was used for dressing.The patient left the operation room in satisfactory condition and tolerated the procedure well. All needle and sponge counts were correct at the end of the procedure. Coral Pereyra Pac assisted due to lack of resident availability and was necessary for positioning, draping, retraction, wound closure deep layers, subcutaneous tissue, and skin closure and was necessary for assisting with the case. I attest to the content of the Intraoperative Record and any orders documented therein. Any exceptions are noted below.
--- NOTE | 2024-05-04 11:15 | Anesthesiology Progress Note ---
Date of Service May 04, 2024 Anesthesia Post Procedure Vital Signs Vital Signs: Temp Pulse Pulse Resp BP BP Pulse Ox 05/04/24 11:10 36.4 C L 99 H 12 163/94 H 93 05/04/24 11:00 99 H 12 161/96 H 95 05/04/24 10:50 84 12 131/94 93 05/04/24 10:40 100 H 13 153/96 H 95 05/04/24 10:30 112 H 10 L 162/101 H 96 05/04/24 10:28 36.4 C L 108 H 12 168/91 H 95 05/04/24 07:39 36.5 C 98 H 20 168/121 H 173/114 H 95 O2 Del Method O2 Flow Rate 05/04/24 11:10 Room Air 0 05/04/24 11:00 Oxymask 4 05/04/24 10:50 Oxymask 6 05/04/24 10:40 Oxymask 6 05/04/24 10:30 Oxymask 8 05/04/24 10:28 Oxymask 8 05/04/24 07:39 Room Air Transfer of Care Handoff Completed per policy Notes Mental Status: alert / awake / arousable and participated in evaluation Patient Amnestic to Procedure: Yes Nausea / Vomiting: adequately controlled Pain: adequately controlled Airway Patency, RR, SpO2: stable & adequate BP & HR: stable & adequate Hydration State: stable & adequate Anesthetic Complications: no major complications apparent and Pt Satisfied with anesthetic care
[2024-05-04] MEDS ORDERED: STAT IV Infusion **Titration per Protocol STA ×2 (12:25→13:09)
[2024-05-04] MEDS ORDERED: PHENYLEPHRINE/NSS 25 MG/250 ML BAG IV PRN (12:25)
[2024-05-04] MEDS ORDERED: hydrOXYzine HCl 25 MG TAB PO PRN (12:25)
--- NOTE | 2024-05-04 12:40 | Critical Care Consultation ---
Date of Consultation May 04, 2024 Assessment & Plan (1) S/P vascular surgery: Patient admitted to the ICU status post LEFT-sided TCAR procedure in a patient with findings of carotid stenosis with recent CVA. Patient doing well postoperatively. There is a small area of possible developing hematoma just superior to the LEFT-sided anterior neck incision site. Area is soft to palpation without extension more superiorly. No stridor on exam. Vascular service was contacted. Will continue to ice the area and monitor for any expansion. (2) Hypertension: Patient with significant hypertension postoperatively. He is on home medications which were held secondary to preoperative phase. Ordered labetalol to be used with systolics in the 180s to 200s currently. Confirmed with vascular surgery and will restart the patient's home medications now. He is comfortable with blood pressures running somewhat high, but sustained pressures in the 180s to 200s we will need intervention. Nursing to update communication order. Will now start the patient on nicardipine infusion due to persistently elevated systolic blood pressures over 180. Goal systolic blood pressures under 180 at this time. (3) Diabetes: Insulin sliding scale. Hold home meds. (4) LISBETH on CPAP: Will need to confirm his home CPAP therapy and initiate. (5) Carotid stenosis, left: Status post LEFT-sided TCAR (6) Chronic cerebral ischemia: Hopefully with improvement status post LEFT-sided TCAR. (7) ASCVD (arteriosclerotic cardiovascular disease): Restart ASCVD Rx now. (8) Atrial fibrillation: Continue with rate control and anticoagulation when able. (9) assisted (current) use of antithrombotics/antiplatelets: Monitor for signs and symptoms of bleeding status post intervention. (10) CAD (coronary artery disease): CVD Rx when able. Plan CRITICAL CARE TIME I have personally spent 44 minutes of critical care time in the direct management of this patient. This is a life/limb threatening event. This includes time spent evaluating patient, direct bedside care, chart review, placing orders, interpretation of diagnostic studies, discussion with consultants, patient, and family members, as well as other required patient management ac tivities. This time is exclusive of all separately billable procedures, and teaching time and separate from and in addition to any other critical care service time. History of Present Illness Reason for Consultation: post LEFT sided TCAR Requesting Physician: Dr. Jiang Attending Physician: Osmani Jiang MD History of Present Illness Patient is a 68-year-old male with a significant past medical history of hypertension, hyperlipidemia, recent diagnosis of A-fib anticoagulated on Eliquis, coronary artery disease status post CABG, and recent strokes resulting in confusion who presents to the ICU status post LEFT-sided TCAR procedure. Patient reports that he is having some pain with swallowing, but is able to tolerate secretions and fluid. He denies any complaints of shortness of breath or chest pain. No palpitations, dizziness, lightheadedness, vision changes, or numbness/weakness to the extremities. Allergies Allergy/AdvReac Type Severity Reaction Status Date / Time bee venom protein (honey bee) Allergy Severe Difficulty Verified 05/04/24 07:38 Breathing lisinopril AdvReac Intermediate dry cough Verified 05/04/24 07:38 Home Medications Medication Instructions Recorded Confirmed Type aripiprazole 2 mg tablet (Abilify) 2 mg PO QAM 04/12/24 05/04/24 History aspirin 81 mg tablet,delayed 81 mg PO QAM 04/12/24 05/04/24 History release clonidine HCl 0.1 mg tablet 0.1 mg PO AMHS 04/12/24 05/04/24 History coQ10 (ubiquinol) 100 mg capsule 100 mg PO QAM 04/12/24 05/04/24 History garlic 500 mg capsule 500 mg PO QAM 04/12/24 05/04/24 History hydroxyzine HCl 50 mg tablet 50 mg PO HS PRN prn 04/12/24 05/04/24 History metformin 1,000 mg tablet 1,000 mg PO BIDWMEAL 04/12/24 05/04/24 History venlafaxine 37.5 mg tablet 37.5 mg PO AMHS 04/12/24 05/04/24 History apixaban 5 mg tablet (Eliquis) 5 mg PO BID #60 tabs 04/14/24 05/04/24 Rx atorvastatin 40 mg tablet 40 mg PO QAM 30 days #30 tabs 04/14/24 05/04/24 Rx losartan 25 mg tablet 25 mg PO QAM 30 days #30 tabs 04/14/24 05/04/24 Rx metoprolol succinate 25 mg 25 mg PO BID 30 days #60 tabs 04/14/24 05/04/24 Rx tablet,extended release 24 hr clopidogrel 75 mg tablet (Plavix) 75 mg PO QAM 04/28/24 05/04/24 History pantoprazole 40 mg tablet,delayed 40 mg PO QAM 04/28/24 05/04/24 History release Patient History Medical History CAD (coronary artery disease) s/p JAKE to mid LAD and diagonal branch of LAD in 2013 per hospitalization records 04/14/24 History of encephalopathy per records [facility] (current) use of antithrombotics/antiplatelets [facility] (current) use of anticoagulants Prostate cancer currently having imaging, unsure of urology group, no treatment as of 04/28/2024 Anxiety Depression Mild cognitive impairment History of pancreatitis History of COVID-19 (~04/12/24) years ago, resolved per patient, admitted 04/2024 positive COVID Obstructive sleep apnea CPAP Atrial fibrillation taking Eliquis Hypertension Diabetes mellitus, type II NIDDM Chronic cerebral ischemia Carotid stenosis, left ASCVD (arteriosclerotic cardiovascular disease) CVA (cerebral vascular accident) no deficits Surgical History (Updated 05/04/24 @ 12:39 by Alejandro Calvert PA-C) Hx of fusion of cervical spine ROM WNL History of cholecystectomy History of cardiac cath 2 stents, [facility] ?7 years ago Family History Mother , in her 80s with "circulatory problems" No problems noted. 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 Other Information That Helps Us Care for You: No Feels Safe at Home: Yes Safety Concerns: Feels Safe At This Time Assistive Devices: CPAP and Glasses Review of Systems Review of Systems: A complete 10 point review of systems was reviewed with the patient with pertinent positives and negatives as per history of present illness. All else were negative. Physical Exam Physical Exam: VITAL SIGNS - Vital signs and nursing notes were reviewed. GENERAL - 68-year-old male appearing his stated age who is in no acute distress. Communicates well with provider and answers questions appropriately. SKIN - Post operative LEFT sided TCAR incision site clean, dry, and intact with some moderate edema noted in the superior aspect of the incision. No bleeding. Access point in the RIGHT groin noted to have some mild saturation of the dressing. HEAD - NC/AT. EYES - PERRL with EOMI bilaterally. Sclera anicteric. EARS - No deformities of external structures noted on gross examination bilaterally. NOSE - Midline and without cyanosis. No epistaxis or purulent drainage noted. MOUTH/OROPHARYNX - Without perioral cyanosis. Buccal mucosa pink and moist and without leukoplakia. Tongue midline with equal elevation of palate bilaterally. NECK - Post-op incision site as above. Neck with FROM. Supple to palpation. No nuchal rigidity. No stridor appreciated. LUNGS - Chest wall symmetric without accessory muscle use, intercostals retractions, or central cyanosis. Normal vesicular breath sounds CTA B/L. No wheezes, rales, or rhonchi appreciated. CARDIAC - RRR with S1/S2. No murmur, rubs, or gallops appreciated. ABDOMEN - Abdominal contour obese without pulsations or visible masses. BS normoactive all four quadrants. No tenderness, palpable masses, hepatosplenomegaly, or ascites noted. EXTREMITIES - No clubbing or peripheral cyanosis. No pretibial edema present. +3/5 radial and dorsalis pedis pulses palpated throughout. +5/5 strength noted in UE/LE bilaterally. NEUROLOGIC - Cranial nerves II through XII grossly intact. Sensory intact to light touch throughout. PSYCH - A&Ox3 and cooperates fully with examiner. Pt is very pleasant and interacts well with examiner. Results & Data Results & Data Vital Signs (Past 12 Hours) Vital Signs Temp Pulse Pulse Pulse Resp BP BP 05/04/24 12:10 05/04/24 12:03 94 H 22 05/04/24 12:00 165/115 H 05/04/24 12:00 165/115 H 05/04/24 11:54 175/109 H 05/04/24 11:48 85 16 05/04/24 11:45 99 H 13 05/04/24 11:30 99 H 12 164/109 H 05/04/24 11:20 97 H 12 174/109 H 05/04/24 11:10 36.4 C L 99 H 12 163/94 H 05/04/24 11:00 99 H 12 161/96 H 05/04/24 10:50 84 12 131/94 05/04/24 10:40 100 H 13 153/96 H 05/04/24 10:30 112 H 10 L 162/101 H 05/04/24 10:28 36.4 C L 108 H 12 168/91 H 05/04/24 07:39 36.5 C 98 H 20 168/121 H BP Pulse Ox O2 Del Method O2 Flow Rate 05/04/24 12:10 Room Air 05/04/24 12:03 87 L 05/04/24 12:00 05/04/24 12:00 Room Air 05/04/24 11:54 05/04/24 11:48 94 05/04/24 11:45 95 05/04/24 11:30 93 Room Air 0 05/04/24 11:20 93 Room Air 0 05/04/24 11:10 93 Room Air 0 05/04/24 11:00 95 Oxymask 4 05/04/24 10:50 93 Oxymask 6 05/04/24 10:40 95 Oxymask 6 05/04/24 10:30 96 Oxymask 8 05/04/24 10:28 95 Oxymask 8 05/04/24 07:39 173/114 H 95 Room Air Coding Level of Care Code 77365 CRITICAL CARE 1ST 30-74M Diagnoses S/P vascular surgery Z98.890 Hypertension I10 Diabetes E11.9 LISBETH on CPAP G47.33 Carotid stenosis, left I65.22 Chronic cerebral ischemia I67.82 ASCVD (arteriosclerotic cardiovascular disease) I25.10 Atrial fibrillation I48.91 assisted (current) use of antithrombotics/antiplatelets Z79.02 CAD (coronary artery disease) I25.10
[2024-05-04] MEDS: LABETALOL HCL IV 5 MG/ML 20ML IV STA (13:11)
[2024-05-04] MEDS: cloNIDine HCL 0.1 MG TAB PO STA (13:13)
[2024-05-04] MEDS: LOSARTAN POTASSIUM 25 MG TAB PO STA (13:13)
[2024-05-04] MEDS: METOPROLOL SUCC 25MG EXT REL TAB PO STA (13:13)
[2024-05-04] MEDS: niCARdipine 25 MG in SODIUM CHLORIDE 0.9% 240 ML IV SCH (13:44)
[2024-05-04] MEDS: metFORMIN HCL 500 MG TAB PO SCH (16:34)
[2024-05-04] MEDS: oxyCODONE/ACETAMINOPHEN 5mg/325mg TAB PO PRN (20:24)
[2024-05-04] MEDS: cloNIDine HCL 0.1 MG TAB PO SCH (20:28)
[2024-05-04] MEDS: VENLAFAXINE HCL 37.5 MG TAB PO SCH (20:28)
[2024-05-04] MEDS: METOPROLOL SUCC 25MG EXT REL TAB PO SCH (20:29)
[2024-05-05] MEDS: ATORVASTATIN 40 MG TAB PO SCH (08:04)
[2024-05-05] MEDS: APIXABAN 5 MG TABLET PO SCH (08:04)
[2024-05-05] MEDS: ARIPIprazole 1 MG/ML ORAL SOLN 150 ML BTL PO SCH (08:04)
[2024-05-05] MEDS: LOSARTAN POTASSIUM 25 MG TAB PO SCH (08:05)
[2024-05-05] MEDS: CLOPIDOGREL BISULFATE 75 MG TAB PO SCH (08:05)
[2024-05-05] MEDS: ASPIRIN 81 MG ECTAB PO SCH (08:05)
[2024-05-05] MEDS: PANTOprazole 40 MG TAB PO SCH (08:05)
[2024-05-05] MEDS ORDERED: NON-FORMULARY MEDICATION (Garlic 500 mg Capsule) PO SCH (09:00)
[2024-05-05] MEDS ORDERED: NON-FORMULARY MEDICATION (Coq10 (Ubiquinol) 100 mg Capsule) PO SCH (09:00)
[2024-05-05] MEDS ORDERED: ARIPIprazole 1 MG/ML ORAL SOLN 150 ML BTL PO SCH (09:00)
--- NOTE | 2024-05-05 09:26 | Critical Care Progress Note ---
Date of Service May 05, 2024 Assessment & Plan (1) S/P vascular surgery: Plan: Patient admitted to the ICU status post LEFT-sided TCAR procedure in a patient with findings of carotid stenosis with recent CVA. Patient doing well postoperatively. There is significant expansion of hematoma. (2) Hypertension: Plan: Patient with significant hypertension postoperatively. He is on home medica tions which were held secondary to preoperative phase. Nicardipine infusion is now off. Will defer antihypertensive regimen to vascular surgical team. Suspect discharge later today. (3) Diabetes: Plan: Insulin sliding scale. Hold home meds. (4) LISBETH on CPAP: Plan: Continue CPAP at night. (5) Carotid stenosis, left: Plan: Status post LEFT-sided TCAR (6) Chronic cerebral ischemia: Plan: Hopefully with improvement status post LEFT-sided TCAR. (7) ASCVD (arteriosclerotic cardiovascular disease): Plan: Restart ASCVD Rx now. (8) Atrial fibrillation: Plan: Continue with rate control and anticoagulation when able. (9) retirement (current) use of antithrombotics/antiplatelets: Plan: Monitor for signs and symptoms of bleeding status post intervention. (10) CAD (coronary artery disease): Plan: CVD Rx when able. Plan Patient likely to discharge home today. Admission and Anticipated Discharge Date Admission Date: May 04, 2024 Subjective Patient denies any major complaints today aside from some mild soreness around the left TCAR site. Was briefly on nicardipine infusion this morning. Review of Systems Review of Systems: All systems reviewed & are unremarkable except as noted in HPI & below Physical Exam Physical Exam: VITAL SIGNS - Vital signs and nursing notes were reviewed. GENERAL - 68-year-old male appearing his stated age who is in no acute distress. Communicates well with provider and answers questions appropriately. SKIN - Post operative LEFT sided TCAR incision site clean, dry, and intact with some moderate edema noted in the superior aspect of the incision. No bleeding. Access point in the RIGHT groin noted to have some mild saturation of the dressing. HEAD - NC/AT. EYES - PERRL with EOMI bilaterally. Sclera anicteric. EARS - No deformities of external structures noted on gross examination bilaterally. NOSE - Midline and without cyanosis. No epistaxis or purulent drainage noted. MOUTH/OROPHARYNX - Without perioral cyanosis. Buccal mucosa pink and moist and without leukoplakia. Tongue midline with equal elevation of palate bilaterally. NECK - Post-op incision site as above. Neck with FROM. Supple to palpation. No nuchal rigidity. No stridor appreciated. LUNGS - Chest wall symmetric without accessory muscle use, intercostals retractions, or central cyanosis. Normal vesicular breath sounds CTA B/L. No wheezes, rales, or rhonchi appreciated. CARDIAC - RRR with S1/S2. No murmur, rubs, or gallops appreciated. ABDOMEN - Abdominal contour obese without pulsations or visible masses. BS normoactive all four quadrants. No tenderness, palpable masses, hepatosplenomegaly, or ascites noted. EXTREMITIES - No clubbing or peripheral cyanosis. No pretibial edema present. +3/5 radial and dorsalis pedis pulses palpated throughout. +5/5 strength noted in UE/LE bilaterally. NEUROLOGIC - Cranial nerves II through XII grossly intact. Sensory intact to light touch throughout. PSYCH - A&Ox3 and cooperates fully with examiner. Pt is very pleasant and interacts well with examiner. Results & Data Results & Data Vital Signs (Past 12 Hours) Vital Signs Pulse Resp BP Pulse Ox O2 Del Method O2 Flow Rate 05/05/24 07:52 162/84 H 05/05/24 07:45 89 24 93 05/05/24 07:42 86 15 93 05/05/24 07:36 77 05/05/24 07:15 74 18 94 Room Air 05/05/24 07:00 122/77 05/05/24 07:00 69 17 94 CPAP 05/05/24 06:00 76 18 95 05/05/24 06:00 128/72 05/05/24 06:00 128/72 05/05/24 05:48 86 24 95 05/05/24 05:18 77 19 94 05/05/24 05:06 76 14 95 05/05/24 04:54 75 15 95 05/05/24 04:33 73 19 94 05/05/24 04:15 71 12 96 05/05/24 04:03 82 18 94 05/05/24 04:00 142/95 H 05/05/24 04:00 142/95 H 05/05/24 03:51 77 18 93 05/05/24 03:49 66 20 95 2 05/05/24 03:06 65 17 93 05/05/24 03:01 139/83 05/05/24 03:01 139/83 05/05/24 03:01 139/83 05/05/24 03:01 139/83 05/05/24 02:54 78 14 95 05/05/24 02:00 104/58 L 05/05/24 02:00 104/58 L 05/05/24 02:00 76 12 94 05/05/24 01:00 80 19 92 05/05/24 01:00 104/58 L 05/05/24 01:00 104/58 L 05/05/24 00:02 78 16 91 05/05/24 00:00 100/66 05/05/24 00:00 100/66 05/05/24 00:00 100/66 05/04/24 23:53 77 18 89 L 05/04/24 23:02 66 21 94 05/04/24 23:00 101/60 05/04/24 23:00 101/60 05/04/24 22:56 68 21 93 05/04/24 22:11 61 19 93 05/04/24 22:00 119/75 05/04/24 22:00 119/75 05/04/24 21:53 66 20 93 05/04/24 21:30 76 20 93 2 Coding Level of Care Code 56740 SUB INP/OBS CARE 2/35MIN Diagnoses S/P vascular surgery Z98.890 Hypertension I10 Diabetes E11.9 LISBETH on CPAP G47.33 Carotid stenosis, left I65.22 Chronic cerebral ischemia I67.82 ASCVD (arteriosclerotic cardiovascular disease) I25.10 Atrial fibrillation I48.91 retirement (current) use of antithrombotics/antiplatelets Z79.02 CAD (coronary artery disease) I25.10
--- NOTE | 2024-05-05 09:42 | Surgery Progress Note ---
Date of Service May 05, 2024 Assessment & Plan (1) Internal carotid artery stent present: Plan: Pt now POD #1 after uncomplicated L TCAR. Has been hypertensive post op, however, baseline BP is severely hypertensive. Was on nicardipine drip last evening, stopped last night, restarted this AM d/t SBP >180. Advised RN to stop it again, since he is severely hypertensive at baseline. R groin venous puncture without hematoma to indicate significant bleeding from vein, however, pressure held manually x 10 min and new dressing placed. If pt without significant further bleeding, likely will d/c home today. Admission and Anticipated Discharge Date Admission Date: May 04, 2024 Subjective 68 yo m POD #1 after uncomplicated L TCAR, seen in f/u today. Pt states mild pain/discomfort L neck incision, and sore throat. Otherwise no complaints. Taking PO well and voiding without problems. Review of Systems Review of Systems: All systems reviewed & are unremarkable except as noted in HPI & below Physical Exam Constitutional: WD/WN, vitals as above not in distress Neck: trachea midline L supraclavicular incision C/D/I, +local ecchymosis, mild edema, tenderness. Respiratory: normal respiratory effort, lungs clear to auscultation Auscultation: + diminished lung sounds Cardiovascular: Rate/Rhythm: + irregularly irregular Vessels: femoral pulses present, posterior tibial pulses present, dorsalis pedis pulses present and radial pulses present; + abnormal peripheral pulses Extremities: normal capillary refill; no edema Gastrointestinal (Abdomen): Inspection/Auscultation: abdomen normal to inspection and normal bowel sounds Percussion/Palpation: abdomen soft; abdomen nontender Musculoskeletal: no cyanosis or clubbing, extremities motor strength 5/5 Skin: no rashes, warm and dry + incision (L neck as above. R groin vein puncture site with minimal oozing.NO hematoma) Neurologic: moves all extremities and awake; no focal motor deficits and not confused Psychiatric: A+Ox3, euthymic affect Results & Data Vital Signs (Past 12 Hours) Vital Signs Pulse Resp BP Pulse Ox O2 Del Method O2 Flow Rate 05/05/24 09:09 82 13 90 Room Air 05/05/24 09:00 139/79 05/05/24 08:45 78 93 05/05/24 08:18 72 12 93 05/05/24 07:54 77 92 05/05/24 07:52 162/84 H 05/05/24 07:45 89 24 93 05/05/24 07:42 86 15 93 05/05/24 07:36 77 05/05/24 07:15 74 18 94 Room Air 05/05/24 07:00 122/77 05/05/24 07:00 69 17 94 CPAP 05/05/24 06:00 76 18 95 05/05/24 06:00 128/72 05/05/24 06:00 128/72 05/05/24 05:48 86 24 95 05/05/24 05:18 77 19 94 05/05/24 05:06 76 14 95 05/05/24 04:54 75 15 95 05/05/24 04:33 73 19 94 05/05/24 04:15 71 12 96 05/05/24 04:03 82 18 94 05/05/24 04:00 142/95 H 05/05/24 04:00 142/95 H 05/05/24 03:51 77 18 93 05/05/24 03:49 66 20 95 2 05/05/24 03:06 65 17 93 05/05/24 03:01 139/83 05/05/24 03:01 139/83 05/05/24 03:01 139/83 05/05/24 03:01 139/83 05/05/24 02:54 78 14 95 05/05/24 02:00 104/58 L 05/05/24 02:00 104/58 L 05/05/24 02:00 76 12 94 05/05/24 01:00 80 19 92 05/05/24 01:00 104/58 L 05/05/24 01:00 104/58 L 05/05/24 00:02 78 16 91 05/05/24 00:00 100/66 05/05/24 00:00 100/66 05/05/24 00:00 100/66 05/04/24 23:53 77 18 89 L 05/04/24 23:02 66 21 94 05/04/24 23:00 101/60 05/04/24 23:00 101/60 05/04/24 22:56 68 21 93 05/04/24 22:11 61 19 93 05/04/24 22:00 119/75 05/04/24 22:00 119/75 05/04/24 21:53 66 20 93
--- NOTE | 2024-05-05 10:53 | Discharge Summary ---
Date of Service May 05, 2024 Admission HPI Per Admitting Provider Chief Complaint rm#2 here for hosp f/u to discuss TCAR. Stopped statin though Subjective I the pleasure of seeing Marcos today for follow-up. As you know he is a 68-year-old gentleman who was admitted for increased confusion. He was found to have acute findings on his MRI of his brain and a left internal carotid artery stenoses. He also had COVID at that time. Since then he has recovered nicely from his symptoms. He is back to baseline. He was never symptomatic from his COVID. Review of Systems 10 systems reviewed.-year-old negative except per the HPI. Objective Vitals & Measurements HR: 76 (Monitored) BP: 140/88 SpO2: 98% Physical Exam On exam he is awake alert and oriented x 3. He is in no apparent distress. Blood pressure is 140/88 in the right and 142/90 on the left. And neck within normal limits he does have a left carotid bruit. His radials are +2 bilaterally. Heart irregular rhythm. Lungs were clear to auscultation. Abdominal exam was benign. There is no widened aortic pulse. Femorals and pedal's are all +2 bilaterally. Neurologic exam is intact motor and sensory function. Assessment/Plan 1. Stenosis of carotid artery At this point with the symptoms and greater than 80% narrowing of his left internal carotid artery recommended intervention. We went over the risks options and benefits of endarterectomy versus TCAR. He is elected to go ahead with a TCAR. The patient is understood the risks options and benefits which were documented in the consent form and agreed to go ahead with the procedure. Will keep you informed as to his results. Thank you very much for letting us participate in the care of this patient. Sincerely, Watson rEwin MD Attestation I have personally spent ___25__ minutes performing [id number] and [id number] activities on this date of service. Activities Include: _x_ review of the medical record __x obtaining a history __x physical exam/evaluation __ review labs __ review radiology reports __x counseling/educating patient/family/caregiver __ discussion/referral to other healthcare __x documenting care in the medical record __ independent interpretation of results __ communication of results to patient/family/caregiver __ coordination of care Signature Line Electronic Signature on File Osmani Erwin MD Author Signature Dt/Tm: 04/22/2024 10:27 AM Doll Maker Severiano [facility] [place] [address], [address] [place] [address] EJS Result Type: .Outpt Ltr Date of Service: April 22, 2024 10:15 EDT Authorization Status: Final Subject: Follow Up Visit Author or Import Date: MD Erwin Eugene J on April 22, 2024 10:27 EDT Verified By: MD Erwin Eugene J on April 22, 2024 10:27 EDT Encounter info: [id number], [place] [id number], Clinic, 04/22/2024 - 04/22/2024 Admission Exam Per Admitting Provider On exam he is awake alert and oriented x 3. He is in no apparent distress. Blood pressure is 140/88 in the right and 142/90 on the left. And neck within normal limits he does have a left carotid bruit. His radials are +2 bilaterally. Heart irregular rhythm. Lungs were clear to auscultation. Abd ominal exam was benign. There is no widened aortic pulse. Femorals and pedal's are all +2 bilaterally. Neurologic exam is intact motor and sensory function. Principal Diagnosis 1. s/p L TCAR 2. L ICA stenosis with CVA Discharge Exam Constitutional WD/WN, vitals as above not in distress Neck trachea midline Respiratory normal respiratory effort, lungs clear to auscultation Auscultation: + diminished lung sounds Cardiovascular Rate/Rhythm: + irregularly irregular Vessels: femoral pulses present, posterior tibial pulses present, dorsalis pedis pulses present and radial pulses present; + abnormal peripheral pulses Extremities: normal capillary refill; no edema Gastrointestinal (Abdomen) Inspection/Auscultation: abdomen normal to inspection and normal bowel sounds Percussion/Palpation: abdomen soft; abdomen nontender Musculoskeletal no cyanosis or clubbing, extremities motor strength 5/5 Skin no rashes, warm and dry + incision (L neck as above. R groin vein puncture site with minimal oozing.NO hematoma) Neurologic moves all extremities and awake; no focal motor deficits and not confused Psychiatric A+Ox3, euthymic affect Discharge Data Allergies Allergy/AdvReac Type Severity Reaction Status Date / Time bee venom protein (honey bee) Allergy Severe Difficulty Verified 05/04/24 07:38 Breathing lisinopril AdvReac Intermediate dry cough Verified 05/04/24 07:38 Consultations 05/04/24 12:25 Consult Inspecting Engineer Routine Procedures Performed Operation Date: 05/04/24 08:30 Actual Procedures p Left Transcarotid Artery Revascularization(Left) - Osmani Erwin MD Ordered Studies 05/04/24 07:13 EV angio carotid cerv LT Routine US EV guide vascular access Routine Hospital Course (1) Internal carotid artery stent present: Pt now POD #1 after uncomplicated L TCAR. Has been hypertensive post op, however, baseline BP is severely hypertensive. Was on nicardipine drip last evening, stopped last night, restarted this AM d/t SBP >180. Advised RN to stop it again, since he is severely hypertensive at baseline. R groin venous puncture without hematoma to indicate significant bleeding from vein, however, pressure held manually x 10 min and new dressing placed. If pt without significant further bleeding, likely will d/c home today. Total Time Total Time Spent Total Time Spent (In Minutes): 0 Discharge Plan Discharge Items Reason For Visit: Left Carotid Artery Stenosis Discharge Diagnosis: 1. s/p L TCAR 2. L ICA stenosis with CVA Activity: Per Instructions section Non-emergency contact: Primary Care Provider and Surgeon Call non-emergency contact if: you have any medication questions, your symptoms worsen, your pain is not controlled, your pain is concerning for you, you have a fever, your wound has increased redness, your wound has increased drainage and your wound pain has increased Follow-up/Referrals: Alejandra Velazquez MD [Primary Care Provider] - (Follow up with your PCP within 2 weeks) Osmani Erwin MD [Physician] - (Follow up with Dr Erwin or Coral Pereyra PA-C, in 2 weeks. ) Diet: Carb Consistent or DM2 and Heart Healthy Addtl Attending Provider Instructions: SPECIAL CARE INSTRUCTIONS: Medications: * Continue to take Aspirin, Plavix, and atorvastatsis as directed. DO NOT STOP THESE MEDICATIONS WITHOUT SPEAKING TO DR ERWIN'S OFFICE Incision Care: * You may shower, but do not rub incision. You may let the warm soapy water run over it. Be sure to dry the incision well after bathing. * Do not shave directly over the incision until it is healed. * DO NOT IMMERSE THE INCISION IN A TUB/POOL/etc. UNTIL HEALED. Restrictions: * Do not drive for at least one week or if you are still taking any narcotic pain medication. * Do not lift anything heavier than a gallon of milk for one week after going home. Possible Complications: * Numbness - It is normal to have some numbness around the incision. Numbness can extend beyond the incision to areas of the neck, ear and face. The numbness is due to bruising of nerves during the surgery and will gradually improve over a period of months. * Hoarseness/Difficulty Speaking and Swallowing - The bruising of nerves in the neck can also cause a hoarse voice, difficulty speaking or swallowing. This may improve over time, HOWEVER, if it continues for more than a few days please contact our office ([phone]). * Excessive Swelling - There will be some swelling immediately after surgery which usually resolves within one week. If you notice that the swelling is getting worse, notify your surgeon ([phone]). * Drainage/Bleeding - If there is any drainage or bleeding, it should be a very small amount (less than a teaspoon per day). If you have excessive bleeding or drainage from the incision, call your surgeon ([phone]) right away. ACTIVATION OF EMERGENCY MEDICAL SYSTEM: Call 911, immediately, if you experience any of the following: Warning Signs and Symptoms of Stroke: * Sudden numbness or weakness of the face, arm or leg, especially on one side of the body * Sudden confusion, trouble speaking or understanding * Sudden trouble seeing in one or both eyes * Sudden trouble walking, dizziness, loss of balance or coordination * Sudden severe headache with no cause Do not delay calling 911 if you experience any warning signs or symptoms of a stroke. Delay in seeking medical attention may affect what treatments can be given to you. Risk Factors for Stroke: You can reduce your chances of stroke by working with your medical provider to adopt a healthy lifestyle. Some specific ways to lower your chance of stroke are: * If you are a smoker, now is the time to stop smoking cigarettes * If you are diabetic, improve the control of your blood sugars * Avoid excessive amounts of alcohol * Control high blood pressure * Lose weight if you are overweight * Be sure to lead an active lifestyle * Eat a healthy diet low in salt, cholesterol and fat You should know about other risk factors for stroke that you are unable to control. These include: * Age 55 years or older * Male gender * Certain racial groups: , or / * Family History of Stroke, Mini stroke or Heart Attack * Sickle Cell Disease You will be receiving a call from the Vascular Surgery Nurse after you are discharged. FOLLOW UP VISIT: It is important for you to keep your follow up appointments with your medical provider. Keep any scheduled doctor appointments. Pending Studies at Discharge: No Stand-Alone Forms: [facility], Smoking Cessation Medications and DC Order Prescriptions: New oxycodone-acetaminophen [Percocet] 5-325 mg Tablet 1 - 2 tab PO Q6H PRN (Reason: pain) Qty: 10 0RF Continued clonidine HCl 0.1 mg tablet 0.1 mg PO AMHS hydroxyzine HCl 50 mg tablet 50 mg PO HS PRN (Reason: prn) garlic 500 mg Capsule 500 mg PO QAM venlafaxine 37.5 mg tablet 37.5 mg PO AMHS metformin 1,000 mg tablet 1,000 mg PO BIDWMEAL aripiprazole [Abilify] 2 mg Tablet 2 mg PO QAM coQ10 (ubiquinol) 100 mg Capsule 100 mg PO QAM aspirin 81 mg Tablet,Delayed Release (Dr/Ec) 81 mg PO QAM atorvastatin 40 mg Tablet 40 mg PO QAM 30 Days Qty: 30 0RF Eliquis 5 mg tablet 5 mg PO BID Qty: 60 0RF losartan 25 mg Tablet 25 mg PO QAM 30 Days Qty: 30 0RF metoprolol succinate 25 mg Tablet Extended Release 24 Hr 25 mg PO BID 30 Days Qty: 60 0RF clopidogrel [Plavix] 75 mg tablet 75 mg PO QAM pantoprazole 40 mg tablet,delayed release (DR/EC) 40 mg PO QAM Admission Data Admit Date/Time: 05/04/24 07:44 Attending Provider: Osmani Erwin Admit Provider: Osmani Erwin Primary Care Provider: Alejandra Velazquez Other Providers: Jamari Clements; Alejandro Calvert; Rosas Parmar; Luis Fontanez; Gabino Shields; Irlanda Cox; Mehrdad Jeffers; Libra Lopez; Franny Huang; Brian King; Sunny Mike; Mesha Hernandez
[2024-05-05 11:05] VITALS: RESP 18; TEMP 98.2; O2SAT 93
[2024-05-05 12:23] VITALS: BP 140/102; PULSE 76
== END 2024-05-05 14:07 | disposition home or self-care (01) | DRG 35 ==
LOC: ASU 07:16 → 1E 07:44
PROC: EV.TCAR (2024-05-04 08:30)

== ENCOUNTER 2024-05-06 12:46 | Inpatient (IN) ==
[2024-05-06 13:40] LABS: Basophils # (auto) 0.06 K/uL (0.00-0.20); Basophils % (auto) 0.5 %; Eosinophils # (auto) 0.06 K/uL (0.00-0.50); Eosinophils % (auto) 0.5 %; Hematocrit (blood only) 38.5 % (42.0-52.0); Hemoglobin 13.3 g/dl (14.0-18.0); Immature Granulocytes # (auto) 0.04 K/uL (0.01-0.20); Immature Granulocytes % (auto) 0.3 %; Lymphocytes % (auto) 23.6 %; Mean Corpuscular Hemoglobin 31.4 pg (25.0-34.0); Mean Corpuscular Hgb Conc 34.5 g/dL (32.0-36.0); Mean Platelet Volume 10.4 fL (9.4-12.4); Monocytes # (auto) 1.06 K/uL (0.11-0.59); Monocytes % (auto) 9.3 %; Neutrophils # (auto) 7.51 K/uL (1.40-6.50); Neutrophils % (auto) 65.8 %; Platelet Count 233 K/uL (130-400); RDW Coefficient of Variation 12.9 % (11.5-14.5); RDW Standard Deviation 42.2 fL (36.4-46.3); Red Blood Count 4.23 M/uL (4.70-6.10); White Blood Count 11.43 K/ul (4.8-10.8)
--- NOTE | 2024-05-06 13:44 | Emergency Department Note ---
Impression & Plan Acute confusion, Post-op pain, HTN (hypertension) ED Provider Note NAME: ARMANDO SQUIRES AGE: 68 SEX: M : 1955 ARRIVES VIA: Walk-In INFORMANT: Patient ED PROVIDER(S): Hector Olivas DO CHIEF COMPLAINT: Altered mental status HPI: Patient is a 68-year-old male with a past medical history of a CVA with a TCAR performed by Dr. Jiang on the 26 who presents to the ER for confusion. He notes he woke up this morning and has been significantly confused and did not know what was going on or where he was. He has had this before and is unsure of the cause of it other than the stroke that he had. provides additional history and notes that patient called her and was very confused leaving a message. ADDITIONAL HISTORY OBTAINED: Per HPI Chronic Medical/Social Conditions Affecting Care: Per HPI PAST MEDICAL HISTORY:See Below PAST SURGICAL HISTORY:See Below FAMILY HISTORY:See Below SOCIAL HISTORY:See Below HOME MEDICATIONS:See Below ALLERGIES:See Below VITALS:See Below PHYSICAL EXAMINATION: GENERAL: Sitting up in bed, alert, well appearing, well nourished, no distress, non-toxic EYE EXAM: normal conjunctiva. PERRL and EOM's grossly intact. OROPHARYNX: no exudate, no erythema, lips, buccal mucosa, and tongue normal and mucous membranes are moist NECK: supple, bruising and swelling over the left neck LUNGS: Clear to auscultation. Normal chest wall mechanics HEART: no murmurs, S1 normal and S2 normal ABDOMEN: abdomen soft, non-tender, normo-active bowel sounds, no masses, no rebound or guarding. BACK: Back is symmetrical on inspection and there is no deformity, no midline tenderness, no CVA tenderness. UPPER EXTREMITIES: upper extremities are grossly normal. LOWER EXTREMITIES: No pitting edema. NEURO EXAM: Awake alert following commands oriented to person and place but not year, cranial nerves II-XII intact, normal speech, no weakness of arms, no weakness of legs. No drift. Finger to nose intact. Gross sensation intact. MEDICAL DECISION MAKING: Patient is a 68-year-old male who presents to the ER for the below stated complaint. IV was established blood work was obtained. On my exam he is awake alert oriented person place or time. Labs show faint leukocytosis at 11. Mild anemia at 13. Platelets were unremarkable. INR unremarkable. BMP with LFTs was unremarkable. Mag 1.7. Trope was negative. UA was clean. CT angios of the head and neck showed no acute pathologies. Chest x-ray was clean. I did discuss the findings with the hospitalist for further evaluation management treatment in light of recent stent placement and confusion. Hospitalist requested I discussed the case with Dr. Jiang who performed the surgery for the left TCAR. He requested blood pressures remain less than 180. Patient was in the mid 170s and consequently was given a dose of labetalol. Blood pressures trended down to the 50s. Patient was admitted for further workup. Consults/Care Managements Discussions: Per [facility] Triage Nursing notes reviewed. Limited review of prior medical records performed Vital Signs: reviewed and remarkable for HTN Differential diagnosis: Infection, hypoglycemia, electrolyte abnormalities, overdose, toxicologic, cardiac sources, intracerebral event, neurologic, trauma, as well as other pathologies. ER treatment provided: See below Diagnostics interpreted by me include EKG and cardiac monitoring as listed below: -Cardiac Monitoring: An order was placed for continuous cardiac monitoring. The monitor shows a rate of 80 with sinus rhythm. -ECG: none -Laboratory studies:Interpreted by me as stated above in MDM and shown below. Imaging studies: Xrays: As interpreted by me: Portable AP upright 1 view of the chest shows no focal Lutrate CTs show: CT angios of the head and neck were negative for any new acute pathology Procedures:none Critical Care: None Past Med/Surg History Problem List (Updated 05/06/24 @ 18:36 by Hector Olivas DO) HTN (hypertension) (Acute) Post-op pain (Acute) Acute confusion (Acute) Internal carotid artery stent present S/P vascular surgery Encounter for pre-operative examination ASCVD (arteriosclerotic cardiovascular disease) Chronic cerebral ischemia Carotid stenosis, left Acute CVA (cerebrovascular accident) 04/13/24 Acute encephalopathy 04/13/24 COVID (Acute) 04/13/24 Elevated troponin (Acute) 04/13/24 New onset a-fib (Acute) 04/13/24 Confusion (Acute) 04/12/24 Mild cognitive impairment Abnormal colonoscopy LISBETH on CPAP UTI (urinary tract infection) (Acute) 10/10/14 Mood disorder (Acute) MDD (major depressive disorder) (Acute 10/10/14) Anxiety (Acute) Hypertension (Chronic) Diabetes (Chronic) Medical History (Updated 05/06/24 @ 18:36 by Hector Olivas DO) CAD (coronary artery disease) s/p JAKE to mid LAD and diagonal branch of LAD in 2013 per hospitalization records 04/14/24 History of encephalopathy per records custodial (current) use of antithrombotics/antiplatelets custodial (current) use of anticoagulants Prostate cancer currently having imaging, unsure of urology group, no treatment as of 04/28/2024 Anxiety Depression Mild cognitive impairment History of pancreatitis History of COVID-19 (~04/12/24) years ago, resolved per patient, admitted 04/2024 positive COVID Obstructive sleep apnea CPAP Atrial fibrillation taking Eliquis Hypertension Diabetes mellitus, type II NIDDM Chronic cerebral ischemia Carotid stenosis, left ASCVD (arteriosclerotic cardiovascular disease) CVA (cerebral vascular accident) no deficits Surgical History (Updated 05/04/24 @ 12:39 by Alejandro Calvert PA-C) Hx of fusion of cervical spine ROM WNL History of cholecystectomy History of cardiac cath 2 stents, [facility] ?7 years ago Family History Mother , in her 80s with "circulatory problems" No problems noted. 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 Feels Safe at Home: Yes Assistive Devices: CPAP Allergies Allergies Allergy/AdvReac Type Severity Reaction Status Date / Time bee venom protein (honey bee) Allergy Severe Difficulty Verified 05/06/24 16:25 Breathing lisinopril AdvReac Intermediate dry cough Verified 05/06/24 16:25 Home Meds Home Medications Medication Instructions Recorded Confirmed aripiprazole 2 mg tablet (Abilify) 2 mg PO QAM 04/12/24 05/06/24 aspirin 81 mg tablet,delayed 81 mg PO QAM 04/12/24 05/06/24 release clonidine HCl 0.1 mg tablet 0.1 mg PO AMHS 04/12/24 05/06/24 coQ10 (ubiquinol) 100 mg capsule 100 mg PO QAM 04/12/24 05/06/24 garlic 500 mg capsule 500 mg PO QAM 04/12/24 05/06/24 hydroxyzine HCl 50 mg tablet 50 mg PO HS PRN prn 04/12/24 05/06/24 metformin 1,000 mg tablet 1,000 mg PO BIDWMEAL 04/12/24 05/06/24 venlafaxine 37.5 mg tablet 37.5 mg PO AMHS 04/12/24 05/06/24 clopidogrel 75 mg tablet (Plavix) 75 mg PO QAM 04/28/24 05/06/24 pantoprazole 40 mg tablet,delayed 40 mg PO QAM 04/28/24 05/06/24 release Previous Rx's Medication Instructions Recorded apixaban 5 mg tablet (Eliquis) 5 mg PO BID #60 tabs 04/14/24 atorvastatin 40 mg tablet 40 mg PO QAM 30 days #30 tabs 04/14/24 losartan 25 mg tablet 25 mg PO QAM 30 days #30 tabs 04/14/24 metoprolol succinate 25 mg 25 mg PO BID 30 days #60 tabs 04/14/24 tablet,extended release 24 hr oxycodone-acetaminophen 5 mg-325 1 - 2 tab PO Q6H PRN pain #10 tabs 05/05/24 mg tablet (Percocet) Results & Data (ED) Vital Signs Vital Signs - 24 hr 05/06/24 12:57 05/06/24 13:55 05/06/24 13:56 Temperature 36.8 C Temperature Source Temporal Artery Scan Pulse Rate 78 79 Pulse Rate [Apical] 80 Pulse Rhythm Regular Pulse Strength Normal Respiratory Rate 24 24 Respiratory Effort / Characteristics Non-Labored Spontaneous Non-Labored Spontaneous Respiratory Depth Normal Normal Respiratory Pattern Regular Blood Pressure 119/80 Blood Pressure [Left Arm] 159/95 H Blood Pressure Mean 93 Blood Pressure Mean [Left Arm] 116 Blood Pressure Position Sitting Blood Pressure Position [Left Arm] Semi-fowlers Pulse Oximetry 95 97 96 Oxygen Delivery Method Room Air Room Air Room Air Sepsis Recent Fever Within 48 Hours No Sepsis New/Unexplained Change in Mental Status N/A Sepsis Action Taken by Nursing No Action Required 05/06/24 14:00 05/06/24 15:09 05/06/24 15:52 Temperature Temperature Source Pulse Rate 87 Pulse Rate [Apical] 77 Pulse Rhythm Pulse Strength Respiratory Rate 14 Respiratory Effort / Characteristics Respiratory Depth Respiratory Pattern Blood Pressure Blood Pressure [Left Arm] 188/109 H Blood Pressure Mean Blood Pressure Mean [Left Arm] 135 Blood Pressure Position Blood Pressure Position [Left Arm] Pulse Oximetry 92 Oxygen Delivery Method Room Air Room Air Sepsis Recent Fever Within 48 Hours Sepsis New/Unexplained Change in Mental Status Sepsis Action Taken by Nursing Laboratory Data 05/06/24 13:14 05/06/24 13:14 Lab Results 05/06/24 05/06/24 05/06/24 Range/Units 13:14 13:59 14:39 WBC 11.43 H (4.8-10.8) K/ul RBC 4.23 L (4.70-6.10) M/uL Hgb 13.3 L (14.0-18.0) g/dl Hct 38.5 L (42.0-52.0) % MCV 91.0 (80.0-100.0) fL MCH 31.4 (25.0-34.0) pg MCHC 34.5 (32.0-36.0) g/dL RDW Std Deviation 42.2 (36.4-46.3) fL RDW Coeff of Laura 12.9 (11.5-14.5) % Plt Count 233 (130-400) K/uL MPV 10.4 (9.4-12.4) fL Immature Gran % (Auto) 0.3 % Neut % (Auto) 65.8 % Lymph % (Auto) 23.6 % [place] % (Auto) 9.3 % Eos % (Auto) 0.5 % Baso % (Auto) 0.5 % Neut # (Auto) 7.51 H (1.40-6.50) K/uL Lymph # (Auto) 2.70 (1.20-3.40) K/uL [place] # (Auto) 1.06 H (0.11-0.59) K/uL Eos # (Auto) 0.06 (0.00-0.50) K/uL Baso # (Auto) 0.06 (0.00-0.20) K/uL Immature Gran # (Auto) 0.04 (0.01-0.20) K/uL PT 11.9 (9.0-12.0) Seconds INR 1.1 (0.9-1.1) Sodium 135 L (136-145) mmol/L Potassium 3.8 (3.5-5.1) mmol/L Chloride 100 (98-107) mmol/L Carbon Dioxide 27 (21-32) mmol/L Anion Gap 8 (3-11) BUN 14 (6-23) mg/dl Creatinine 0.75 (0.6-1.4) mg/dl Est Cr Clr Drug Dosing 123.1 ml/min Est GFR ( Amer) 108.5 ml/min Est GFR (Non-Af Amer) 93.6 ml/min BUN/Creatinine Ratio 18.7 (10-20) Glucose 119 H (70-99(Fasting)) mg/dl POC Glucose 124 H (70-99) mg/dl Lactate 1.6 (0.4-2.0) mmol/L Calcium 9.0 (8.6-10.3) mg/dl Magnesium 1.7 (1.7-2.4) mg/dl Total Bilirubin 1.5 H (0.2-1.0) mg/dl AST 14 (13-39) U/L ALT 15 (7-52) U/L Alkaline Phosphatase 55 (34-104) U/L Troponin I High Sens 10.0 9.8 (0-20) pg/ml Total Protein 7.4 (6.0-8.3) gm/dl Albumin 4.0 (3.4-5.0) gm/dl Globulin 3.4 (2.5-4.0) gm/dl Albumin/Globulin Ratio 1.2 (0.9-2) TSH 1.358 (0.300-4.500) uIu/ml Urine Color Urine Appearance (Clear) Urine pH (4.5-7.5) Ur Specific [place] (1.000-1.030) Urine Protein (Negative) Urine Glucose (UA) (Negative) Urine Ketones (Negative) Urine Blood (Negative) Urine Nitrite (Negative) Urine Bilirubin (Negative) Urine Urobilinogen (Negative) Ur Leukocyte Esterase (Negative) 05/06/24 Range/Units 15:56 WBC (4.8-10.8) K/ul RBC (4.70-6.10) M/uL Hgb (14.0-18.0) g/dl Hct (42.0-52.0) % MCV (80.0-100.0) fL MCH (25.0-34.0) pg MCHC (32.0-36.0) g/dL RDW Std Deviation (36.4-46.3) fL RDW Coeff of Laura (11.5-14.5) % Plt Count (130-400) K/uL MPV (9.4-12.4) fL Immature Gran % (Auto) % Neut % (Auto) % Lymph % (Auto) % [place] % (Auto) % Eos % (Auto) % Baso % (Auto) % Neut # (Auto) (1.40-6.50) K/uL Lymph # (Auto) (1.20-3.40) K/uL [place] # (Auto) (0.11-0.59) K/uL Eos # (Auto) (0.00-0.50) K/uL Baso # (Auto) (0.00-0.20) K/uL Immature Gran # (Auto) (0.01-0.20) K/uL PT (9.0-12.0) Seconds INR (0.9-1.1) Sodium (136-145) mmol/L Potassium (3.5-5.1) mmol/L Chloride (98-107) mmol/L Carbon Dioxide (21-32) mmol/L Anion Gap (3-11) BUN (6-23) mg/dl Creatinine (0.6-1.4) mg/dl Est Cr Clr Drug Dosing ml/min Est GFR ( Amer) ml/min Est GFR (Non-Af Amer) ml/min BUN/Creatinine Ratio (10-20) Glucose (70-99(Fasting)) mg/dl POC Glucose (70-99) mg/dl Lactate (0.4-2.0) mmol/L Calcium (8.6-10.3) mg/dl Magnesium (1.7-2.4) mg/dl Total Bilirubin (0.2-1.0) mg/dl AST (13-39) U/L ALT (7-52) U/L Alkaline Phosphatase (34-104) U/L Troponin I High Sens (0-20) pg/ml Total Protein (6.0-8.3) gm/dl Albumin (3.4-5.0) gm/dl Globulin (2.5-4.0) gm/dl Albumin/Globulin Ratio (0.9-2) TSH (0.300-4.500) uIu/ml Urine Color Yellow Urine Appearance Clear (Clear) Urine pH 8.0 H (4.5-7.5) Ur Specific [place] 1.024 (1.000-1.030) Urine Protein Negative (Negative) Urine Glucose (UA) Negative (Negative) Urine Ketones Negative (Negative) Urine Blood Negative (Negative) Urine Nitrite Negative (Negative) Urine Bilirubin Negative (Negative) Urine Urobilinogen Negative (Negative) Ur Leukocyte Esterase Negative (Negative) Administered Medications Discontinued Medications Sodium Chloride (Nss) 1,000 mls @ 999 mls/hr IV .Q1H1M ONE Stop: 05/06/24 14:59 Last Admin: 05/06/24 14:04 Dose: 999 mls/hr Documented By: CEF Ioversol (Optiray 320 125ml) 119 ml IV ONCE ONE Stop: 05/06/24 15:27 Last Admin: 05/06/24 15:28 Dose: 119 ml Documented By: DAGOBERTO Imaging Data Radiologist's Impression: Head CT 05/06/24 13:[address] DOSE: 688.24 mGy.cm HISTORY: Confusion TECHNIQUE: Multiaxial CT images of the head were performed without the use of intravenous contrast. Automated exposure control was utilized for this study. A dose lowering technique was utilized adhering to the principles of ALARA. Comparison: Head CT 04/12/2024. Findings: Mild mucosal thickening within the sphenoid sinuses. The mastoid air cells are clear. The calvarium and skull base are intact. There is no mass, hematoma, midline shift, acute infarct. White matter hypodensity is nonspecific but suggestive of microvascular ischemic change. The ventricles and sulci demonstrate mild age-related involutional changes. There are few small old lacunar infarcts within the left periventricular white matter and bilateral basal ganglia/thalami. These remain unchanged. The punctate lacunar infarct within the left posterior temporal lobe on the prior brain MRI is not identified by this modality. Impression: No significant change compared to the prior study. No acute intracranial abnormality. ACT 112: Negative or not required by law. Electronically signed by: Yaniv Pate M.D. 05/06/2024 2:00 PM Chest X-Ray 05/06/24 13:07 XR chest 1V portable HISTORY: Confusion COMPARISON: Chest 04/12/2024. FINDINGS: No pneumothorax. No pleural effusions. No focal lung consolidations to suggest a pneumonia. The cardiac silhouette is mildly enlarged. Stable prominence of the central pulmonary arteries. No acute fractures. IMPRESSION: No significant change compared to the prior study. No acute process. ACT 112: Negative or not required by law. Electronically signed by: Yaniv Pate M.D. 05/06/2024 2:28 PM Head CTA 05/06/24 13:59 HEAD CTA HISTORY: Confusion. TECHNIQUE: Multiaxial CT images of the head were performed following the intravenous administration of contrast to evaluate the major cerebral vessels. 3D/MIP images were also obtained. Sagittal and coronal reformats were reviewed. A dose lowering technique was utilized adhering to the principles of ALARA. COMPARISON: Head CTA 04/13/2024. FINDINGS: There is no mass, hematoma, midline shift, or acute infarct. Calcified plaque within the bilateral carotid siphons. This results in severe right and moderate left supraclinoid ICA stenosis. There is a hypoplastic distal right vertebral artery. Focal moderate stenosis of approximately 50% within the distal left vertebral artery due to the calcified plaque. The basilar artery is widely patent. Mild multifocal narrowing within the left WINE MAKER. The right WINE MAKER is patent. The bilateral ACAs and MCAs show no significant stenosis, occlusion, aneurysm. The major dural venous sinuses are patent. IMPRESSION: 1. Severe right and moderate left supraclinoid ICA stenosis secondary to the calcified plaque. 2. Mild multifocal stenosis within the left WINE MAKER. 3. The bilateral ACAs and MCAs show no significant stenosis, occlusion, or aneurysm. ACT 112: Negative or not required by law. Electronically signed by: Yaniv Pate M.D. 05/06/2024 3:41 PM Neck CTA 05/06/24 13:59 CT ANGIOGRAM OF THE NECK CLINICAL HISTORY: Change in mental status COMPARISON STUDY: CT angiogram of the neck dated 04/13/2024. TECHNIQUE: Following the IV administration of 119 of Optiray 320, CT angiogram of the neck was performed from the aortic arch to the skull base. Images are reviewed in the axial, sagittal, and coronal planes. 3-D MIPS images are created and assessed. IV contrast was administered without complication. All measurements were calculated based on NASCET criteria. A dose lowering technique was utilized adhering to the principles of ALARA. CT DOSE: 650.02 mGy.cm FINDINGS: Thoracic aorta: There is atherosclerotic calcification of the thoracic aorta. Visualized portions of the thoracic aorta are normal in caliber. The aortic arch demonstrates standard 3-vessel anatomy. Right carotid arterial system: The right common carotid artery is widely patent, as are the right internal and external carotid arteries. Calcified plaque is seen in the carotid bulbs. Left carotid arterial system: The left common carotid artery is widely patent. A stent has been placed spanning the left carotid bulb. The stent is widely patent. The internal and external carotid arteries are patent. Vertebral arteries: Patent bilaterally noting left-sided dominance. Subclavian arteries: Widely patent bilaterally. Intracranial vasculature: The visualized intracranial vessels at the skull base are patent. Jugular veins: Patent bilaterally. Brain parenchyma: The visualized brain parenchyma the skull base is within normal limits. Lung apices: Partially visualized upper lobe lung parenchyma appears clear. Soft tissues: There is marked superficial and deep soft tissue edema seen throughout the left neck with edema and expansion of the left sternocleidomastoid muscle. This extends from the angle of the mandible to the upper chest. There are foci of gas within and adjacent to the left sternocleidomastoid with surrounding fluid. There is infiltration of the left parapharyngeal fat. No organized fluid collection is clearly identified. The airway is patent. The thyroid gland is mildly enlarged and heterogeneous. The salivary glands are normal as visualized. No cervical lymphadenopathy is seen. Skeletal structures: The visualized calvarium at the skull base appears intact. The imaged cervical spine is within normal limits. Orbits: The bony orbits are intact. Orbital contents are normal as visualized noting bilateral ocular lens implants. Sinuses and mastoids: Retention cysts within the maxillary antra measure up to 1.6 cm. There is trace mucosal thickening within the right maxillary sinus. Mild mucosal thickening is noted in the sphenoid sinuses. The mastoid air cells are well pneumatized. Cerumen is seen within the external auditory canals. Dentition: There are numerous dental caries. A large periapical lucency is seen involving a right mandibular molar on image #304. IMPRESSION: 1. A left carotid stent is new from previous and widely patent. 2. There is no evidence of significant stenosis or focal vessel occlusion throughout the neck vessels. 3. There is marked soft tissue edema and fluid seen throughout the soft tissues of the left neck as detailed above with edema/expansion of the sternoclavicular mastoid muscle. There are foci of soft tissue gas within and adjacent to the sternocleidomastoid with surrounding fluid. There is also infiltration of the left parapharyngeal fat. The sinuses may be related to recent surgery. A superimposed infectious process would be impossible to exclude. Clinical correlation will be essential. 4. Periodontal disease as above. Follow-up with dentistry is recommended. ACT 112: Negative or not required by law. Electronically signed by: Rodolfo Juárez M.D. 05/06/2024 3:44 PM Discharge Plan Visit Data Chief Complaint: Confusion Stated Complaint: TCAR SURGERY ED Provider: Hector Olivas Discharge Problem: Acute confusion, Post-op pain, HTN (hypertension) Forms Stand Alone Forms: [facility] Prescriptions Prescriptions: No Action clonidine HCl 0.1 mg tablet 0.1 mg PO AMHS hydroxyzine HCl 50 mg tablet 50 mg PO HS PRN (Reason: prn) garlic 500 mg Capsule 500 mg PO QAM venlafaxine 37.5 mg tablet 37.5 mg PO AMHS metformin 1,000 mg tablet 1,000 mg PO BIDWMEAL aripiprazole [Abilify] 2 mg Tablet 2 mg PO QAM coQ10 (ubiquinol) 100 mg Capsule 100 mg PO QAM aspirin 81 mg Tablet,Delayed Release (Dr/Ec) 81 mg PO QAM atorvastatin 40 mg Tablet 40 mg PO QAM 30 Days Qty: 30 0RF Eliquis 5 mg tablet 5 mg PO BID Qty: 60 0RF losartan 25 mg Tablet 25 mg PO QAM 30 Days Qty: 30 0RF metoprolol succinate 25 mg Tablet Extended Release 24 Hr 25 mg PO BID 30 Days Qty: 60 0RF clopidogrel [Plavix] 75 mg tablet 75 mg PO QAM pantoprazole 40 mg tablet,delayed release (DR/EC) 40 mg PO QAM oxycodone-acetaminophen [Percocet] 5-325 mg Tablet 1 - 2 tab PO Q6H PRN (Reason: pain) Qty: 10 0RF Referrals Referrals: Alejandra Velazquez MD [Primary Care Provider] - Discharge Problem: HTN (hypertension) Qualifiers: Hypertension type: unspecified Qualified Code(s): I10 - Essential (primary) hypertension
[2024-05-06 13:45] LABS: INR 1.1 (0.9-1.1); Prothrombin Time 11.9 Seconds (9.0-12.0)
[2024-05-06 13:52] LABS: Albumin Globulin Ratio 1.2 (0.9-2); BUN Creatinine Ratio 18.7 (10-20); Bilirubin,Total 1.5 mg/dl (0.2-1.0); Creatinine Clr Calc Pharmacy 123.1 ml/min; Est GFR (African American) 108.5 ml/min; Est GFR (Non-African American) 93.6 ml/min; Globulin 3.4 gm/dl (2.5-4.0); Magnesium 1.7 mg/dl (1.7-2.4); Potassium 3.8 mmol/L (3.5-5.1); Total Protein 7.4 gm/dl (6.0-8.3)
--- NOTE | 2024-05-06 14:02 | CT Scan Report ---
HEAD CT NONCONTRAST CT DOSE: 688.24 mGy.cm HISTORY: Confusion TECHNIQUE: Multiaxial CT images of the head were performed without the use of intravenous contrast. A utomated exposure control was utilized for this study. A dose lowering technique was utilized adheri ng to the principles of ALARA. Comparison: Head CT 04/12/2024. Findings: Mild mucosal thickening within the sphenoid sinuses. The mastoid air cells are clear. The c alvarium and skull base are intact. There is no mass, hematoma, midline shift, acute infarct. White m atter hypodensity is nonspecific but suggestive of microvascular ischemic change. The ventricles and sulci demonstrate mild age-related involutional changes. There are few small old lacunar infarcts wit hin the left periventricular white matter and bilateral basal ganglia/thalami. These remain unchanged . The punctate lacunar infarct within the left posterior temporal lobe on the prior brain MRI is not identified by this modality. Impression: No significant change compared to the prior study. No acute intracranial abnormality. ACT 112: Negative or not required by law. Electronically signed by: Yaniv Pate M.D. 05/06/2024 2:00 PM
[2024-05-06] MEDS: SODIUM CHLORIDE 0.9% 1,000 ML IV ONE (14:04)
[2024-05-06 14:08] LABS: Thyroid Stimulating Hormone 1.358 uIu/ml (0.300-4.500)
--- NOTE | 2024-05-06 14:29 | XRay Report ---
XR chest 1V portable HISTORY: Confusion COMPARISON: Chest 04/12/2024. FINDINGS: No pneumothorax. No pleural effusions. No focal lung consolidations to suggest a pneumonia. The cardiac silhouette is mildly enlarged. Stable prominence of the central pulmonary arteries. No a cute fractures. IMPRESSION: No significant change compared to the prior study. No acute process. ACT 112: Negative or not required by law. Electronically signed by: Yaniv Pate M.D. 05/06/2024 2:28 PM
[2024-05-06] MEDS: OPTIRAY 320 125ml IV ONE (15:28)
--- NOTE | 2024-05-06 15:43 | CT Scan Report ---
HEAD CTA HISTORY: Confusion. TECHNIQUE: Multiaxial CT images of the head were performed following the intravenous administration o f contrast to evaluate the major cerebral vessels. 3D/MIP images were also obtained. Sagittal and co celsa reformats were reviewed. A dose lowering technique was utilized adhering to the principles of A TONJA. COMPARISON: Head CTA 04/13/2024. FINDINGS: There is no mass, hematoma, midline shift, or acute infarct. Calcified plaque within the bi lateral carotid siphons. This results in severe right and moderate left supraclinoid ICA stenosis. Th ere is a hypoplastic distal right vertebral artery. Focal moderate stenosis of approximately 50% with in the distal left vertebral artery due to the calcified plaque. The basilar artery is widely patent. Mild multifocal narrowing within the left [employer]. The right [employer] is patent. The bilateral ACAs and MCAs show no significant stenosis, occlusion, aneurysm. The major dural venous sinuses are patent. IMPRESSION: 1. Severe right and moderate left supraclinoid ICA stenosis secondary to the calcified plaque. 2. Mild multifocal stenosis within the left [employer]. 3. The bilateral ACAs and MCAs show no significant stenosis, occlusion, or aneurysm. ACT 112: Negative or not required by law. Electronically signed by: Yaniv Pate M.D. 05/06/2024 3:41 PM
--- NOTE | 2024-05-06 15:46 | CT Scan Report ---
CT ANGIOGRAM OF THE NECK CLINICAL HISTORY: Change in mental status COMPARISON STUDY: CT angiogram of the neck dated 04/13/2024. TECHNIQUE: Following the IV administration of 119 of Optiray 320, CT angiogram of the neck was perfor med from the aortic arch to the skull base. Images are reviewed in the axial, sagittal, and coronal p lanes. 3-D MIPS images are created and assessed. IV contrast was administered without complication. A ll measurements were calculated based on NASCET criteria. A dose lowering technique was utilized adh ering to the principles of ALARA. CT DOSE: 650.02 mGy.cm FINDINGS: Thoracic aorta: There is atherosclerotic calcification of the thoracic aorta. Visualized portions of the thoracic aorta are normal in caliber. The aortic arch demonstrates standard 3-vessel anatomy. Right carotid arterial system: The right common carotid artery is widely patent, as are the right int ernal and external carotid arteries. Calcified plaque is seen in the carotid bulbs. Left carotid arterial system: The left common carotid artery is widely patent. A stent has been place d spanning the left carotid bulb. The stent is widely patent. The internal and external carotid arter ies are patent. Vertebral arteries: Patent bilaterally noting left-sided dominance. Subclavian arteries: Widely patent bilaterally. Intracranial vasculature: The visualized intracranial vessels at the skull base are patent. Jugular veins: Patent bilaterally. Brain parenchyma: The visualized brain parenchyma the skull base is within normal limits. Lung apices: Partially visualized upper lobe lung parenchyma appears clear. Soft tissues: There is marked superficial and deep soft tissue edema seen throughout the left neck wi th edema and expansion of the left sternocleidomastoid muscle. This extends from the angle of the man dible to the upper chest. There are foci of gas within and adjacent to the left sternocleidomastoid w ith surrounding fluid. There is infiltration of the left parapharyngeal fat. No organized fluid colle ction is clearly identified. The airway is patent. The thyroid gland is mildly enlarged and heterogen eous. The salivary glands are normal as visualized. No cervical lymphadenopathy is seen. Skeletal structures: The visualized calvarium at the skull base appears intact. The imaged cervical s pine is within normal limits. Orbits: The bony orbits are intact. Orbital contents are normal as visualized noting bilateral ocular lens implants. Sinuses and mastoids: Retention cysts within the maxillary antra measure up to 1.6 cm. There is trace mucosal thickening within the right maxillary sinus. Mild mucosal thickening is noted in the sphenoi d sinuses. The mastoid air cells are well pneumatized. Cerumen is seen within the external auditory c anals. Dentition: There are numerous dental caries. A large periapical lucency is seen involving a right man dibular molar on image #[id number]. IMPRESSION: 1. A left carotid stent is new from previous and widely patent. 2. There is no evidence of significant stenosis or focal vessel occlusion throughout the neck vessels . 3. There is marked soft tissue edema and fluid seen throughout the soft tissues of the left neck as d etailed above with edema/expansion of the sternoclavicular mastoid muscle. There are foci of soft tis amina gas within and adjacent to the sternocleidomastoid with surrounding fluid. There is also infiltra tion of the left parapharyngeal fat. The sinuses may be related to recent surgery. A superimposed inf ectious process would be impossible to exclude. Clinical correlation will be essential. 4. Periodontal disease as above. Follow-up with dentistry is recommended. ACT 112: Negative or not required by law. Electronically signed by: Rodolfo Juárez M.D. 05/06/2024 3:44 PM
[2024-05-06 16:18] LABS: Appearance Urine Clear (Clear); Bilirubin Urine Negative (Negative); Blood Urine Negative (Negative); Color Urine Yellow; Glucose Urine UA Negative (Negative); Ketones Urine Negative (Negative); Leukocyte Esterase Urine Negative (Negative); Nitrite Urine Negative (Negative); Protein Urine Negative (Negative); Specific Gravity Urine 1.024 (1.000-1.030); Urobilinogen Urine Negative (Negative)
--- NOTE | 2024-05-06 16:58 | History & Physical Report ---
Date of Service May 06, 2024 Assessment & Plan (1) Internal carotid artery stent present: (2) S/P vascular surgery: Plan S/p POD #2 LEFT-sided TCAR procedure Hx of carotid stenosis with recent CVA (04/13/24). - Admit to tele - BP is elevated at 188/109, will aim to keep SBP less than 180 and DBP less than 110 with IV labetalol prn. - Vascular surgery consulted - CT imaging reviewed: 1. A left carotid stent is new from previous and widely patent. 2. There is no evidence of significant stenosis or focal vessel occlusion throughout the neck vessels. 3. Soft tissues: There is marked superficial and deep soft tissue edema seen throughout the left neck with edema and expansion of the left sternocleidomastoid muscle. This extends from the angle of the mandible to the upper chest. There are foci of gas within and adjacent to the left sternocleidomastoid with surrounding fluid. There is infiltration of the left parapharyngeal fat. No organized fluid collection is clearly identified. The airway is patent. The thyroid gland is mildly enlarged and heterogeneous. The salivary glands are normal as visualized. No cervical lymphadenopathy is seen. 4. Periodontal disease as above. Follow-up with dentistry is recommended. - Yesterday, CCU was previously concerned for developing hematoma just superior to the LEFT-sided anterior neck incision site. "Area is soft to palpation without extension more superiorly. No stridor on exam. Will continue to ice the area and monitor for any expansion." - Today the area around the neck is quite tense, ecchymotic, edematous - ordered ice to help with swelling. Monitor further for hematoma. - Vascular service consulted Hypertension: - As above - Patient with significant hypertension postoperatively on 05/04, required nicardipine gtt at that time. Again BP of 188/92 on admission - improved to 150s SBP after given dose of labetolol in the ER. - Home meds include losartan 25 mg daily, metoprolol succinate 25 BID Atrial Fibrillation - Rate control, Anticoagulated on Eliquis 5 mg twice daily History of CVA -Plavix, 81 mg aspirin daily, atorvastatin 40 mg daily DM II -ISS with accuchecks ACHS - Last A1C was 6.4 GERD -Continue Protonix DVT ppx: teds, scds Lines: PIV x 2 FEN/GI: HH/DM diet CODE: Full code Dispo: From home, likely to remain in the hospital x 1-2 days A total of 78 minutes were spent with greater than 50% of that time face to face with the patient, personally reviewing all current laboratories, imaging stud ies, past medication reconciliation, outpatient chart review, and discussion with specialists to collaborate care for the patient with attending. Please see attending documentation for corrections and/or additions. History of Present Illness Chief Complaint: Confusion Primary Care Provider: Alejandra Velazquez MD This is a 68 yo M with PMHX of recent admission from 05/04-05/05 under vascular surgery service where he underwent Left transcarotid artery revascularization on 05/[address] Jiang with history of left ICA stenosis with remote hx of CVA on 04/13/24, noted at that time to test positive for COVID+19,. Access was through the right groin venous puncture, yesterday he had some bleeding from the site however after pressure was held manually x 10 minutes bleeding stopped. Overnight on 05/04 and 05/05 the patient required being on a nicardipine drip due to systolic blood pressure greater than 180. It was discussed that since he has severely uncontrolled hypertension at baseline it was stopped. Other PMHx includes depression, anxiety, sleep apnea requiring CPAP, diabetes and hypertension. The patient presents today due to worsening confusion. His , Margo, is present with him at bedside. She saw him wake up around 8am before going to work today, but then received a voicemail on her cell phone from the patient that he didn't know where he was, didn't know what was going on, and wanted her to call him back. He does recall calling his spouse this morning. In the interim of getting him here to the hospital, his confusion has completely resolved. He does not have any acute complaints other than feeling sore in his neck where the surgery was. thinks neck appears much more swollen compared to what it was yesterday. The patient slept laying flat last evening. He is able to participate in conversation, responds appropriately and follows all commands. His left leg is slightly weaker than the right however mentions it has been like that for a long time, even prior to the stroke he had at the beginning of April. Allergies Allergy/AdvReac Type Severity Reaction Status Date / Time bee venom protein (honey bee) Allergy Severe Difficulty Verified 05/06/24 16:25 Breathing lisinopril AdvReac Intermediate dry cough Verified 05/06/24 16:25 Home Medications Medication Instructions Recorded Confirmed Type aripiprazole 2 mg tablet (Abilify) 2 mg PO QAM 04/12/24 05/06/24 History aspirin 81 mg tablet,delayed 81 mg PO QAM 04/12/24 05/06/24 History release clonidine HCl 0.1 mg tablet 0.1 mg PO AMHS 04/12/24 05/06/24 History coQ10 (ubiquinol) 100 mg capsule 100 mg PO QAM 04/12/24 05/06/24 History garlic 500 mg capsule 500 mg PO QAM 04/12/24 05/06/24 History hydroxyzine HCl 50 mg tablet 50 mg PO HS PRN prn 04/12/24 05/06/24 History metformin 1,000 mg tablet 1,000 mg PO BIDWMEAL 04/12/24 05/06/24 History venlafaxine 37.5 mg tablet 37.5 mg PO AMHS 04/12/24 05/06/24 History apixaban 5 mg tablet (Eliquis) 5 mg PO BID #60 tabs 04/14/24 05/06/24 Rx atorvastatin 40 mg tablet 40 mg PO QAM 30 days #30 tabs 04/14/24 05/06/24 Rx losartan 25 mg tablet 25 mg PO QAM 30 days #30 tabs 04/14/24 05/06/24 Rx metoprolol succinate 25 mg 25 mg PO BID 30 days #60 tabs 04/14/24 05/06/24 Rx tablet,extended release 24 hr clopidogrel 75 mg tablet (Plavix) 75 mg PO QAM 04/28/24 05/06/24 History pantoprazole 40 mg tablet,delayed 40 mg PO QAM 04/28/24 05/06/24 History release oxycodone-acetaminophen 5 mg-325 1 - 2 tab PO Q6H PRN pain #10 tabs 05/05/24 05/06/24 Rx mg tablet (Percocet) Past Med/Surg History Problem List (Updated 05/06/24 @ 18:36 by Hector Olivas DO) HTN (hypertension) (Acute) Post-op pain (Acute) Acute confusion (Acute) Internal carotid artery stent present S/P vascular surgery Encounter for pre-operative examination ASCVD (arteriosclerotic cardiovascular disease) Chronic cerebral ischemia Carotid stenosis, left Acute CVA (cerebrovascular accident) 04/13/24 Acute encephalopathy 04/13/24 COVID (Acute) 04/13/24 Elevated troponin (Acute) 04/13/24 New onset a-fib (Acute) 04/13/24 Confusion (Acute) 04/12/24 Mild cognitive impairment Abnormal colonoscopy LISBETH on CPAP UTI (urinary tract infection) (Acute) 10/10/14 Mood disorder (Acute) MDD (major depressive disorder) (Acute 10/10/14) Anxiety (Acute) Hypertension (Chronic) Diabetes (Chronic) Medical History (Updated 05/06/24 @ 18:36 by Hector Olivas DO) CAD (coronary artery disease) s/p JAKE to mid LAD and diagonal branch of LAD in 2013 per hospitalization records 04/14/24 History of encephalopathy per records watermelon inspector (current) use of antithrombotics/antiplatelets watermelon inspector (current) use of anticoagulants Prostate cancer currently having imaging, unsure of urology group, no treatment as of 04/28/2024 Anxiety Depression Mild cognitive impairment History of pancreatitis History of COVID-19 (~04/12/24) years ago, resolved per patient, admitted 04/2024 positive COVID Obstructive sleep apnea CPAP Atrial fibrillation taking Eliquis Hypertension Diabetes mellitus, type II NIDDM Chronic cerebral ischemia Carotid stenosis, left ASCVD (arteriosclerotic cardiovascular disease) CVA (cerebral vascular accident) no deficits Surgical History (Updated 05/04/24 @ 12:39 by Alejandro Calvert PA-C) Hx of fusion of cervical spine ROM WNL History of cholecystectomy History of cardiac cath 2 stents, [facility] ?7 years ago Family History Mother , in her 80s with "circulatory problems" No problems noted. 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 Other Information That Helps Us Care for You: No Feels Safe at Home: Yes Safety Concerns: Feels Safe At This Time Assistive Devices: Glasses Review of Systems Review of Systems: Constitutional: No fever, sweats or chills Eyes: No diplopia, no worsening or blurred vision ENT: normal hearing, no trouble swallowing Respiratory: No cough, sputum, dyspnea at rest or on exertion Cardiovascular: No chest pain, tightness or palpitations Abdomen: No pain, nausea, vomiting, diarrhea or constipation Musculoskeletal: No joint pain, calf pain, swelling Neurologic: As per HPI. No weakness, numbness/tingling, or balance problems Psychiatric: No anxiety or depression Skin: No rash or itch Physical Exam Physical Exam: General: awake, alert, no apparent distress Head: Normocephalic, s/p Left TCAR with significant ecchymosis around large area of the neck, skin is tense superiorly to the incision site which is glue/sutured. No signs of purulent drainage. ENT: PERRL, EOMI, no pharyngeal exudate, mucous membranes moist Chest: Clear to auscultation, on room air, no adventitious breath sounds Cardiac: Regular rate and rhythm, no murmur, no JVD, normal peripheral pulses, good capillary refill Abdominal: NABS x 4 quadrants, soft, nondistended, nontender to palpation, no rebound or guarding Extremities: Normal inspection, no peripheral edema or erythema, calfs nontender to palpation Psych: Normal mood and affect Neuro: AAO x 3, strength intact bilaterally and rated grossly 5/5, hip flexor strength 4/5 on the left leg compared to 5/5 in the right. pt can perform neuro testing, finger to nose, no motor deficits, speech is clear, no peripheral sensory deficits Results & Data Results & Data Vital Signs (Past 12 Hours) Vital Signs Temp Pulse Pulse Resp BP BP Pulse Ox 05/06/24 15:52 77 14 188/109 H 92 05/06/24 15:09 87 05/06/24 14:00 05/06/24 13:56 79 24 96 05/06/24 13:55 80 24 159/95 H 97 05/06/24 12:57 36.8 C 78 20 119/80 95 O2 Del Method 05/06/24 15:52 Room Air 05/06/24 15:09 05/06/24 14:00 Room Air 05/06/24 13:56 Room Air 05/06/24 13:55 Room Air 05/06/24 12:57 Room Air Laboratory Results 05/06/24 05/06/24 05/06/24 15:56 14:39 13:59 WBC RBC Hgb Hct MCV MCH MCHC RDW Std Deviation RDW Coeff of Laura Plt Count MPV Immature Gran % (Auto) Neut % (Auto) Lymph % (Auto) Irwin % (Auto) Eos % (Auto) Baso % (Auto) Neut # (Auto) Lymph # (Auto) Irwin # (Auto) Eos # (Auto) Baso # (Auto) Immature Gran # (Auto) PT INR Sodium Potassium Chloride Carbon Dioxide Anion Gap BUN Creatinine Est Cr Clr Drug Dosing Est GFR ( Amer) Est GFR (Non-Af Amer) BUN/Creatinine Ratio Glucose POC Glucose 124 H Lactate 1.6 Calcium Magnesium Total Bilirubin AST ALT Alkaline Phosphatase Troponin I High Sens 9.8 Total Protein Albumin Globulin Albumin/Globulin Ratio TSH Urine Color Yellow Urine Appearance Clear Urine pH 8.0 H Ur Specific Triangle 1.024 Urine Protein Negative Urine Glucose (UA) Negative Urine Ketones Negative Urine Blood Negative Urine Nitrite Negative Urine Bilirubin Negative Urine Urobilinogen Negative Ur Leukocyte Esterase Negative 05/06/24 13:14 WBC 11.43 H RBC 4.23 L Hgb 13.3 L Hct 38.5 L MCV 91.0 MCH 31.4 MCHC 34.5 RDW Std Deviation 42.2 RDW Coeff of Laura 12.9 Plt Count 233 MPV 10.4 Immature Gran % (Auto) 0.3 Neut % (Auto) 65.8 Lymph % (Auto) 23.6 Irwin % (Auto) 9.3 Eos % (Auto) 0.5 Baso % (Auto) 0.5 Neut # (Auto) 7.51 H Lymph # (Auto) 2.70 Irwin # (Auto) 1.06 H Eos # (Auto) 0.06 Baso # (Auto) 0.06 Immature Gran # (Auto) 0.04 PT 11.9 INR 1.1 Sodium 135 L Potassium 3.8 Chloride 100 Carbon Dioxide 27 Anion Gap 8 BUN 14 Creatinine 0.75 Est Cr Clr Drug Dosing 123.1 Est GFR ( Amer) 108.5 Est GFR (Non-Af Amer) 93.6 BUN/Creatinine Ratio 18.7 Glucose 119 H POC Glucose Lactate Calcium 9.0 Magnesium 1.7 Total Bilirubin 1.5 H AST 14 ALT 15 Alkaline Phosphatase 55 Troponin I High Sens 10.0 Total Protein 7.4 Albumin 4.0 Globulin 3.4 Albumin/Globulin Ratio 1.2 TSH 1.358 Urine Color Urine Appearance Urine pH Ur Specific Triangle Urine Protein Urine Glucose (UA) Urine Ketones Urine Blood Urine Nitrite Urine Bilirubin Urine Urobilinogen Ur Leukocyte Esterase Diagnostic Findings Head CT 05/06/24 13:[address] DOSE: 688.24 mGy.cm HISTORY: Confusion TECHNIQUE: Multiaxial CT images of the head were performed without the use of intravenous contrast. Automated exposure control was utilized for this study. A dose lowering technique was utilized adhering to the principles of ALARA. Comparison: Head CT 04/12/2024. Findings: Mild mucosal thickening within the sphenoid sinuses. The mastoid air cells are clear. The calvarium and skull base are intact. There is no mass, hematoma, midline shift, acute infarct. White matter hypodensity is nonspecific but suggestive of microvascular ischemic change. The ventricles and sulci demonstrate mild age-related involutional changes. There are few small old lacunar infarcts within the left periventricular white matter and bilateral basal ganglia/thalami. These remain unchanged. The punctate lacunar infarct within the left posterior temporal lobe on the prior brain MRI is not identified by this modality. Impression: No significant change compared to the prior study. No acute intracranial abnormality. ACT 112: Negative or not required by law. Electronically signed by: Yaniv Pate M.D. 05/06/2024 2:00 PM Chest X-Ray 05/06/24 13:07 XR chest 1V portable HISTORY: Confusion COMPARISON: Chest 04/12/2024. FINDINGS: No pneumothorax. No pleural effusions. No focal lung consolidations to suggest a pneumonia. The cardiac silhouette is mildly enlarged. Stable pr ominence of the central pulmonary arteries. No acute fractures. IMPRESSION: No significant change compared to the prior study. No acute process. ACT 112: Negative or not required by law. Electronically signed by: Yaniv Pate M.D. 05/06/2024 2:28 PM Head CTA 05/06/24 13:59 HEAD CTA HISTORY: Confusion. TECHNIQUE: Multiaxial CT images of the head were performed following the intravenous administration of contrast to evaluate the major cerebral vessels. 3D/MIP images were also obtained. Sagittal and coronal reformats were reviewed. A dose lowering technique was utilized adhering to the principles of ALARA. COMPARISON: Head CTA 04/13/2024. FINDINGS: There is no mass, hematoma, midline shift, or acute infarct. Calcified plaque within the bilateral carotid siphons. This results in severe right and moderate left supraclinoid ICA stenosis. There is a hypoplastic distal right vertebral artery. Focal moderate stenosis of approximately 50% within the distal left vertebral artery due to the calcified plaque. The basilar artery is widely patent. Mild multifocal narrowing within the left SURETY BOND AGENT. The right SURETY BOND AGENT is patent. The bilateral ACAs and MCAs show no significant stenosis, occlusion, aneurysm. The major dural venous sinuses are patent. IMPRESSION: 1. Severe right and moderate left supraclinoid ICA stenosis secondary to the calcified plaque. 2. Mild multifocal stenosis within the left SURETY BOND AGENT. 3. The bilateral ACAs and MCAs show no significant stenosis, occlusion, or aneurysm. ACT 112: Negative or not required by law. Electronically signed by: Yaniv Pate M.D. 05/06/2024 3:41 PM Neck CTA 05/06/24 13:59 CT ANGIOGRAM OF THE NECK CLINICAL HISTORY: Change in mental status COMPARISON STUDY: CT angiogram of the neck dated 04/13/2024. TECHNIQUE: Following the IV administration of 119 of Optiray 320, CT angiogram of the neck was performed from the aortic arch to the skull base. Images are reviewed in the axial, sagittal, and coronal planes. 3-D MIPS images are created and assessed. IV contrast was administered without complication. All measurements were calculated based on NASCET criteria. A dose lowering technique was utilized adhering to the principles of ALARA. CT DOSE: 650.02 mGy.cm FINDINGS: Thoracic aorta: There is atherosclerotic calcification of the thoracic aorta. Visualized portions of the thoracic aorta are normal in caliber. The aortic arch demonstrates standard 3-vessel anatomy. Right carotid arterial system: The right common carotid artery is widely patent, as are the right internal and external carotid arteries. Calcified plaque is seen in the carotid bulbs. Left carotid arterial system: The left common carotid artery is widely patent. A stent has been placed spanning the left carotid bulb. The stent is widely patent. The internal and external carotid arteries are patent. Vertebral arteries: Patent bilaterally noting left-sided dominance. Subclavian arteries: Widely patent bilaterally. Intracranial vasculature: The visualized intracranial vessels at the skull base are patent. Jugular veins: Patent bilaterally. Brain parenchyma: The visualized brain parenchyma the skull base is within normal limits. Lung apices: Partially visualized upper lobe lung parenchyma appears clear. Soft tissues: There is marked superficial and deep soft tissue edema seen throughout the left neck with edema and expansion of the left sternocleidomastoid muscle. This extends from the angle of the mandible to the upper chest. There are foci of gas within and adjacent to the left sternocleidomastoid with surrounding fluid. There is infiltration of the left parapharyngeal fat. No organized fluid collection is clearly identified. The a irway is patent. The thyroid gland is mildly enlarged and heterogeneous. The salivary glands are normal as visualized. No cervical lymphadenopathy is seen. Skeletal structures: The visualized calvarium at the skull base appears intact. The imaged cervical spine is within normal limits. Orbits: The bony orbits are intact. Orbital contents are normal as visualized noting bilateral ocular lens implants. Sinuses and mastoids: Retention cysts within the maxillary antra measure up to 1.6 cm. There is trace mucosal thickening within the right maxillary sinus. Mild mucosal thickening is noted in the sphenoid sinuses. The mastoid air cells are well pneumatized. Cerumen is seen within the external auditory canals. Dentition: There are numerous dental caries. A large periapical lucency is seen involving a right mandibular molar on image #304. IMPRESSION: 1. A left carotid stent is new from previous and widely patent. 2. There is no evidence of significant stenosis or focal vessel occlusion throughout the neck vessels. 3. There is marked soft tissue edema and fluid seen throughout the soft tissues of the left neck as detailed above with edema/expansion of the sternoclavicular mastoid muscle. There are foci of soft tissue gas within and adjacent to the sternocleidomastoid with surrounding fluid. There is also infiltration of the left parapharyngeal fat. The sinuses may be related to recent surgery. A superimposed infectious process would be impossible to exclude. Clinical correlation will be essential. 4. Periodontal disease as above. Follow-up with dentistry is recommended. ACT 112: Negative or not required by law. Electronically signed by: Rodolfo Juárez M.D. 05/06/2024 3:44 PM Code Status & VTE Plan Code Status Full code - discussed with pt and at bedside Supervising Physician Co-Signing Physician Notes Pt was seen and examined by myself, Ethel Casas MD on the day of service. Care was coordinated with Natalie Do PA-C. 68yoM post TCAR with Vascular 2 days ago on triple therapy with aspirin, plavix and Eliquis. Pt alert and oriented, no acute distress on exam. Left neck with appropriate post op bruising, tender, ice pack in place, CTA neck post op with questionable infection, slight leukocytosis which could be reactive, appreciate further vascular recs. Hypertensive, prn labetalol with SBP goal <180 Appreciate Vascular recs Otherwise as above. I spent a total [id number] coordinating, documenting, and providing care for this patient excluding time spent in the performance of separately billed services
[2024-05-06] MEDS: LABETALOL HCL IV 5 MG/ML 20ML IV STA (18:35)
[2024-05-06] MEDS ORDERED: GLUCOSE 10 TAB/TUBE PO PRN (21:52)
[2024-05-06] MEDS ORDERED: DEXTROSE 50% 50 ML SYRINGE IV PRN (21:52)
[2024-05-06] MEDS ORDERED: ACETAMINOPHEN 325 MG TAB PO PRN (21:52)
[2024-05-06] MEDS ORDERED: CARBOHYDRATES FOR HYPOGLYCEMIA PO PRN (21:52)
[2024-05-06] MEDS ORDERED: GLUCOSE 40% GEL 15 GM TUBE PO PRN (21:52)
[2024-05-06] MEDS ORDERED: GLUCAGON FOR INJ 1 MG VIAL SQ PRN (21:52)
[2024-05-06] MEDS ORDERED: hydrOXYzine HCl 25 MG TAB PO PRN (21:52)
[2024-05-06] MEDS ORDERED: ONDANSETRON INJ 2 MG/ML 2 ML VIAL IV PRN (21:52)
[2024-05-06] MEDS: APIXABAN 5 MG TABLET PO SCH (23:03)
[2024-05-06] MEDS: cloNIDine HCL 0.1 MG TAB PO SCH (23:03)
[2024-05-06] MEDS: METOPROLOL SUCC 25MG EXT REL TAB PO SCH (23:03)
[2024-05-06] MEDS: VENLAFAXINE HCL 37.5 MG TAB PO SCH (23:03)
[2024-05-06] MEDS: INSULIN ASPART PER UNIT CHARGE SC SCH (23:50)
[2024-05-07 05:25] LABS: Hematocrit (blood only) 36.3 % (42.0-52.0); Hemoglobin 12.5 g/dl (14.0-18.0); Mean Corpuscular Hemoglobin 31.6 pg (25.0-34.0); Mean Corpuscular Hgb Conc 34.4 g/dL (32.0-36.0); Mean Corpuscular Volume 91.9 fL (80.0-100.0); Mean Platelet Volume 10.3 fL (9.4-12.4); Platelet Count 194 K/uL (130-400); RDW Coefficient of Variation 12.8 % (11.5-14.5); RDW Standard Deviation 42.5 fL (36.4-46.3); Red Blood Count 3.95 M/uL (4.70-6.10); White Blood Count 10.23 K/ul (4.8-10.8)
[2024-05-07 05:38] LABS: Calcium 8.6 mg/dl (8.6-10.3); Creatinine Clr Calc Pharmacy 131.9 ml/min; Est GFR (African American) 111.6 ml/min; Est GFR (Non-African American) 96.3 ml/min; Potassium 3.4 mmol/L (3.5-5.1)
[2024-05-07] MEDS: ATORVASTATIN 40 MG TAB PO SCH (08:38)
[2024-05-07] MEDS: LOSARTAN POTASSIUM 25 MG TAB PO SCH (08:39)
[2024-05-07] MEDS: CLOPIDOGREL BISULFATE 75 MG TAB PO SCH (08:39)
[2024-05-07] MEDS: ASPIRIN 81 MG ECTAB PO SCH (08:39)
[2024-05-07] MEDS: PANTOprazole 40 MG TAB PO SCH (08:39)
[2024-05-07] MEDS ORDERED: NON-FORMULARY MEDICATION (Coq10 (Ubiquinol) 100 mg Capsule) PO SCH (09:00)
[2024-05-07] MEDS: ARIPIprazole 1 MG/ML ORAL SOLN 150 ML BTL PO SCH (09:10)
[2024-05-07] MEDS: POTASSIUM CHLORIDE CRTAB 20 MEQ TABCR PO STA (09:40)
[2024-05-07] MEDS: LABETALOL HCL IV 5 MG/ML 20ML IV PRN (14:33)
--- NOTE | 2024-05-07 14:42 | Consultation ---
Date of Consultation May 07, 2024 Assessment & Plan (1) Acute confusion: This patient is 3d after a left TCAR. He has no focal deficits. He does have a moderate sized hematoma but no tracheal deviation. CTA showed a widely patent carotid stent. The air seen in the hematoma on the CTA is normal for any s urgical procedure. Pockets of air can be seen up to 7days post op in a surgical wound. His confusion may be associated with his hypertensive episodes. Would recommend better control of his pressure at home. We will see him in the office for his routine follow up as scheduled. Thank you very much for letting us participate in the care of this patient. History of Present Illness Reason for Consultation: confusion and wound problem Attending Physician: Venkata Guthrie MD History of Present Illness Patient is a 68yo male who had a left TCAR on 05/04. He woke up yesterday and was confused. He denies any focal deficits. He claims it lasted about 2 hours. He denies any more confusion since then. He denies difficulty with swallowing or focal deficits. In the ED on the day of admission is was hypertensive. He was also hypertensive pre op. Allergies Allergy/AdvReac Type Severity Reaction Status Date / Time bee venom protein (honey bee) Allergy Severe Difficulty Verified 05/06/24 16:25 Breathing lisinopril AdvReac Intermediate dry cough Verified 05/06/24 16:25 Home Medications Medication Instructions Recorded Confirmed Type aripiprazole 2 mg tablet (Abilify) 2 mg PO QAM 04/12/24 05/06/24 History aspirin 81 mg tablet,delayed 81 mg PO QAM 04/12/24 05/06/24 History release clonidine HCl 0.1 mg tablet 0.1 mg PO AMHS 04/12/24 05/06/24 History coQ10 (ubiquinol) 100 mg capsule 100 mg PO QAM 04/12/24 05/06/24 History garlic 500 mg capsule 500 mg PO QAM 04/12/24 05/06/24 History hydroxyzine HCl 50 mg tablet 50 mg PO HS PRN prn 04/12/24 05/06/24 History metformin 1,000 mg tablet 1,000 mg PO BIDWMEAL 04/12/24 05/06/24 History venlafaxine 37.5 mg tablet 37.5 mg PO AMHS 04/12/24 05/06/24 History apixaban 5 mg tablet (Eliquis) 5 mg PO BID #60 tabs 04/14/24 05/06/24 Rx atorvastatin 40 mg tablet 40 mg PO QAM 30 days #30 tabs 04/14/24 05/06/24 Rx losartan 25 mg tablet 25 mg PO QAM 30 days #30 tabs 04/14/24 05/06/24 Rx metoprolol succinate 25 mg 25 mg PO BID 30 days #60 tabs 04/14/24 05/06/24 Rx tablet,extended release 24 hr clopidogrel 75 mg tablet (Plavix) 75 mg PO QAM 04/28/24 05/06/24 History pantoprazole 40 mg tablet,delayed 40 mg PO QAM 04/28/24 05/06/24 History release oxycodone-acetaminophen 5 mg-325 1 - 2 tab PO Q6H PRN pain #10 tabs 05/05/24 05/06/24 Rx mg tablet (Percocet) Patient History Medical History CAD (coronary artery disease) s/p JAKE to mid LAD and diagonal branch of LAD in 2013 per hospitalization records 04/14/24 History of encephalopathy per records terminologist (current) use of antithrombotics/antiplatelets detention (current) use of anticoagulants Prostate cancer currently having imaging, unsure of urology group, no treatment as of 04/28/2024 Anxiety Depression Mild cognitive impairment History of pancreatitis History of COVID-19 (~04/12/24) years ago, resolved per patient, admitted 04/2024 positive COVID Obstructive sleep apnea CPAP Atrial fibrillation taking Eliquis Hypertension Diabetes mellitus, type II NIDDM Chronic cerebral ischemia Carotid stenosis, left ASCVD (arteriosclerotic cardiovascular disease) CVA (cerebral vascular accident) no deficits Surgical History Hx of fusion of cervical spine ROM WNL History of cholecystectomy History of cardiac cath 2 stents, [facility] ?7 years ago Family History Mother , in her 80s with "circulatory problems" No problems noted. 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 Other Information That Helps Us Care for You: No Feels Safe at Home: Yes Safety Concerns: Feels Safe At This Time Assistive Devices: Glasses Review of Systems Review of Systems: All systems reviewed & are unremarkable except as noted in HPI & below Physical Exam Constitutional: WD/WN, vitals as above Neck: trachea midline Respiratory: normal respiratory effort; no respiratory distress Cardiovascular: Rate/Rhythm: regular rate and regular rhythm Extremities: normal capillary refill Skin: + incision (ecchymosis of neck incision with moderate size hematoma) Neurologic: CN's II-XI intact bilaterally and moves all extremities Psychiatric: A+Ox3, euthymic affect Results & Data Vital Signs (Past 12 Hours) Vital Signs Pulse Pulse Resp BP BP Pulse Ox O2 Del Method 05/07/24 14:33 78 180/105 H 05/07/24 12:39 86 18 156/109 H 97 Room Air 05/07/24 10:00 85 20 145/99 H 95 Room Air 05/07/24 07:52 74 05/07/24 07:21 72 20 140/95 97 Nasal Cannula 05/07/24 06:26 80 144/102 H 94 Room Air 05/07/24 04:13 89 18 174/93 H 92 Room Air O2 Flow Rate 05/07/24 14:33 05/07/24 12:39 05/07/24 10:00 05/07/24 07:52 05/07/24 07:21 2 05/07/24 06:26 05/07/24 04:13
--- NOTE | 2024-05-07 17:41 | Hospitalist Progress Note ---
Date of Service May 07, 2024 Assessment & Plan (1) Internal carotid artery stent present: (2) S/P vascular surgery: (3) Acute confusion: Plan Acute confusion No apparent cause of confusion acute confusion is identified Denies any more confusion during examination Blood pressure remains on the upper side but no other significant findings Recent carotid artery surgery side as documented below S/p LEFT-sided TCAR procedure-on 05/04/2024 Hx of carotid stenosis with recent CVA (04/13/24). - BP is elevated at 188/109, will aim to keep SBP less than 180 and DBP less than 110 with IV labetalol prn. - CT imaging reviewed: 1. A left carotid stent is new from previous and widely patent. 2. There is no evidence of significant stenosis or focal vessel occlusion throughout the neck vessels. 3. Soft tissues: There is marked superficial and deep soft tissue edema seen throughout the left neck with edema and expansion of the left sternocleidomastoid muscle. This extends from the angle of the mandible to the upper chest. There are foci of gas within and adjacent to the left sternocleidomastoid with surrounding fluid. There is infiltration of the left parapharyngeal fat. No organized fluid collection is clearly identified. The air way is patent. The thyroid gland is mildly enlarged and heterogeneous. The salivary glands are normal as visualized. No cervical lymphadenopathy is seen. 4. Periodontal disease as above. Follow-up with dentistry is recommended. Noted to have significant swelling and bruising involving the lower neck mostly on the left side Does not have any compromise with breathing and/or swallowing Denies any pain Appreciate vascular surgery input and recommendation Will have follow-up as an outpatient with the vascular surgery as planned Hypertension: - As above - Patient with significant hypertension postoperatively on 05/04, required nicardipine gtt at that time. Again BP of 188/92 on admission - improved to 150s SBP after given dose of labetolol in the ER. - Home meds include losartan 25 mg daily, metoprolol succinate 25 BID -Blood pressure remains on the upper side at 167/103 Will monitor-in the telemetry unit Atrial Fibrillation - Rate control, Anticoagulated on Eliquis 5 mg twice daily History of CVA -Plavix, 81 mg aspirin daily, atorvastatin 40 mg daily DM II -ISS with accuchecks ACHS - Last A1C was 6.4 GERD -Continue Protonix DVT ppx: teds, scds Lines: PIV x 2 FEN/GI: HH/DM diet CODE: Full code Dispo: From home, likely to remain in the hospital x 1-2 days Admission and Anticipated Discharge Date Admission Date: May 06, 2024 Subjective 05/07/2024 Patient was seen and examined in the emergency room He is a status post left transcarotid artery revascularization on 05/04/2024 Was admitted yesterday with acute confusion and is worried about swelling and bruising of the neck Remained hemodynamically stable during my examination and denies any problems with breathing or speaking His acute confusion is resolved Review of Systems Review of Systems: All systems reviewed and are unremarkable except as noted below Physical Exam Physical Exam: Lying in bed without any acute distress Constitutional: well developed, well nourished, + ill appearing and + obese Eyes: PERRL, conjunctivae normal, anicteric sclerae ENMT: external ear and nose normal, oropharynx normal Neck: + abnormal visual inspection (Extensive bruising and moderate swelling involving the lower neck, mostly r) Respiratory: no respiratory distress Auscultation: lungs clear to auscultation bilaterally Cardiovascular: Rate/Rhythm: regular rate and regular rhythm; not tachycardic Heart Sounds: normal S1 and normal S2; no murmur Extremities: no edema Gastrointestinal (Abdomen): Inspection/Auscultation: normal bowel sounds; abdomen not distended Percussion/Palpation: abdomen soft; abdomen nontender Musculoskeletal: No acute arthritis involving any of the joint Neurologic: normal touch/pain/proprioception and moves all extremities; no focal motor deficits Lymphatic: no cervical or axillary lymphadenopathy Results & Data Results & Data Vital Signs (Past 12 Hours) Vital Signs Temp Pulse Pulse Resp BP BP Pulse Ox 05/07/24 15:45 36.3 C L 79 20 167/103 H 95 05/07/24 14:58 89 18 159/99 H 95 05/07/24 14:52 83 18 155/85 H 95 05/07/24 14:33 78 180/105 H 05/07/24 12:39 86 18 156/109 H 97 05/07/24 10:00 85 20 145/99 H 95 05/07/24 07:52 74 05/07/24 07:21 72 20 140/95 97 05/07/24 06:26 80 144/102 H 94 O2 Del Method O2 Flow Rate 05/07/24 15:45 Room Air 05/07/24 14:58 Room Air 05/07/24 14:52 Room Air 05/07/24 14:33 05/07/24 12:39 Room Air 05/07/24 10:00 Room Air 05/07/24 07:52 05/07/24 07:21 Nasal Cannula 2 05/07/24 06:26 Room Air Laboratory Results Short CBC 05/07/24 Range/Units 04:16 WBC 10.23 (4.8-10.8) K/ul Hgb 12.5 L (14.0-18.0) g/dl Hct 36.3 L (42.0-52.0) % Plt Count 194 (130-400) K/uL BMP 05/07/24 04:16 Sodium 137 Potassium 3.4 L Chloride 103 Carbon Dioxide 26 BUN 14 Creatinine 0.70 Glucose 106 H Calcium 8.6 Medications Administered Current Inpatient Medications Acetaminophen (Acetaminophen 325 Mg Tab) 650 mg PO Q4H PRN PRN Reason: Moderate Pain (Scale 4, 5, 6) Stop: 06/05/24 21:51 Apixaban (Apixaban 5 Mg Tablet) 5 mg PO BID [facility] Stop: 06/05/24 21:51 Last Admin: 05/07/24 08:39 Dose: 5 mg Aripiprazole (Aripiprazole 1 Mg/Ml Oral Soln 150 Ml Btl) [facility] [place]: 06/06/24 08:59 Last Admin: 05/07/24 09:10 Dose: 2 mg Aspirin (Aspirin 81 Mg Ectab) 81 mg PO [facility] Stop: 06/06/24 08:59 Last Admin: 05/07/24 08:39 Dose: 81 mg Atorvastatin Calcium (Atorvastatin 40 Mg Tab) 40 mg PO [facility] Stop: 06/06/24 08:59 Last Admin: 05/07/24 08:38 Dose: 40 mg Clonidine HCl (Clonidine Hcl 0.1 Mg Tab) 0.1 mg PO [facility] Stop: 06/05/24 21:51 Last Admin: 05/07/24 08:39 Dose: 0.1 mg Clopidogrel Bisulfate (Clopidogrel Bisulfate 75 Mg Tab) 75 mg PO [facility] Stop: 06/06/24 08:59 Last Admin: 05/07/24 08:39 Dose: 75 mg Dextrose (Dextrose 50% 50 Ml Syringe) 25 - 50 ml IV UD PRN; Protocol PRN Reason: Hypoglycemia Protocol Stop: 06/05/24 21:51 Glucagon (Glucagon For Inj 1 Mg Vial) 1 mg SQ UD PRN; Protocol PRN Reason: Hypoglycemia Protocol Stop: 06/05/24 21:51 Glucose (Glucose 40% Gel 15 Gm Tube) 15 - 30 gm PO UD PRN; Protocol PRN Reason: Hypoglycemia Protocol Stop: 06/05/24 21:51 Glucose (Glucose 10 Tab/Tube) 4 - 8 tab PO UD PRN; Protocol PRN Reason: Hypoglycemia Treatment Stop: 06/05/24 21:51 Hydroxyzine HCl (Hydroxyzine Hcl 25 Mg Tab) 50 mg PO HS PRN PRN Reason: Sleep Stop: 06/05/24 21:51 Insulin Aspart (Insulin Aspart Per Unit Charge) 0 units SC ACHS [facility] Stop: 06/05/24 21:51 Last Admin: 05/07/24 16:59 Dose: Not Given Labetalol HCl (Labetalol Hcl Iv 5 Mg/Ml 20ml) 10 mg IV Q6H PRN PRN Reason: Hypertension Stop: 06/05/24 21:51 Last Admin: 05/07/24 14:33 Dose: 10 mg Losartan Potassium (Losartan Potassium 25 Mg Tab) 25 mg PO QAM [facility] Stop: 06/06/24 08:59 Last Admin: 05/07/24 08:39 Dose: 25 mg Metoprolol Succinate (Metoprolol Succ 25mg Ext Rel Tab) 25 mg PO BID [facility] Stop: 06/05/24 21:51 Last Admin: 05/07/24 08:39 Dose: 25 mg Miscellaneous (Carbohydrates For Hypoglycemia ) 15 - 30 gm PO UD PRN PRN Reason: Hypoglycemia Protocol Stop: 06/05/24 21:51 Ondansetron HCl (Ondansetron Inj 2 Mg/Ml 2 Ml Vial) 4 mg IV Q4H PRN PRN Reason: Nausea And Vomiting Stop: 06/05/24 21:51 Pantoprazole Sodium (Pantoprazole 40 Mg Tab) 40 mg PO QAM [facility] Stop: 06/06/24 08:59 Last Admin: 05/07/24 08:39 Dose: 40 mg Venlafaxine HCl (Venlafaxine Hcl 37.5 Mg Tab) 37.5 mg PO [facility] Stop: 06/05/24 21:51 Last Admin: 05/07/24 08:39 Dose: 37.5 mg
[2024-05-07] MEDS: CYANOCOBALAMIN (B-12) 500 MCG TABLET PO SCH (20:46)
--- NOTE | 2024-05-07 21:20 | Electrocardiogram Report ---
Test Reason : Blood Pressure : */* mmHG Vent. Rate : 89 BPM Atrial Rate : * BPM P-R Int : * ms QRS Dur : 88 ms QT Int : 376 ms P-R-T Axes : * -10 192 degrees QTcB Int : 457 ms Atrial fibrillation Inferior infarct , age undetermined Nonspecific T wave abnormality Abnormal ECG When compared with ECG of 14-Apr-2024 05:53, Inferior infarct is now Present Confirmed by Cesar Lemons ([id number]) on 05/07/2024 9:20:25 PM Referred By: REFERRED SELF Confirmed By: Cesar Lemons
[2024-05-08 07:33] LABS: Basophils # (auto) 0.07 K/uL (0.00-0.20); Basophils % (auto) 0.8 %; Eosinophils # (auto) 0.26 K/uL (0.00-0.50); Hematocrit (blood only) 37.3 % (42.0-52.0); Hemoglobin 13.2 g/dl (14.0-18.0); Immature Granulocytes # (auto) 0.04 K/uL (0.01-0.20); Immature Granulocytes % (auto) 0.5 %; Lymphocytes % (auto) 29.9 %; Mean Corpuscular Hgb Conc 35.4 g/dL (32.0-36.0); Mean Corpuscular Volume 90.3 fL (80.0-100.0); Mean Platelet Volume 10.3 fL (9.4-12.4); Monocytes # (auto) 0.94 K/uL (0.11-0.59); Monocytes % (auto) 10.8 %; Platelet Count 220 K/uL (130-400); RDW Coefficient of Variation 12.7 % (11.5-14.5); RDW Standard Deviation 41.9 fL (36.4-46.3); Red Blood Count 4.13 M/uL (4.70-6.10); White Blood Count 8.71 K/ul (4.8-10.8)
[2024-05-08 07:55] LABS: BUN Creatinine Ratio 19.5 (10-20); Creatinine Clr Calc Pharmacy 118.6 ml/min; Est GFR (African American) 107.3 ml/min; Est GFR (Non-African American) 92.6 ml/min; Magnesium 1.8 mg/dl (1.7-2.4); Potassium 3.8 mmol/L (3.5-5.1)
[2024-05-08] MEDS: POLYETHYLENE (MIRALAX) 17 GM PACK PO SCH (09:47)
[2024-05-08 11:28] VITALS: TEMP 97.3; O2SAT 95
--- NOTE | 2024-05-08 12:36 | Hospitalist Progress Note ---
Date of Service May 08, 2024 Assessment & Plan (1) Internal carotid artery stent present: (2) S/P vascular surgery: (3) Acute confusion: Plan Acute confusion No apparent cause of confusion acute confusion is identified Denies any more confusion during examination Blood pressure remains on the upper side but no other significant findings Recent carotid artery surgery side as documented below Remains medically stable without any more confusion noted since admission No evidence of infection found He wants to go home and will be discharged home this afternoon S/p LEFT-sided TCAR procedure-on 05/04/2024 Hx of carotid stenosis with recent CVA (04/13/24). - BP is elevated at 188/109, will aim to keep SBP less than 180 and DBP less than 110 with IV labetalol prn. - CT imaging reviewed: 1. A left carotid stent is new from previous and widely patent. 2. There is no evidence of significant stenosis or focal vessel occlusion throughout the neck vessels. 3. Soft tissues: There is marked superficial and deep soft tissue edema seen throughout the left neck with edema and expansion of the left sternocleidomastoid muscle. This extends from the angle of the mandible to the upper chest. There are foci of gas within and adjacent to the left sternocleidomastoid with surrounding fluid. There is infiltration of the left parapharyngeal fat. No organized fluid collection is clearly identified. The airway is patent. The thyroid gland is mildly enlarged and heterogeneous. The salivary glands are normal as visualized. No cervical lymphadenopathy is seen. 4. Periodontal disease as above. Follow-up with dentistry is recommended. Noted to have significant swelling and bruising involving the lower neck mostly on the left side Does not have any compromise with breathing and/or swallowing Denies any pain Appreciate vascular surgery input and recommendation Will have follow-up as an outpatient with the vascular surgery as planned Neck swelling seems to be improving a little bit and the area of bruising seems to be confined Strongly advised to keep her appointment with the vascular surgery as an outpatient Hypertension: - As above - Patient with significant hypertension postoperatively on 05/04, required nicardipine gtt at that time. Again BP of 188/92 on admission - improved to 150s SBP after given dose of labetolol in the ER. - Home meds include losartan 25 mg daily, metoprolol succinate 25 BID -Blood pressure remains on the upper side at 167/103 Will monitor-in the telemetry unit Blood pressure remains stable at 164/103 on the higher side Atrial Fibrillation - Rate control, Anticoagulated on Eliquis 5 mg twice daily History of CVA -Plavix, 81 mg aspirin daily, atorvastatin 40 mg daily DM II -ISS with accuchecks ACHS - Last A1C was 6.4 GERD -Continue Protonix DVT ppx: teds, scds Lines: PIV x 2 FEN/GI: HH/DM diet CODE: Full code Dispo: From home, likely to remain in the hospital x 1-2 days Will be discharged home this afternoon Admission and Anticipated Discharge Date Admission Date: May 06, 2024 Subjective 05/07/2024 Patient was seen and examined in the emergency room He is a status post left transcarotid artery revascularization on 05/04/2024 Was admitted yesterday with acute confusion and is worried about swelling and bruising of the neck Remained hemodynamically stable during my examination and denies any problems with breathing or speaking His acute confusion is resolved 05/08/2024 The patient was seen and examined in telemetry unit He has been stable without any acute symptoms Confusion has been resolved Denies any neck pain and/or increasing swelling or increasing bruising Review of Systems Review of Systems: All systems reviewed and are unremarkable except as noted below Physical Exam Physical Exam: Lying in bed without any acute distress Constitutional: well developed, well nourished, + ill appearing and + obese Eyes: PERRL, conjunctivae normal, anicteric sclerae ENMT: external ear and nose normal, oropharynx normal Neck: + abnormal visual inspection (Extensive bruising and moderate swelling involving the lower neck, mostly r) Respiratory: no respiratory distress Auscultation: lungs clear to auscultation bilaterally Cardiovascular: Rate/Rhythm: regular rate and regular rhythm; not tachycardic Heart Sounds: normal S1 and normal S2; no murmur Extremities: no edema Gastrointestinal (Abdomen): Inspection/Auscultation: normal bowel sounds; abdomen not distended Percussion/Palpation: abdomen soft; abdomen nontender Neurologic: normal touch/pain/proprioception and moves all extremities; no focal motor deficits Lymphatic: no cervical or axillary lymphadenopathy Results & Data Results & Data Vital Signs (Past 12 Hours) Vital Signs Temp Pulse Pulse Resp BP BP Pulse Ox 05/08/24 11:50 160/103 H 164/103 H 08/30/24 11:27 36.3 C L 83 18 95 05/08/24 08:00 74 05/08/24 08:00 05/08/24 07:12 36.6 C 75 18 157/109 H 96 05/08/24 03:00 36.5 C 80 17 152/83 H 97 O2 Del Method 05/08/24 11:50 05/08/24 11:27 Room Air 05/08/24 08:00 05/08/24 08:00 Room Air 05/08/24 07:12 Room Air 05/08/24 03:00 Room Air Laboratory Results Short CBC 05/08/24 Range/Units 06:58 WBC 8.71 (4.8-10.8) K/ul Hgb 13.2 L (14.0-18.0) g/dl Hct 37.3 L (42.0-52.0) % Plt Count 220 (130-400) K/uL BMP 05/08/24 06:58 Sodium 138 Potassium 3.8 Chloride 103 Carbon Dioxide 28 BUN 15 Creatinine 0.77 Glucose 123 H Calcium 9.0 Medications Administered Current Inpatient Medications Acetaminophen (Acetaminophen 325 Mg Tab) 650 mg PO Q4H PRN PRN Reason: Moderate Pain (Scale 4, 5, 6) Stop: 06/05/24 21:51 Apixaban (Apixaban 5 Mg Tablet) 5 mg PO BID [facility] Stop: 06/05/24 21:51 Last Admin: 05/08/24 08:24 Dose: 5 mg Aripiprazole (Aripiprazole 1 Mg/Ml Oral Soln 150 Ml Btl) 2 mg PO [facility] Stop: 06/06/24 08:59 Last Admin: 05/08/24 08:24 Dose: 2 mg Aspirin (Aspirin 81 Mg Ectab) 81 mg PO [facility] Stop: 06/06/24 08:59 Last Admin: 05/08/24 08:25 Dose: 81 mg Atorvastatin Calcium (Atorvastatin 40 Mg Tab) 40 mg PO [facility] Stop: 06/06/24 08:59 Last Admin: 05/08/24 08:25 Dose: 40 mg Clonidine HCl (Clonidine Hcl 0.1 Mg Tab) 0.1 mg PO [facility] Stop: 06/05/24 21:51 Last Admin: 05/08/24 08:24 Dose: 0.1 mg Clopidogrel Bisulfate (Clopidogrel Bisulfate 75 Mg Tab) 75 mg PO [facility] Stop: 06/06/24 08:59 Last Admin: 05/08/24 08:24 Dose: 75 mg Cyanocobalamin (Cyanocobalamin (B-12) 500 Mcg Tablet) 500 mcg PO QAM [facility] Stop: 06/06/24 17:44 Last Admin: 05/08/24 08:24 Dose: 500 mcg Dextrose (Dextrose 50% 50 Ml Syringe) 25 - 50 ml IV UD PRN; Protocol PRN Reason: Hypoglycemia Protocol Stop: 06/05/24 21:51 Glucagon (Glucagon For Inj 1 Mg Vial) 1 mg SQ UD PRN; Protocol PRN Reason: Hypoglycemia Protocol Stop: 06/05/24 21:51 Glucose (Glucose 40% Gel 15 Gm Tube) 15 - 30 gm PO UD PRN; Protocol PRN Reason: Hypoglycemia Protocol Stop: 06/05/24 21:51 Glucose (Glucose 10 Tab/Tube) 4 - 8 tab PO UD PRN; Protocol PRN Reason: Hypoglycemia Treatment Stop: 06/05/24 21:51 Hydroxyzine HCl (Hydroxyzine Hcl 25 Mg Tab) 50 mg PO HS PRN PRN Reason: Sleep Stop: 06/05/24 21:51 Insulin Aspart (Insulin Aspart Per Unit Charge) 0 units SC ACHS [facility] Stop: 06/05/24 21:51 Last Admin: 05/08/24 11:51 Dose: Not Given Labetalol HCl (Labetalol Hcl Iv 5 Mg/Ml 20ml) 10 mg IV Q6H PRN PRN Reason: Hypertension Stop: 06/05/24 21:51 Last Admin: 05/07/24 14:33 Dose: 10 mg Losartan Potassium (Losartan Potassium 25 Mg Tab) 25 mg PO QAM [facility] Stop: 06/06/24 08:59 Last Admin: 05/08/24 08:24 Dose: 25 mg Metoprolol Succinate (Metoprolol Succ 25mg Ext Rel Tab) 25 mg PO BID [facility] Stop: 06/05/24 21:51 Last Admin: 05/08/24 08:24 Dose: 25 mg Miscellaneous (Carbohydrates For Hypoglycemia ) 15 - 30 gm PO UD PRN PRN Reason: Hypoglycemia Protocol Stop: 06/05/24 21:51 Ondansetron HCl (Ondansetron Inj 2 Mg/Ml 2 Ml Vial) 4 mg IV Q4H PRN PRN Reason: Nausea And Vomiting Stop: 06/05/24 21:51 Pantoprazole Sodium (Pantoprazole 40 Mg Tab) 40 mg PO QAM [facility] Stop: 06/06/24 08:59 Last Admin: 05/08/24 08:25 Dose: 40 mg Polyethylene Glycol (Polyethylene (Miralax) 17 Gm Pack) 17 gm PO DAILY [facility] Stop: 06/07/24 09:29 Last Admin: 05/08/24 09:47 Dose: 17 gm Venlafaxine HCl (Venlafaxine Hcl 37.5 Mg Tab) 37.5 mg PO [facility] Stop: 06/05/24 21:51 Last Admin: 05/08/24 08:24 Dose: 37.5 mg
[2024-05-08 15:10] VITALS: RESP 16
[2024-05-08 16:08] VITALS: BP 160/103; PULSE 79
--- NOTE | 2024-05-09 07:44 | Discharge Summary ---
Date of Service May 09, 2024 Admission HPI Per Admitting Provider This is a 68 yo M with PMHX of recent admission from 05/04-05/05 under vascular surgery service where he underwent Left transcarotid artery revascularization on 05/[address] Jiang with history of left ICA stenosis with remote hx of CVA on 04/13/24, noted at that time to test positive for COVID+19,. Access was through the right groin venous puncture, yesterday he had some bleeding from the site however after pressure was held manually x 10 minutes bleeding stopped. Overnight on 05/04 and 05/05 the patient required being on a nicardipine drip due to systolic blood pressure greater than 180. It was discussed that since he has severely uncontrolled hypertension at baseline it was stopped. Other PMHx includes depression, anxiety, sleep apnea requiring CPAP, diabetes and hypertension. The patient presents today due to worsening confusion. His , Margo, is present with him at bedside. She saw him wake up around 8am before going to work today, but then received a voicemail on her cell phone from the patient that he didn't know where he was, didn't know what was going on, and wanted her to call him back. He does recall calling his spouse this morning. In the interim of getting him here to the hospital, his confusion has completely resolved. He does not have any acute complaints other than feeling sore in his neck where the surgery was. thinks neck appears much more swollen compared to what it was yesterday. The patient slept laying flat last evening. He is able to participate in conversation, responds appropriately and follows all commands. His left leg is slightly weaker than the right however mentions it has been like that for a long time, even prior to the stroke he had at the beginning of April. Admission Exam Per Admitting Provider Physical Exam: General: awake, alert, no apparent distress Head: Normocephalic, s/p Left TCAR with significant ecchymosis around large area of the neck, skin is tense superiorly to the incision site which is glue/sutured. No signs of purulent drainage. ENT: PERRL, EOMI, no pharyngeal exudate, mucous membranes moist Chest: Clear to auscultation, on room air, no adventitious breath sounds Cardiac: Regular rate and rhythm, no murmur, no JVD, normal peripheral pulses, good capillary refill Abdominal: NABS x 4 quadrants, soft, nondistended, nontender to palpation, no rebound or guarding Extremities: Normal inspection, no peripheral edema or erythema, calfs nontender to palpation Psych: Normal mood and affect Neuro: AAO x 3, strength intact bilaterally and rated grossly 5/5, hip flexor strength 4/5 on the left leg compared to 5/5 in the right. pt can perform neuro testing, finger to nose, no motor deficits, speech is clear, no peripheral sensory deficits Principal Diagnosis Acute confusion-resolved, recent left TCAR on 05/04/2024-remains stable, hypertension Discharge Exam Lying in bed without any acute distress Constitutional well developed, well nourished, + ill appearing and + obese Eyes PERRL, conjunctivae normal, anicteric sclerae ENMT external ear and nose normal, oropharynx normal Neck + abnormal visual inspection (Extensive bruising and moderate swelling involving the lower neck, mostly r) Respiratory no respiratory distress Auscultation: lungs clear to auscultation bilaterally Cardiovascular Rate/Rhythm: regular rate and regular rhythm; not tachycardic Heart Sounds: normal S1 and normal S2; no murmur Extremities: no edema Gastrointestinal (Abdomen) Inspection/Auscultation: normal bowel sounds; abdomen not distended Percussion/Palpation: abdomen soft; abdomen nontender Neurologic normal touch/pain/proprioception and moves all extremities; no focal motor deficits Lymphatic no cervical or axillary lymphadenopathy Discharge Data Allergies Allergy/AdvReac Type Severity Reaction Status Date / Time bee venom protein (honey bee) Allergy Severe Difficulty Verified 05/06/24 16:25 Breathing lisinopril AdvReac Intermediate dry cough Verified 05/06/24 16:25 Consultations 05/06/24 16:23 ED Decision to Admit Stat 05/06/24 17:31 Consult Vascular Surgery Routine Ordered Studies 05/06/24 13:05 CT head/brain wo con Stat 05/06/24 13:59 CT angio head w con Stat CT angio neck with con Stat Hospital Course (1) Internal carotid artery stent present: (2) S/P vascular surgery: (3) Acute confusion: Plan Acute confusion No apparent cause of confusion acute confusion is identified Denies any more confusion during examination Blood pressure remains on the upper side but no other significant findings Recent carotid artery surgery side as documented below Remains medically stable without any more confusion noted since admission No evidence of infection found He wants to go home and will be discharged home this afternoon S/p LEFT-sided TCAR procedure-on 05/04/2024 Hx of carotid stenosis with recent CVA (04/13/24). - BP is elevated at 188/109, will aim to keep SBP less than 180 and DBP less anil n 110 with IV labetalol prn. - CT imaging reviewed: 1. A left carotid stent is new from previous and widely patent. 2. There is no evidence of significant stenosis or focal vessel occlusion throughout the neck vessels. 3. Soft tissues: There is marked superficial and deep soft tissue edema seen throughout the left neck with edema and expansion of the left sternocleidomastoid muscle. This extends from the angle of the mandible to the upper chest. There are foci of gas within and adjacent to the left sternocleidomastoid with surrounding fluid. There is infiltration of the left pa rapharyngeal fat. No organized fluid collection is clearly identified. The airway is patent. The thyroid gland is mildly enlarged and heterogeneous. The salivary glands are normal as visualized. No cervical lymphadenopathy is seen. 4. Periodontal disease as above. Follow-up with dentistry is recommended. Noted to have significant swelling and bruising involving the lower neck mostly on the left side Does not have any compromise with breathing and/or swallowing Denies any pain Appreciate vascular surgery input and recommendation Will have follow-up as an outpatient with the vascular surgery as planned Neck swelling seems to be improving a little bit and the area of bruising seems to be confined Strongly advised to keep her appointment with the vascular surgery as an outpatient Hypertension: - As above - Patient with significant hypertension postoperatively on 05/04, required nicardipine gtt at that time. Again BP of 188/92 on admission - improved to 150s SBP after given dose of labetolol in the ER. - Home meds include losartan 25 mg daily, metoprolol succinate 25 BID -Blood pressure remains on the upper side at 167/103 Will monitor-in the telemetry unit Blood pressure remains stable at 164/103 on the higher side Atrial Fibrillation - Rate control, Anticoagulated on Eliquis 5 mg twice daily History of CVA -Plavix, 81 mg aspirin daily, atorvastatin 40 mg daily DM II -ISS with accuchecks ACHS - Last A1C was 6.4 GERD -Continue Protonix DVT ppx: teds, scds Lines: PIV x 2 FEN/GI: HH/DM diet CODE: Full code Dispo: From home, likely to remain in the hospital x 1-2 days Will be discharged home this afternoon Total Time Total Time Spent Total Time Spent (In Minutes): 35 minutes Discharge Plan Discharge Items Patient Disposition: Home - Self-Care Reason For Visit: CONFUSION, SOFT TISSUE INFECTION NECK Discharge Diagnosis: Acute confusion-resolved, recent left TCAR on 05/04/2024-remains stable, hypertension Condition on Discharge: Fair Activity: Resume your previous activity Non-emergency contact: Primary Care Provider Call non-emergency contact if: you have any medication questions and your symptoms worsen Follow-up/Referrals: Alejandra Velazquez MD [Primary Care Provider] - (Date & Time 05/13/2024 12:00 PM Provider Alejandra Velazquez MD Department [facility] ) Diet: Carb Consistent or DM2 and Heart Healthy Addtl Attending Provider Instructions: Please take precautions to avoid falls Take your medications as advised Your new medications include vitamin B12 500 mcg daily and Your losartan has been increased to 50 mg once a day for better control of blood pressure Please keep appointments with the healthcare providers Pending Studies at Discharge: No Stand-Alone Forms: [employer], Smoking Cessation Medications and DC Order Prescriptions: New cyanocobalamin (vitamin B-12) 500 mcg Tablet 500 mcg PO QAM Qty: 30 0RF losartan 50 mg tablet 50 mg PO DAILY Qty: 30 0RF Continued clonidine HCl 0.1 mg tablet 0.1 mg PO AMHS hydroxyzine HCl 50 mg tablet 50 mg PO HS PRN (Reason: prn) garlic 500 mg Capsule 500 mg PO QAM venlafaxine 37.5 mg tablet 37.5 mg PO AMHS metformin 1,000 mg tablet 1,000 mg PO BIDWMEAL aripiprazole [Abilify] 2 mg Tablet 2 mg PO QAM coQ10 (ubiquinol) 100 mg Capsule 100 mg PO QAM aspirin 81 mg Tablet,Delayed Release (Dr/Ec) 81 mg PO QAM atorvastatin 40 mg Tablet 40 mg PO QAM 30 Days Qty: 30 0RF Eliquis 5 mg tablet 5 mg PO BID Qty: 60 0RF metoprolol succinate 25 mg Tablet Extended Release 24 Hr 25 mg PO BID 30 Days Qty: 60 0RF clopidogrel [Plavix] 75 mg tablet 75 mg PO QAM pantoprazole 40 mg tablet,delayed release (DR/EC) 40 mg PO QAM oxycodone-acetaminophen [Percocet] 5-325 mg Tablet 1 - 2 tab PO Q6H PRN (Reason: pain) Qty: 10 0RF Discontinued losartan 25 mg Tablet 25 mg PO QAM 30 Days Qty: 30 0RF Discharge Orders: Discharge Order (Routine); Ordered 05/08/24 Ordered By: Venkata Guthrie Admission Data Admit Date/Time: 05/06/24 17:31 Attending Provider: Venkata Guthrie Admit Provider: Ethel Casas Primary Care Provider: Alejandra Velazquez Other Providers: Osmani Jiang; Ethel Casas Other Interventions: Discharge Summary Assessment (RN) Last Done: 05/08/24 16:41
== END 2024-05-08 16:41 | disposition home or self-care (01) | DRG 948 ==
LOC: ED 12:46 → EDINP 17:31 → SUATTDRO 17:31 → 4W 21:52